=== PATIENT | male | born 1980 | race American Indian/Alaskan Native ===

== ENCOUNTER 2017-12-06 15:29 | Emergency (ER) | payer MEDICAID ==
[2017-12-06 15:41] VITALS: TEMP 99.5
--- NOTE | 2017-12-06 15:48 | ED PDOC ---
Arrival/HPI - General Chief Complaint: Weakness/Neurological Deficit Time Seen by Provider: 12/06/17 15:32 Historian: Patient, EMS - History of Present Illness Narrative History of Present Illness (Text): 12/06/17 15:43 Patient is a 37 year old male whose past medical history includes hypertension, who presents to Emergency department by EMS for an episode of near syncope. Patient reports that he was trying to stand after sleeping and felt like he was about to lose consciousness with associated numbness and tingling throughout his upper and lower extremities. He also mentions "seeing stars". Patient subsequently measured his BP at home and found it to be 91/60 which prompted his call to 911. EMS staff expressed that patient's symptoms is probably due to dehydration. Patient admits to drinking EtOH yesterday. Patient denies fevers , chills, chest pain, shortness of breath, dyspnea on exertion, cough, abdominal pain, nausea, vomiting, diarrhea, back pain, neck pain or any other complaint. Time/Duration: Prior to Arrival Symptom Onset: Sudden Activities at Onset: Rest Context: Home Past Medical History - Provider Review Nursing Documentation Reviewed: Yes - Cardiac Hx Hypertension: Yes - Psychiatric Hx Substance Use: No - Anesthesia Hx Anesthesia: No Hx Anesthesia Reactions: No Hx Malignant Hyperthermia: No Family/Social History - Physician Review Nursing Documentation Reviewed: Yes Family/Social History: No Known Family HX Smoking Status: Light Smoker < 10 Cigarettes Daily Hx Alcohol Use: No Hx Substance Use: No Allergies/Home Meds Allergies/Adverse Reactions: Allergies No Known Allergies Allergy (Verified 12/06/17 15:34) Home Medications: Home Meds Medication Instructions Recorded Confirmed No Known Home Med 12/06/17 12/06/17 Review of Systems - Physician Review All systems were reviewed & negative as marked: Yes - Review of Systems Constitutional: absent: Fevers Respiratory: absent: SOB, Cough Cardiovascular: absent: Chest Pain, [place] Gastrointestinal: absent: Abdominal Pain, Diarrhea, Nausea, Vomiting Musculoskeletal: absent: Back Pain, Neck Pain Neurological: Dizziness Physical Exam Vital Signs Reviewed: Yes Vital Signs Temp Pulse Resp BP Pulse Ox 12/06/17 21:02 65 17 128/76 100 12/06/17 19:54 68 18 125/80 100 12/06/17 15:40 99.5 F 78 18 123/79 98 Temperature: Afebrile Blood Pressure: Normal Pulse: Regular Respiratory Rate: Normal Appearance: Positive for: Well-Appearing Mental Status: Positive for: Alert and Oriented X 3 - Systems Exam Head: Present: Atraumatic, Normocephalic Pupils: Present: PERRL Extroacular Muscles: Present: EOMI Conjunctiva: Present: Normal Mouth: Present: Moist Mucous Membranes Neck: Present: Normal Range of Motion Respiratory/Chest: Present: Clear to Auscultation, Good Air Exchange. No: Respiratory Distress, Accessory Muscle Use Cardiovascular: Present: Regular Rate and Rhythm, Normal S1, S2. No: Murmurs Abdomen: No: Tenderness, Distention, Peritoneal Signs Back: Present: Normal Inspection Upper Extremity: Present: Normal Inspection. No: Cyanosis, Edema Lower Extremity: Present: Normal Inspection. No: Edema Neurological: Present: GCS=15, CN II-XII Intact, Speech Normal Skin: Present: Warm, Dry, Normal Color. No: Rashes Psychiatric: Present: Alert, Oriented x 3, Normal Insight, Normal Concentration Medical Decision Making ED Course and Treatment: 12/06/17 15:51 Impression: Patient is a 37 year old male who is complaining of near syncope and associated dizziness. Differential Diagnosis included but are not limited to: Dehydration vs.near syncope vs. vasovagal syncope Plan: --labs --cardiac enzymes --D-dimer --EKG --Chest X-ray --Urinalysis -- Reassess and disposition Prior Visits: Notes and results from previous visits were reviewed. Progress Notes: EKG shows NSR at 83 BPM with normal axis and intervals. Interpreted by me. 12/04/17 Chest X-ray shows no acute processes. 12/06/17 Reevaluation: On reevaluation the patient feels better and is in no acute distress. I have discussed the results and plan with the patient, who expresses understanding. Patient given the opportunity to ask question, all questions were answered and there is agreement with the plan to discharge the patient home. Patient is stable for discharge. Patient instructed to drink plenty of water and avoid alcohol. Patient was instructed to follow up with physician/clinic in 1-2 days or return if symptoms persist/worsen or new concerning symptoms arise. 12/06/17 21:34 - Lab Interpretations Lab Results: 12/06/17 16:20 12/06/17 16:20 Lab Results 06/08/18 19:23: Urine Opiates Screen Negative, Urine Methadone Screen Negative, Ur Barbiturates Screen Negative, Ur Phencyclidine Scrn Negative, Ur Amphetamines Screen Negative, U Benzodiazepines Scrn Negative, U Oth Cocaine Metabols Negative, U Cannabinoids Screen Negative 12/06/17 17:02: POC Glucose (mg/dL) 82 12/06/17 16:20: Alcohol, Quantitative < 10 12/06/17 16:20: Sodium 137, Potassium 3.7, Chloride 96 L, Carbon Dioxide 23, Anion Gap 21 H, BUN 20, Creatinine 1.3, Est GFR ( Amer) > 60, Est GFR ( Non-Af Amer) > 60, Random Glucose 81, Calcium 8.3 L, Total Bilirubin 3.4 H, AST 363 H, ALT 150 H, Alkaline Phosphatase 295 H, Lactate Dehydrogenase 965 H, Total Creatine Kinase 147, Troponin I 0.02, NT-Pro-B Natriuret Pep 95.5, Total Protein 7.3, Albumin 3.6, Globulin 3.7, Albumin/Globulin Ratio 1.0 L 12/06/17 16:20: Urine Color Yellow, Urine Appearance Clear, Urine pH 6.0, Ur Specific Bradley 1.020, Urine Protein Negative, Urine Glucose (UA) Negative, Urine Ketones Trace H, Urine Blood Negative, Urine Nitrate Negative, Urine Bilirubin Small H, Urine Urobilinogen 2.0 H, Ur Leukocyte Esterase Negative 12/06/17 16:20: PT 12.8 H, INR 1.12 H, D-Dimer, Quantitative < 200 12/06/17 16:20: WBC 5.0, RBC 3.83, Hgb 11.5 L, Hct 32.6 L, MCV 85.1, MCH 30.0, MCHC 35.3, RDW 14.9 H, Plt Count 296, MPV 9.6, Gran % 60.6, Lymph % (Auto) 31.4 , [place] % (Auto) 7.0 H, Eos % (Auto) 0.0 L, Baso % (Auto) 1.0, Gran # 3.01, Lymph # (Auto) 1.6, [place] # (Auto) 0.4, Eos # (Auto) 0.0, Baso # (Auto) 0.05 I have reviewed the lab results: Yes - RAD Interpretation Radiology Orders: 12/06/17 15:37 CHEST PORTABLE [RAD] Stat - EKG Interpretation Interpreted by ED Physician: Yes Type: 12 lead EKG - Medication Orders Current Medication Orders: Discontinued Medications Sodium Chloride (Sodium Chloride 0.9%) 2,000 mls @ 999 mls/hr IV .Q2H1M STA Stop: 12/06/17 19:23 Last Admin: 12/06/17 17:41 Dose: 999 mls/hr eMAR Start Stop Document 12/06/17 17:41 SF (Rec: 12/06/17 17:41 SF [email or web address]) Intravenous Solution Start Date 12/06/17 Start Time 17:41 End Date 12/06/17 End time 19:42 Total Infusion Time 121 - Scribe Statement The provider has reviewed the documentation as recorded by the Scribe Sahil Henriquez Provider Scribe Attestation: All medical record entries made by the Scribe were at my direction and personally dictated by me. I have reviewed the chart and agree that the record accurately reflects my personal performance of the history, physical exam, medical decision making, and the department course for this patient. I have also personally directed, reviewed, and agree with the discharge instructions and disposition. Disposition/Present on Arrival - Present on Arrival Any Indicators Present on Arrival: No History of DVT/PE: No History of Uncontrolled Diabetes: No Urinary Catheter: No History of Decub. Ulcer: No History Surgical Site Infection Following: None - Disposition Have Diagnosis and Disposition been Completed?: Yes Diagnosis: Mild dehydration, Near syncope Disposition: HOME/ ROUTINE Disposition Time: 20:41 Patient Plan: Discharge Condition: GOOD Discharge Instructions (ExitCare): Dehydration, Adult (DC), Vasovagal Response (DC) Additional Instructions: Drink 5 20 ounce bottles of bhatt each day. Return to us if problems. Avoid Alcohol. Referrals: [facility] Karyn Resantiago, [Primary Care Provider] - Follow up with primary Forms: WORK NOTE, [facility] (N[place]ian), SCHOOL NOTE
[2017-12-06 17:11] LABS: BASO # 0.05 K/mm3 (0.0-2.0); GRAN # 3.01 (1.4-6.5); GRAN % 60.6 % (50.0-68.0); HEMOGLOBIN 11.5 g/dL (14.0-18.0); LYMPH # 1.6 (1.2-3.4); LYMPH % 31.4 % (22.0-35.0); MEAN CELL VOLUME 85.1 fl (80.0-105.0); MEAN CORPUSCULAR HGB CONC 35.3 g/dl (31.0-37.0); MEAN PLATELET VOLUME 9.6 fl (7.0-11.0); MONO # 0.4 (0.1-0.6); RBC 3.83 10^6/uL (3.5-6.1); RED CELL DISTRIBUTION WIDTH 14.9 % (11.5-14.5); URINE BILIRUBIN SMALL (NEGATIVE); URINE BLOOD NEGATIVE (NEGATIVE); URINE GLUCOSE (UA) NEGATIVE (NEGATIVE); URINE LEUKOCYTE ESTERASE NEGATIVE Leu/uL (NEGATIVE); URINE PROTEIN NEGATIVE mg/dL (<30 mg/dL)
[2017-12-06 17:14] LABS: URINE APPEARANCE CLEAR (CLEAR); URINE COLOR YELLOW (YELLOW)
[2017-12-06 17:23] LABS: INR 1.12 (0.93-1.08); PROTHROMBIN TIME 12.8 SECONDS (9.4-12.5)
[2017-12-06] MEDS ORDERED: Sodium Chloride 0.9% 2,000 ML IV STA (17:23)
[2017-12-06 17:26] LABS: ALBUMIN 3.6 g/dL (3.0-4.8); ALT/SGPT 150 U/L (7-56); AST/SGOT 363 U/L (17-59); BLOOD UREA NITROGEN 20 mg/dL (7-21); CALCIUM 8.3 mg/dL (8.4-10.5); GFR AFRICAN-AMERICAN > 60; GFR NON-AFRICAN AMERICAN > 60
[2017-12-06 17:36] LABS: B-TYPE NATRIURETIC PEPTIDE 95.5 pg/mL (0-450); TROPONIN I 0.02 ng/mL
[2017-12-06 18:31] LABS: D DIMER < 200 ng/mL (0-243)
[2017-12-06 19:55] VITALS: O2SAT 100
[2017-12-06 20:04] LABS: BARBITURATES, UR NEGATIVE (NEGATIVE); BENZODIAZEPINES, UR NEGATIVE (NEGATIVE); OPIATES, UR NEGATIVE (NEGATIVE); PHENCYCLIDINE, UR NEGATIVE (NEGATIVE)
[2017-12-06 21:03] VITALS: BP 128/76; PULSE 65; RESP 17
--- NOTE | 2017-12-07 08:50 | RAD ---
HISTORY: Near Syncope COMPARISON: No prior. FINDINGS: LUNGS: No active pulmonary disease. PLEURA: No significant pleural effusion identified, no pneumothorax apparent. CARDIOVASCULAR: Normal. OSSEOUS STRUCTURES: No significant abnormalities. VISUALIZED UPPER ABDOMEN: Normal. OTHER FINDINGS: None. IMPRESSION: No active disease.
--- NOTE | 2017-12-07 09:51 | CARD ---
APPROVED REPORT EKG Measurement Heart [id number] 146P38 [id number] <Conclusion> Normal sinus rhythm Moderate voltage criteria for LVH, may be normal variant Nonspecific T wave abnormality
== END 2017-12-06 21:02 | disposition home or self-care (01) ==
LOC: MERGE 15:29 → ED 15:29
DX: R55 Syncope and collapse (principal)
CPT/HCPCS: 71045; 80053; 80320; 80324; 80345; 80346; 80349; 80353; 80358; 80361; 81003; 82550; 82948; 83615; 83880; 83992; 84484; 85025; 85378; 85610; 93005; 96360; 96361; 99285; J7030

== ENCOUNTER 2018-07-02 08:27 | Observation (INO) | payer MEDICAID ==
[2018-07-02] MEDS ORDERED: Sodium Chloride 0.9% 1,000 ML IV STA ×2 (08:40→09:43)
--- NOTE | 2018-07-02 08:55 | ED PDOC ---
Arrival/HPI - General Historian: Patient - History of Present Illness Narrative History of Present Illness (Text): 07/02/18 08:55 37M with recent episode of acute pancreatitis in August presents to emergency department with 24hrs of severe epigastric pain, nausea, and anorexia. Pt drank over a pint of hard liquor on , woke up yesterday AM with "terrible stomach pain", states it feels exactly the same as when he had pancreatitis. Pt denies vomit, chest pain, diarrhea, lower abdominal pains. Pt states he has had dark urines since yesterday as well. Time/Duration: 24 hours Symptom Onset: Sudden Symptom Course: Unchanged Quality: Stabbing Severity Level: Severe <Temo Casiano - Last Filed: 07/02/18 17:35> <Gerardo Cancino DO - Last Filed: 07/02/18 18:47> - General Chief Complaint: Abdominal Pain Time Seen by Provider: 07/02/18 08:32 Past Medical History - Provider Review Nursing Documentation Reviewed: Yes - Infectious Disease Hx of Infectious Diseases: None - Cardiac Hx Hypertension: Yes - Pulmonary Hx Respiratory Disorders: No - Neurological Hx Neurological Disorder: No - HEENT Hx HEENT Disorder: No - Renal Hx Renal Disorder: No - Endocrine/Metabolic Hx Endocrine Disorders: No - Hematological/Oncological Hx Blood Disorders: No Hx Blood Transfusions: No Hx Blood Transfusion Reaction: No - Integumentary Hx Dermatological Disorder: No - Musculoskeletal/Rheumatological Hx Musculoskeletal Disorders: No Hx Falls: No - Gastrointestinal Hx Gastrointestinal Disorders: Yes Hx Gastroesophageal Reflux: Yes - Genitourinary/Gynecological Hx Genitourinary Disorders: No - Psychiatric Hx Psychophysiologic Disorder: No Hx Substance Use: No - Surgical History Hx Appendectomy: Yes Hx Cholecystectomy: Yes Hx Gastric Bypass Surgery: Yes - Anesthesia Hx Anesthesia: Yes <Temo Casiano - Last Filed: 07/02/18 17:35> Family/Social History - Physician Review Nursing Documentation Reviewed: Yes Family/Social History: Unknown Family HX Smoking Status: Never Smoked Hx Alcohol Use: Yes Frequency of alcohol use: Few days per week Hx Substance Use: No <Temo Casiano - Last Filed: 07/02/18 17:35> Allergies/Home Meds <Temo Casiano - Last Filed: 07/02/18 17:35> <Gerardo Cancino DO - Last Filed: 07/02/18 18:47> Allergies/Adverse Reactions: Allergies ramipril Adverse Reaction (Verified 07/02/18 08:34) ANGIOEDEMA Home Medications: Home Meds Medication Instructions Recorded Confirmed Losartan [Cozaar] 50 mg PO DAILY 07/02/18 07/02/18 Review of Systems - Physician Review All systems were reviewed & negative as marked: Yes - Review of Systems Constitutional: absent: Fevers, Night Sweats Respiratory: absent: SOB, Cough Cardiovascular: absent: Chest Pain, Palpitations Gastrointestinal: Abdominal Pain (sever epigastric), Nausea, Anorexia. absent: Diarrhea, Vomiting, Hematemesis Genitourinary Male: Other (dark urine) Musculoskeletal: Back Pain Skin: absent: Rash Neurological: absent: Headache <Temo Casiano - Last Filed: 07/02/18 17:35> Physical Exam Vital Signs Reviewed: Yes Vital Signs Temp Pulse Resp BP Pulse Ox 07/02/18 08:28 98.2 F 91 H 20 146/100 H 97 Temperature: Afebrile Blood Pressure: Hypertensive Pulse: Regular Respiratory Rate: Normal Appearance: Positive for: Non-Toxic, Uncomfortable Pain Distress: Moderate Mental Status: Positive for: Alert and Oriented X 3 - Systems Exam Head: Present: Atraumatic, Normocephalic Pupils: Present: PERRL Extroacular Muscles: Present: EOMI. No: Gaze Palsy Mouth: Present: Moist Mucous Membranes Respiratory/Chest: Present: Clear to Auscultation. No: Respiratory Distress, Wheezes, Rales Cardiovascular: Present: Regular Rate and Rhythm, Normal S1, S2 Abdomen: Present: Tenderness (mid epigastrum radiates to L side and back with deep palpation), Distention Upper Extremity: Present: Normal Inspection, NORMAL PULSES Neurological: Present: GCS=15, CN II-XII Intact Skin: Present: Warm, Dry. No: Rashes Psychiatric: Present: Alert, Oriented x 3 <Temo Casiano - Last Filed: 07/02/18 17:35> Vital Signs Temp Pulse Resp BP Pulse Ox 07/02/18 08:28 98.2 F 91 H 20 146/100 H 97 <Gerardo Cancino DO - Last Filed: 07/02/18 18:47> Medical Decision Making ED Course and Treatment: 07/02/18 09:06 #acute pancreatitis -NS 1 L Bolus -follow up cbc cmp lipase -Toradol 30 IVP -Zofran 4 IVP -Pepcid 20 IVP - Medication Orders Current Medication Orders: Sodium Chloride (Sodium Chloride 0.9%) 1,000 mls @ 1,000 mls/hr IV .Q1H STA Stop: 07/02/18 09:39 Ketorolac Tromethamine (Toradol) 30 mg IVP STAT STA Stop: 07/02/18 08:54 Discontinued Medications Famotidine (Pepcid) 20 mg IVP STAT STA Stop: 07/02/18 08:41 Ondansetron HCl (Zofran Inj) 4 mg IVP STAT STA Stop: 07/02/18 08:41 <Temo Casiano - Last Filed: 07/02/18 17:35> ED Course and Treatment: 07/02/18 09:21 Impression: 37 year old male presents to the emergency department complaining of abdominal pain and nausea since 24 hours. In agreement with resident note which contains more details about the patient. Patient seen and evaluated with resident. Came up with plan and treatment together. Plan: -- Labs -- Pepcid -- Toradol -- Zofran -- IV Fluids - Medication Orders Current Medication Orders: Sodium Chloride (Sodium Chloride 0.9%) 1,000 mls @ 1,000 mls/hr IV .Q1H STA Stop: 07/02/18 09:39 Last Admin: 07/02/18 09:09 Dose: 1,000 mls/hr eMAR Start Stop Document 07/02/18 09:09 SRE (Rec: 07/02/18 09:09 SRE [id number]) Intravenous Solution Start Date 07/02/18 Start Time 09:00 End Date 07/02/18 End time 10:00 Total Infusion Time 60 Discontinued Medications Famotidine (Pepcid) 20 mg IVP STAT STA Stop: 07/02/18 08:41 Last Admin: 07/02/18 09:05 Dose: 20 mg IVP Administration Document 07/02/18 09:05 SRE (Rec: 07/02/18 09:11 SRE [id number]) Charges for Administration # of IVP Administrations 1 Ketorolac Tromethamine (Toradol) 30 mg IVP STAT STA Stop: 07/02/18 08:54 Last Admin: 07/02/18 09:11 Dose: 30 mg MAR Pain Assessment Document 07/02/18 09:11 SRE (Rec: 07/02/18 09:11 [id number] Pain Reassessment Is this a pain reassessment? Yes Sleep Is patient sleeping during reassessment? No Presence of Pain Presence of Pain Yes Pain Scale Used Protocol: PSCALES Pain Scale Used Numeric Location Pain Location Body Site Abdomen Description Description Intermittent IVP Administration Document 07/02/18 09:11 SRE (Rec: 07/02/18 09:11 [id number] Charges for Administration # of IVP Administrations 1 Ondansetron HCl (Zofran Inj) 4 mg IVP STAT STA Stop: 07/02/18 08:41 Last Admin: 07/02/18 09:11 Dose: 4 mg IVP Administration Document 07/02/18 09:11 SRE (Rec: 07/02/18 09:11 [id number] Charges for Administration # of IVP Administrations 1 <Gerardo Cancino DO - Last Filed: 07/02/18 18:47> - PA / GRAIN ELEVATOR AGENT / Resident Statement MICHAEL has reviewed & agrees with the documentation as recorded. MICHAEL has examined the patient and agrees with the treatment plan. - Scribe Statement The provider has reviewed the documentation as recorded by the Scribe Tung maxwell with Jez All medical record entries made by the Scribe were at my direction and personally dictated by me. I have reviewed the chart and agree that the record accurately reflects my personal performance of the history, physical exam, medical decision making, and the department course for this patient. I have also personally directed, reviewed, and agree with the discharge instructions and disposition. <Gerardo Cancino DO - Last Filed: 07/02/18 18:47> Disposition/Present on Arrival - Present on Arrival Any Indicators Present on Arrival: No History of DVT/PE: No History of Uncontrolled Diabetes: No Urinary Catheter: No History of Decub. Ulcer: No History Surgical Site Infection Following: None - Disposition Have Diagnosis and Disposition been Completed?: Yes Disposition Time: 17:35 <Temo Casiano - Last Filed: 07/02/18 17:35> - Disposition Disposition Time: 11:00 <Gerardo Cancino DO - Last Filed: 07/02/18 18:47> - Disposition Diagnosis: Pancreatitis Disposition: HOSPITALIZED Patient Problems: Current Active Problems Problem Status Onset Pancreatitis Acute Condition: STABLE
[2018-07-02 09:32] LABS: BASO # 0.01 K/mm3 (0.0-2.0); BASO % 0.1 % (0.0-3.0); EOS # 0.1 (0.0-0.7); EOS % 0.7 % (1.5-5.0); GRAN # 6.11 (1.4-6.5); GRAN % 83.6 % (50.0-68.0); HEMOGLOBIN 12.2 g/dL (14.0-18.0); LYMPH # 0.7 (1.2-3.4); LYMPH % 10.1 % (22.0-35.0); MEAN CELL VOLUME 86.7 fl (80.0-105.0); MEAN CORPUSCULAR HGB CONC 34.7 g/dl (31.0-37.0); MEAN PLATELET VOLUME 9.5 fl (7.0-11.0); MONO # 0.4 (0.1-0.6); MONO % 5.5 % (1.0-6.0); RBC 4.06 10^6/uL (3.5-6.1); RED CELL DISTRIBUTION WIDTH 13.3 % (11.5-14.5); WHITE BLOOD COUNT 7.3 10^3/uL (4.5-11.0)
[2018-07-02 09:41] LABS: ALB/GLOB RATIO 1.2 (1.1-1.8); ALBUMIN 4.4 g/dL (3.0-4.8); ALT/SGPT 164 U/L (7-56); AST/SGOT 324 U/L (17-59); BLOOD UREA NITROGEN 10 mg/dL (7-21); CALCIUM 9.8 mg/dL (8.4-10.5); GFR NON-AFRICAN AMERICAN > 60; LIPASE 1637 U/L (23-300)
[2018-07-02] MEDS ORDERED: Potassium Chloride 20 mEq ER Tab PO STA (09:42)
[2018-07-02] MEDS ORDERED: Iohexol 350 MG/100 ML VIAL ONE (10:49)
--- NOTE | 2018-07-02 12:06 | CT ---
Date of service: 07/02/2018 PROCEDURE: CT Abdomen and Pelvis with contrast HISTORY: abdominal pain, elevated lipase COMPARISON: None. TECHNIQUE: Intravenous contrast dose: 100 cc Omnipaque 350 Radiation dose: Total exam DLP = 1184.53 mGy-cm. This CT exam was performed using one or more of the following dose reduction techniques: Automated exposure control, adjustment of the mA and/or kV according to patient size, and/or use of iterative reconstruction technique. FINDINGS: LOWER THORAX: Unremarkable. LIVER: Hepatic steatosis. No focal masses. No intrahepatic bile duct dilatation or perihepatic ascites. GALLBLADDER AND BILE DUCTS: Status post cholecystectomy. No abnormality is seen in the gallbladder fossa. No evidence of common bile duct dilatation or common duct stone. PANCREAS: Inflammatory changes primarily affecting body and tail of the pancreas. Peripancreatic fluid noted. No CT evidence of necrotizing pancreatitis. No evidence of chronic pancreatitis or pseudocyst formation. SPLEEN: Unremarkable. ADRENALS: Unremarkable. No mass. KIDNEYS AND URETERS: Unremarkable. No hydronephrosis. No solid mass. VASCULATURE: Unremarkable. No aortic aneurysm. No atherosclerotic calcification or mural plaque present. BOWEL: Postoperative changes left upper quadrant-stomach. APPENDIX: Prior appendectomy. PERITONEUM: Unremarkable. No free fluid. No free air. LYMPH NODES: Unremarkable. No enlarged lymph nodes. BLADDER: Unremarkable. REPRODUCTIVE: Unremarkable. BONES: No acute fracture. OTHER FINDINGS: Postoperative changes/surgical clips left bib abdomen. IMPRESSION: CT manifestations of acute pancreatitis limited to the distal body and tail. No CT evidence of necrotizing pancreatitis. Additional enign and/or incidental findings described above.
--- NOTE | 2018-07-02 13:06 | CARD ---
APPROVED REPORT Date of service: 07/02/2018 EKG Measurement Heart [id number] [place] 156P31 [id number] <Conclusion> Normal sinus rhythm Voltage criteria for left ventricular hypertrophy T wave abnormality, consider lateral ischemia
[2018-07-02] MEDS ORDERED: Morphine 2 mg/ml ISec IVP STA ×2 (13:11→13:47)
[2018-07-02] MEDS ORDERED: Sodium Chloride 0.9% 1,000 ML IV SCH (13:15)
[2018-07-02 14:05] LABS: BARBITURATES, UR NEGATIVE (NEGATIVE); BENZODIAZEPINES, UR NEGATIVE (NEGATIVE); OPIATES, UR NEGATIVE (NEGATIVE); PHENCYCLIDINE, UR NEGATIVE (NEGATIVE)
[2018-07-02 14:09] LABS: PH,URINE 6.5 (4.7-8.0); URINE BILIRUBIN NEGATIVE (NEGATIVE); URINE BLOOD NEGATIVE (NEGATIVE); URINE GLUCOSE (UA) NEGATIVE (NEGATIVE); URINE LEUKOCYTE ESTERASE NEGATIVE Leu/uL (NEGATIVE); URINE PROTEIN NEGATIVE mg/dL (<30 mg/dL)
[2018-07-02 14:11] LABS: URINE APPEARANCE CLEAR (CLEAR); URINE COLOR YELLOW (YELLOW)
--- NOTE | 2018-07-02 14:58 | CP.PCM.HP ---
<NickolasCheco - Last Filed: 07/02/18 14:42> History of Present Illness - History of Present Illness History of Present Illness: Medicine History and Physical for Hospitalist Service, Dr. Ly Olmos, DO PGY-1 This is a 37 y o male with PMhx HTN, acute pancreatitis treated in August 2017, who presented to the ED c/o 1 day history of severe epigastric pain radiating to back, nausea, and anorexia. States that he binge drinks 5 shots of cognac every other day, last had EtOH use on 2 days ago. Has been binge drinking for the past 6-8 mos after being laid off from his job. States he woke up yesterday am with generalized abdominal discomfort, gas pain, and bloating. Tried Tylenol and Advil for symptoms without relief. Admits to associated nausea. Denies vomiting. Reports he was sick with stomach virus last week and only had symptoms of watery diarrhea x 4 days, but that has since resolved. Last ate 2 days ago. Tried to drink small sips of water at home when symptoms started but was unable to tolerate due to worsening nausea. Admits to associated constipation, last BM was 1-2 days ago. Denies headache, dizziness, fever, chills, chest pain, sob. Reports urine was dark this am as well. 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 Yang Present on Admission - Present on Admission Any Indicators Present on Admission: No History of DVT/PE: No History of Uncontrolled Diabetes: No Urinary Catheter: No Decubitus Ulcer Present: No Review of Systems - Constitutional Constitutional: Anorexia. absent: Chills, Fever - Cardiovascular Cardiovascular: absent: Chest Pain, Dyspnea on Exertion - Respiratory Respiratory: absent: Cough, Hemoptysis, Wheezing - Gastrointestinal Gastrointestinal: Abdominal Pain, Bloating, Constipation, Nausea. absent: Diarrhea, Vomiting Past Patient History - Infectious Disease Hx of Infectious Diseases: None - Past Medical History & Family History Past Medical History?: Yes - Past Social History Smoking Status: Never Smoked - CARDIAC Hx Hypertension: Yes - PULMONARY Hx Respiratory Disorders: No - NEUROLOGICAL Hx Neurological Disorder: No - HEENT Hx HEENT Problems: No - RENAL Hx Chronic Kidney Disease: No - ENDOCRINE/METABOLIC Hx Endocrine Disorders: No - HEMATOLOGICAL/ONCOLOGICAL Hx Blood Disorders: No Hx Blood Transfusions: No Hx Blood Transfusion Reaction: No - INTEGUMENTARY Hx Dermatological Problems: No - MUSCULOSKELETAL/RHEUMATOLOGICAL Hx Musculoskeletal Disorders: No Hx Falls: No - GASTROINTESTINAL Hx Gastrointestinal Disorders: Yes Hx Gastroesophageal Reflux: Yes - GENITOURINARY/GYNECOLOGICAL Hx Genitourinary Disorders: No - PSYCHIATRIC Hx Psychophysiologic Disorder: No Hx Substance Use: No - SURGICAL HISTORY Hx Appendectomy: Yes Hx Cholecystectomy: Yes Hx Gastric Bypass Surgery: Yes - ANESTHESIA Hx Anesthesia: Yes Meds Allergies/Adverse Reactions: Allergies Allergy/AdvReac Type Severity Reaction Status Date / Time ramipril AdvReac ANGIOEDEMA Verified 07/02/18 08:34 Physical Exam - Constitutional Appears: Non-toxic, No Acute Distress - Head Exam Head Exam: ATRAUMATIC, NORMOCEPHALIC - Eye Exam Eye Exam: EOMI, Normal appearance, PERRL - ENT Exam ENT Exam: Mucous Membranes Moist - Respiratory Exam Respiratory Exam: Clear to Auscultation Bilateral, NORMAL BREATHING PATTERN. absent: Rales, Rhonchi, Wheezes - Cardiovascular Exam Cardiovascular Exam: REGULAR RHYTHM, +S1, +S2. absent: Gallop, Rubs, Systolic Murmur - GI/Abdominal Exam GI & Abdominal Exam: Diminished Bowel Sounds, Distended, Organomegaly, Soft, Tenderness. absent: Guarding, Rebound Additional comments: Hepatomegaly appreciated on exam, no fluid wave palpated - Extremities Exam Extremities exam: Positive for: full ROM, normal capillary refill, normal inspection, pedal pulses present. Negative for: pedal edema - Neurological Exam Neurological exam: Alert, CN II-XII Intact, Normal Gait, Oriented x3, Reflexes Normal - Skin Skin Exam: Dry, Intact, Normal Color, Warm Results - Vital Signs Recent Vital Signs: Last Vital Signs Temp 98.8 F 07/02/18 13:51 Pulse 89 07/02/18 13:51 Resp 18 07/02/18 13:51 BP 138/91 H 07/02/18 13:51 Pulse Ox 96 07/02/18 13:51 - Labs Result Diagrams: 07/02/18 09:00 07/02/18 09:00 Labs: Laboratory Results - last 24 hr 07/02/18 07/02/18 07/02/18 09:00 09:00 12:00 WBC 7.3 RBC 4.06 Hgb 12.2 L Hct 35.2 L MCV 86.7 MCH 30.0 MCHC 34.7 RDW 13.3 Plt Count 314 MPV 9.5 Gran % 83.6 H Lymph % (Auto) 10.1 L [place] % (Auto) 5.5 Eos % (Auto) 0.7 L Baso % (Auto) 0.1 Gran # 6.11 Lymph # (Auto) 0.7 L [place] # (Auto) 0.4 Eos # (Auto) 0.1 Baso # (Auto) 0.01 Sodium 136 Potassium 2.9 L* D Chloride 95 L Carbon Dioxide 35 H Anion Gap 10 BUN 10 Creatinine 0.8 Est GFR ( Amer) > 60 Est GFR (Non-Af Amer) > 60 Random Glucose 144 H Calcium 9.8 Magnesium 1.9 Total Bilirubin 2.4 H AST 324 H ALT 164 H Alkaline Phosphatase 210 H D Total Protein 8.0 Albumin 4.4 Globulin 3.6 Albumin/Globulin Ratio 1.2 Lipase 1637 H Urine Color Yellow Urine Appearance Clear Urine pH 6.5 Ur Specific [place] 1.015 Urine Protein Negative Urine Glucose (UA) Negative Urine Ketones Negative Urine Blood Negative Urine Nitrate Negative Urine Bilirubin Negative Urine Urobilinogen 1.0 H Ur Leukocyte Esterase Negative Urine Opiates Screen Urine Methadone Screen Ur Barbiturates Screen Ur Phencyclidine Scrn Ur Amphetamines Screen U Benzodiazepines Scrn U Oth Cocaine Metabols U Cannabinoids Screen 07/02/18 12:00 WBC RBC Hgb Hct MCV MCH MCHC RDW Plt Count MPV Gran % Lymph % (Auto) [place] % (Auto) Eos % (Auto) Baso % (Auto) Gran # Lymph # (Auto) [place] # (Auto) Eos # (Auto) Baso # (Auto) Sodium Potassium Chloride Carbon Dioxide Anion Gap BUN Creatinine Est GFR ( Amer) Est GFR (Non-Af Amer) Random Glucose Calcium Magnesium Total Bilirubin AST ALT Alkaline Phosphatase Total Protein Albumin Globulin Albumin/Globulin Ratio Lipase Urine Color Urine Appearance Urine pH Ur Specific [place] Urine Protein Urine Glucose (UA) Urine Ketones Urine Blood Urine Nitrate Urine Bilirubin Urine Urobilinogen Ur Leukocyte Esterase Urine Opiates Screen Negative Urine Methadone Screen Negative Ur Barbiturates Screen Negative Ur Phencyclidine Scrn Negative Ur Amphetamines Screen Negative U Benzodiazepines Scrn Negative U Oth Cocaine Metabols Negative U Cannabinoids Screen Negative Assessment & Plan - Assessment and Plan (Free Text) Assessment: This is a 37 y o male with PMhx HTN, acute pancreatitis treated in August 2017, who presented to the ED c/o 1 day history of severe epigastric pain radiating to back, nausea, and anorexia. Admitted for management of acute pancreatitis. Plan: Acute Pancreatitis Admit to med/surg NPO diet except for meds LR at 150 cc/hr CT abd/pelvis: CT manifestations of acute pancreatitis limited to distal body and tail. No CT evidence of necrotizing pancreatitis. Hepatic steatosis. Toradol 30 mg q6h prn for pain x4 doses Repeat EKG tomorrow am for prolonged QTc noted on EKG on admission EtOH withdrawal CIWA protocol Ativan 1 mg q4h prn Currently not showing any clinical signs of withdrawal at this time, will continue to monitor Transaminitis AST/ALT 324/162 Likely 2/2 EtOH abuse vs. hepatic steatosis noted on CT scan Continue to trend Avoid hepatotoxic meds Dark urine/questionable urinary retention Likely 2/2 to dehydration Bladder scan ordered BUN/Cr 10/0.8 on admission Hx HTN C/w home meds Losartan, Amlodipine, Atenolol and HCTZ with holding parameters Continue to trend DVT/GI ppx: SCDs/Protonix Pt seen, examined with, and plan discussed with Dr. Ortega, attending physician. Checo Olmos DO PGY-1, Product Marketing Executive Pager #[phone] <Ly Ortega R - Last Filed: 07/02/18 17:32> Results - Vital Signs Recent Vital Signs: Last Vital Signs Temp 98.8 F 07/02/18 13:51 Pulse 89 07/02/18 13:51 Resp 18 07/02/18 13:51 BP 138/91 H 07/02/18 13:51 Pulse Ox 96 07/02/18 13:51 - Labs Result Diagrams: 07/02/18 09:00 07/02/18 09:00 Labs: Laboratory Results - last 24 hr 07/02/18 07/02/18 07/02/18 09:00 09:00 12:00 WBC 7.3 RBC 4.06 Hgb 12.2 L Hct 35.2 L MCV 86.7 MCH 30.0 MCHC 34.7 RDW 13.3 Plt Count 314 MPV 9.5 Gran % 83.6 H Lymph % (Auto) 10.1 L [place] % (Auto) 5.5 Eos % (Auto) 0.7 L Baso % (Auto) 0.1 Gran # 6.11 Lymph # (Auto) 0.7 L [place] # (Auto) 0.4 Eos # (Auto) 0.1 Baso # (Auto) 0.01 Sodium 136 Potassium 2.9 L* D Chloride 95 L Carbon Dioxide 35 H Anion Gap 10 BUN 10 Creatinine 0.8 Est GFR ( Amer) > 60 Est GFR (Non-Af Amer) > 60 Random Glucose 144 H Calcium 9.8 Magnesium 1.9 Total Bilirubin 2.4 H AST 324 H ALT 164 H Alkaline Phosphatase 210 H D Total Protein 8.0 Albumin 4.4 Globulin 3.6 Albumin/Globulin Ratio 1.2 Lipase 1637 H Urine Color Yellow Urine Appearance Clear Urine pH 6.5 Ur Specific [place] 1.015 Urine Protein Negative Urine Glucose (UA) Negative Urine Ketones Negative Urine Blood Negative Urine Nitrate Negative Urine Bilirubin Negative Urine Urobilinogen 1.0 H Ur Leukocyte Esterase Negative Urine Opiates Screen Urine Methadone Screen Ur Barbiturates Screen Ur Phencyclidine Scrn Ur Amphetamines Screen U Benzodiazepines Scrn U Oth Cocaine Metabols U Cannabinoids Screen 07/02/18 12:00 WBC RBC Hgb Hct MCV MCH MCHC RDW Plt Count MPV Gran % Lymph % (Auto) [place] % (Auto) Eos % (Auto) Baso % (Auto) Gran # Lymph # (Auto) [place] # (Auto) Eos # (Auto) Baso # (Auto) Sodium Potassium Chloride Carbon Dioxide Anion Gap BUN Creatinine Est GFR ( Amer) Est GFR (Non-Af Amer) Random Glucose Calcium Magnesium Total Bilirubin AST ALT Alkaline Phosphatase Total Protein Albumin Globulin Albumin/Globulin Ratio Lipase Urine Color Urine Appearance Urine pH Ur Specific [place] Urine Protein Urine Glucose (UA) Urine Ketones Urine Blood Urine Nitrate Urine Bilirubin Urine Urobilinogen Ur Leukocyte Esterase Urine Opiates Screen Negative Urine Methadone Screen Negative Ur Barbiturates Screen Negative Ur Phencyclidine Scrn Negative Ur Amphetamines Screen Negative U Benzodiazepines Scrn Negative U Oth Cocaine Metabols Negative U Cannabinoids Screen Negative Attending/Attestation - Attestation I have personally seen and examined this patient.: Yes I have fully participated in the care of the patient.: Yes I have reviewed all pertinent clinical information: Yes Notes (Text): Patient seen and examined by me with resident at 2 PM on 07/02/18. Case including HPI, physical exam, and assessment and plan discussed with resident. Agree with above with following additions/corrections. Patient is a 37-year-old male with past medical history significant for hypertension, alcohol abuse, pancreatitis that presents to the emergency room with epigastric pain and nausea that started this morning. Patient states that he drinks 4-6 shots of liquor every other day for the past 6-8 months. Last drink was 06/30/2018. Patient states that yesterday he woke up in the morning and had some abdominal discomfort and felt "gassy and bloated." Patient states he took Tylenol and had full throughout the day with some relief. He also had some nausea. He states he woke up this morning and is stomach felt like it was "burning." He states he also had severe epigastric pain that radiated to the right side of his abdomen and around to his back. He states that the pain is sharp and constant. He tried Advil this morning without any relief. He states he still has nausea but no vomiting. He states he has not had any food in the past day and a half to 2 days. He states that he has been trying to drink a little bit of watery urine there but has burning in his throat and nausea. Patient states that he also feels very bloated. He states he is having some difficulty u rinating and that it is dark colored. Patient states his last bowel movement was 1-2 days ago. He denies any blood in stool. No chest pain or shortness of breath. No headaches or dizziness. No fevers or chills. No dysuria. Patient states that this also happened in August 2017 and patient was treated for pancreatitis at that time. 12 point review of systems reviewed by me. See above HPI, all other systems negative. Physical exam: General: Awake and alert lying in bed in no acute distress HEENT: Normocephalic, atraumatic. Extraocular muscles intact, pupils equal and reactive, no scleral icterus. Oropharynx is pink and moist. No pharyngeal erythema or exudate appreciated. Neck is supple. Hearing grossly intact. Ears and nose externally unremarkable. Cardiovascular: Regular rhythm.Normal S1 and S2. No murmurs, rubs, or gallops appreciated Pulmonary: Normal respiratory effort. No rhonchi, rales, or wheezing appreciated Gastrointestinal: Soft, distended. Positive epigastric and right upper quadrant pain. Positive hepatomegaly. Positive bowel sounds all 4 quadrants. No guarding. Musculoskeletal: Moves all extremities. No calf tenderness. No edema appreciated. No CVA tenderness. Vascular: 2+ peripheral pulses upper and lower extremities Central nervous system: AAOx 3, CN 2-12 grossly intact. 5 out of 5 muscle strength all extremities. Dermatologic: Skin warm and dry. Assessment and plan: 1. Acute pancreatitis. CT abdomen pelvis per radiologist showed CT manifestations of acute pancreatitis limited to the distal body until, no evidence of necrotizing pancreatitis. Patient made nothing by mouth except medications. Placed on IV fluids. We'll advance to clears on pain has improved. 2. Hypokalemia. Potassium 2.9. Replace with oral and IV potassium. Follow up repeat labs in a.m. Patient recently had diarrhea. May also be secondary to patient's hydrochlorothiazide 3. Alcohol abuse. Placed on CIWA protocol. Counseled on cessation. Placed on thiamine, folic acid, multivitamin. 4. Transaminitis. Secondary to alcohol abuse. Also with hepatic steatosis on CT abdomen and pelvis. Patient advised diet and exercise. Counseled on alcohol cessation. Monitor LFT trend 5. Difficulty urinating. Urinalysis with no infection. Will check bladder scan. Renal function within normal limits. 6. Essential hypertension. Continue home losartan, amlodipine, atenolol, and hydrochlorothiazide. 7. GI/DVT prophylaxis. Protonix/SCDs 8. Patient is a full code Case was discussed in detail with the patient regarding current diagnosis and treatment plan. All questions answered.
[2018-07-02] MEDS: Lactated Ringer's 1,000 ML IV SCH ×2 (15:37→20:42)
[2018-07-02 20:09] VITALS: BMI 36.9
[2018-07-02] MEDS ORDERED: Pneumococcal 23-Valent Vaccine IM ONE (20:09)
[2018-07-02] MEDS ORDERED: Influenza Vaccine 60 mcg/0.5 mL SYR (4YR UP) IM ONE (20:09)
[2018-07-03 06:44] LABS: BASO # 0.02 K/mm3 (0.0-2.0); BASO % 0.3 % (0.0-3.0); EOS # 0.1 (0.0-0.7); EOS % 1.9 % (1.5-5.0); GRAN # 5.16 (1.4-6.5); GRAN % 74.6 % (50.0-68.0); HEMOGLOBIN 10.4 g/dL (14.0-18.0); LYMPH # 1.1 (1.2-3.4); MEAN CELL VOLUME 87.5 fl (80.0-105.0); MEAN CORPUSCULAR HEMOGLOBIN 29.5 pg (25.0-35.0); MEAN CORPUSCULAR HGB CONC 33.7 g/dl (31.0-37.0); MEAN PLATELET VOLUME 9.8 fl (7.0-11.0); MONO # 0.5 (0.1-0.6); MONO % 7.2 % (1.0-6.0); RBC 3.53 10^6/uL (3.5-6.1); RED CELL DISTRIBUTION WIDTH 13.2 % (11.5-14.5); WHITE BLOOD COUNT 6.9 10^3/uL (4.5-11.0)
[2018-07-03 06:49] LABS: INR 1.13; PARTIAL THROMBOPLASTIN TIME 28.6 Seconds (25.1-36.5)
[2018-07-03 07:13] LABS: BLOOD UREA NITROGEN 7 mg/dL (7-21); GFR NON-AFRICAN AMERICAN > 60
[2018-07-03 07:14] LABS: ALB/GLOB RATIO 1.2 (1.1-1.8); ALBUMIN 3.7 g/dL (3.0-4.8); ALT/SGPT 103 U/L (7-56); AST/SGOT 112 U/L (17-59); CALCIUM 9.1 mg/dL (8.4-10.5)
[2018-07-03] MEDS ORDERED: Potassium Chloride 20 mEq ER Tab PO STA (07:15)
[2018-07-03] MEDS: Morphine 2 mg/ml ISec IVP PRN ×4 (09:06→22:08)
[2018-07-03] MEDS: Lactated Ringer's 1,000 ML IV SCH ×2 (09:06→17:40)
[2018-07-03] MEDS: Multivitamin Therapeutic Tab PO SCH (09:07)
--- NOTE | 2018-07-03 09:27 | CARD ---
APPROVED REPORT Date of service: 07/03/2018 EKG Measurement Heart [id number] <Conclusion> Normal sinus rhythm High Voltage may be normal variant for Young Age. Nonspecific ST abnormality
[2018-07-03] MEDS ORDERED: Potassium Chloride 20 mEq ER Tab PO ONE (12:00)
--- NOTE | 2018-07-03 12:53 | CP.PCM.PN ---
<Checo Olmos - Last Filed: 07/03/18 13:45> Subjective - Date & Time of Evaluation Date of Evaluation: 07/03/18 Time of Evaluation: 07:45 - Subjective Subjective: Medicine Progress Note for Hospitalist Service, Dr. Ly Olmos, DO PGY-1 Pt seen and examined at bedside this am. States abd pain is a little better this am, admits to passing flatus. States urine is less dark this am and urinary retention has resolved. Denies fever or chills. Had clear liquid diet this am which made his stomach hurt a little but denied nausea or vomiting. Denies chest pain, sob, d/c, or other symptoms. Objective - Vital Signs/Intake and Output Vital Signs (last 24 hours): Temp Pulse Resp BP Pulse Ox 98.2 F 77 18 146/102 H 96 07/03/18 08:17 07/03/18 09:04 07/03/18 08:17 07/03/18 09:06 07/03/18 08:17 Intake and Output: 07/03/18 07/03/18 06:59 18:59 Intake Total 1800 Balance 1800 - Medications Medications: Current Medications Amlodipine Besylate (Norvasc) 10 mg PO DAILY [facility] Last Admin: 07/03/18 09:06 Dose: 10 mg Atenolol (Tenormin) 100 mg PO DIN [facility] Last Admin: 07/02/18 17:52 Dose: 100 mg Folic Acid (Folic Acid) 1 mg PO DAILY [facility] Last Admin: 07/03/18 09:05 Dose: 1 mg Hydrochlorothiazide (Hydrodiuril) 25 mg PO DAILY [facility] Lactated Ringer's (Lactated Ringer's) 1,000 mls @ 100 mls/hr IV .Q10H [facility] Last Admin: 07/03/18 09:06 Dose: 100 mls/hr Ketorolac Tromethamine (Toradol) 30 mg IVP Q6H PRN PRN Reason: Pain, severe (8-10) Last Admin: 07/02/18 18:59 Dose: 30 mg Lorazepam (Ativan) 1 mg IVP Q8H PRN; Protocol PRN Reason: Agitation Last Admin: 07/03/18 10:16 Dose: 1 mg Losartan Potassium (Cozaar) 50 mg PO DAILY [facility] Last Admin: 07/03/18 09:04 Dose: 50 mg Morphine Sulfate (Morphine) 2 mg IVP Q4H PRN PRN Reason: Pain, severe (8-10) Last Admin: 07/03/18 09:06 Dose: 2 mg Multivitamins (Thera Tab) 1 tab PO 0800 [facility] Last Admin: 07/03/18 09:07 Dose: 1 tab Pantoprazole Sodium (Protonix Inj) 40 mg IVP DAILY [facility] Last Admin: 07/03/18 09:07 Dose: 40 mg Thiamine HCl (Vitamin B1 Tab) 100 mg PO DAILY [facility] Last Admin: 07/03/18 09:07 Dose: 100 mg - Labs Labs: 07/03/18 06:00 07/03/18 06:00 PT 13.0 SECONDS (9.4-12.5) H 07/03/18 06:00 INR 1.13 07/03/18 06:00 APTT 28.6 Seconds (25.1-36.5) 07/03/18 06:00 - Constitutional Appears: Non-toxic, No Acute Distress - Head Exam Head Exam: ATRAUMATIC, NORMOCEPHALIC - Eye Exam Eye Exam: EOMI, Normal appearance, PERRL - ENT Exam ENT Exam: Mucous Membranes Moist - Respiratory Exam Respiratory Exam: Clear to Ausculation Bilateral, NORMAL BREATHING PATTERN. absent: Rales, Rhonchi, Wheezes - Cardiovascular Exam Cardiovascular Exam: REGULAR RHYTHM, +S1, +S2. absent: Gallop, Rubs, Murmur - GI/Abdominal Exam GI & Abdominal Exam: Distended, Soft, Tenderness (Tenderness to palpation in epigastric region), Normal Bowel Sounds, Organomegaly (hepatomegaly). absent: Guarding, Rigid - Extremities Exam Extremities Exam: Full ROM, Normal Capillary Refill, Normal Inspection. absent: Pedal Edema, Tenderness - Neurological Exam Neurological Exam: Alert, Awake, CN II-XII Intact, Normal Gait, Oriented x3 - Skin Skin Exam: Dry, Intact, Normal Color, Warm Assessment and Plan - Assessment and Plan (Free Text) Assessment: This is a 37 y o male with PMhx HTN, acute pancreatitis treated in August 2017, who presented to the ED c/o 1 day history of severe epigastric pain radiating to back, nausea, and anorexia. Admitted for management of acute pancreatitis. Plan: Acute Pancreatitis Admit to med/surg On CLD, advance as tolerated IVF d/c'd 2/[address] abd/pelvis: CT manifestations of acute pancreatitis limited to distal body and tail. No CT evidence of necrotizing pancreatitis. Hepatic steatosis. Morphine 2 mg q4h prn Repeat EKG this am demonstrates prolonged QTc again, no acute St-t wave changes EtOH withdrawal Last CIWA score of 1 this am Ativan d/c'd Currently not showing any clinical signs of withdrawal at this time, will continue to monitor Transaminitis AST/ALT 112/103, trending down this am Likely 2/2 EtOH abuse vs. hepatic steatosis noted on CT scan Continue to trend Avoid hepatotoxic meds Dark urine/questionable urinary retention - resolved this am Likely 2/2 to dehydration BUN/Cr 10/0.8 on admission Hx HTN C/w home meds Losartan, Amlodipine, Atenolol; HCTZ held 2/2 hypokalemia of 2.9; repeat BMP pending for 2 pm today Elevated likely 2/2 IVFs which have been d/c'd, continue to monitor DVT/GI ppx: SCDs/Protonix Pt seen, examined with, and plan discussed with Dr. Ortega, attending physician. Checo Olmos DO PGY-1, Grocery Cashier Pager #[phone] <Ly Ortega R - Last Filed: 07/06/18 17:48> Objective - Vital Signs/Intake and Output Vital Signs (last 24 hours): Temp Pulse Resp BP Pulse Ox 98 F 89 20 146/106 H 98 07/04/18 16:38 07/04/18 16:38 07/04/18 16:38 07/04/18 16:38 07/04/18 16:38 - Labs Labs: 07/04/18 05:44 07/04/18 13:20 PT 13.0 SECONDS (9.4-12.5) H 07/03/18 06:00 INR 1.13 07/03/18 06:00 APTT 28.6 Seconds (25.1-36.5) 07/03/18 06:00 Attending/Attestation - Attestation I have personally seen and examined this patient.: Yes I have fully participated in the care of the patient.: Yes I have reviewed all pertinent clinical information, including history, physical exam and plan: Yes Notes (Text): Patient seen and examined by me with resident at 10:50AM on 07/03/18. Case including HPI, physical exam, and assessment and plan discussed with resident. Agree with above with following additions/corrections. Patient is a 37-year-old male with past medical history significant for hypertension, alcohol abuse, pancreatitis that presents to the emergency room with epigastric pain and nausea. Patient states he is feeling a little better today. Patient had clear liquids this morning and felt a little nauseous. Still with some epigastric pain, no radiation of the pain. Sulma medications are helping. Pain comes and goes. No vomiting. No chest pain or shortness of breath. No headaches or dizziness. No fevers or chills. No dysuria. No diarrhea. Patient is having small bowel movements. Physical exam: General: Awake and alert lying in bed in no acute distress HEENT: Normocephalic, atraumatic. Extraocular muscles intact, pupils equal and reactive, no scleral icterus. Oropharynx is pink and moist. No pharyngeal erythema or exudate appreciated. Neck is supple. Cardiovascular: Regular rhythm. Normal S1 and S2. No murmurs, rubs, or gallops appreciated Pulmonary: Normal respiratory effort. No rhonchi, rales, or wheezing appreciated Gastrointestinal: Soft, Nondistended. Positive epigastric pain. Positive obese abdomen. Positive bowel sounds all 4 quadrants. No guarding. Musculoskeletal: Moves all extremities. No calf tenderness. No edema appreciated. No CVA tenderness. Vascular: 2+ peripheral pulses upper and lower extremities Central nervous system: AAOx 3, CN 2-12 grossly intact. 5 out of 5 muscle strength all extremities. Dermatologic: Skin warm and dry. Assessment and plan: 1. Acute pancreatitis secondary to alcohol abuse. Improving. Continue IV fluids. Placed on clear liquid diet, advance as tolerated. Continue pain management. CT abdomen pelvis per radiologist showed CT manifestations of acute pancreatitis limited to the distal body until, no evidence of necrotizing pancreatitis. 2. Hypokalemia. HCTZ held. Will replace potassium. Follow up repeat labs in AM. 3. Alcohol abuse. Continue CIWA protocol. Counseled on alcohol cessation. Cont inue thiamine, folic acid, multivitamin. 4. Transaminitis. Downtrending. Secondary to alcohol abuse. Also with hepatic steatosis on CT abdomen and pelvis. Patient advised diet and exercise. Counseled on alcohol cessation. Continue to monitor. 5. Difficulty urinating. Resolved. 6. Essential hypertension. Continue amlodipine and atenolol. HCTZ stopped secondary to hypokalemia. Cozaar increased. 7. GI/DVT prophylaxis. Protonix/SCDs 8. Patient is a full code Case was discussed in detail with the patient regarding current diagnosis and treatment plan. All questions answered.
[2018-07-03 15:54] LABS: BLOOD UREA NITROGEN 7 mg/dL (7-21); CALCIUM 9.2 mg/dL (8.4-10.5); GFR NON-AFRICAN AMERICAN > 60
[2018-07-03 17:16] VITALS: RESP 20
[2018-07-04] MEDS: Morphine 2 mg/ml ISec IVP PRN ×3 (02:10→10:09)
[2018-07-04 06:30] LABS: BASO # 0.04 K/mm3 (0.0-2.0); BASO % 0.6 % (0.0-3.0); EOS # 0.3 (0.0-0.7); GRAN # 3.99 (1.4-6.5); GRAN % 61.9 % (50.0-68.0); LYMPH # 1.4 (1.2-3.4); LYMPH % 22.2 % (22.0-35.0); MEAN CORPUSCULAR HGB CONC 34.1 g/dl (31.0-37.0); MEAN PLATELET VOLUME 9.9 fl (7.0-11.0); MONO # 0.7 (0.1-0.6); MONO % 11.3 % (1.0-6.0); RBC 3.33 10^6/uL (3.5-6.1); RED CELL DISTRIBUTION WIDTH 12.8 % (11.5-14.5); WHITE BLOOD COUNT 6.5 10^3/uL (4.5-11.0)
[2018-07-04 07:17] LABS: ALB/GLOB RATIO 1.1 (1.1-1.8); ALBUMIN 3.6 g/dL (3.0-4.8); ALT/SGPT 68 U/L (7-56); AST/SGOT 68 U/L (17-59); BLOOD UREA NITROGEN 6 mg/dL (7-21); CALCIUM 9.1 mg/dL (8.4-10.5); GFR NON-AFRICAN AMERICAN > 60
[2018-07-04] MEDS ORDERED: Potassium Chloride 20 mEq ER Tab PO STA (07:21)
[2018-07-04] MEDS ORDERED: Pantoprazole 40 mg EC Tab PO SCH (07:30)
[2018-07-04] MEDS: Multivitamin Therapeutic Tab PO SCH (08:02)
[2018-07-04] MEDS ORDERED: Morphine 2 mg/ml ISec IVP PRN (10:47)
[2018-07-04] MEDS ORDERED: Potassium Chloride 20 mEq ER Tab PO ONE (11:00)
[2018-07-04 13:45] LABS: BLOOD UREA NITROGEN 6 mg/dL (7-21); CALCIUM 9.9 mg/dL (8.4-10.5); GFR NON-AFRICAN AMERICAN > 60
--- NOTE | 2018-07-04 16:04 | CP.PCM.DIS ---
Provider - Provider Date of Admission: 07/02/18 13:47 Attending physician: Ly Ortega DO Primary care physician: PMD: Dr Yang Time Spent in preparation of Discharge (in minutes): 42 Diagnosis - Discharge Diagnosis (1) Pancreatitis, alcoholic, acute Status: Resolved Priority: High Hospital Course - Lab Results Lab Results: Micro Results 07/02/18 12:00 Urine Urine Culture - Final No Growth (<1,000 CFU/ML) Most Recent Lab Values WBC 6.5 10^3/uL (4.5-11.0) 07/04/18 05:44 RBC 3.33 10^6/uL (3.5-6.1) L 07/04/18 05:44 Hgb 10.0 g/dL (14.0-18.0) L 07/04/18 05:44 Hct 29.3 % (42.0-52.0) L 07/04/18 05:44 MCV 88.0 fl (80.0-105.0) 07/04/18 05:44 MCH 30.0 pg (25.0-35.0) 07/04/18 05:44 MCHC 34.1 g/dl (31.0-37.0) 07/04/18 05:44 RDW 12.8 % (11.5-14.5) 07/04/18 05:44 Plt Count 280 10^3/uL (120.0-450.0) 07/04/18 05:44 MPV 9.9 fl (7.0-11.0) 07/04/18 05:44 Gran % 61.9 % (50.0-68.0) 07/04/18 05:44 Lymph % (Auto) 22.2 % (22.0-35.0) 07/04/18 05:44 [place]unders % (Auto) 11.3 % (1.0-6.0) H 07/04/18 05:44 Eos % (Auto) 4.0 % (1.5-5.0) 07/04/18 05:44 Baso % (Auto) 0.6 % (0.0-3.0) 07/04/18 05:44 Gran # 3.99 (1.4-6.5) 07/04/18 05:44 Lymph # (Auto) 1.4 (1.2-3.4) 07/04/18 05:44 [place] # (Auto) 0.7 (0.1-0.6) H 07/04/18 05:44 Eos # (Auto) 0.3 (0.0-0.7) 07/04/18 05:44 Baso # (Auto) 0.04 K/mm3 (0.0-2.0) 07/04/18 05:44 PT 13.0 SECONDS (9.4-12.5) H 07/03/18 06:00 INR 1.13 07/03/18 06:00 APTT 28.6 Seconds (25.1-36.5) 07/03/18 06:00 Sodium 139 mmol/L (132-148) 07/04/18 13:20 Potassium 3.9 mmol/L (3.6-5.0) 07/04/18 13:20 Chloride 101 mmol/L (98-107) 07/04/18 13:20 Carbon Dioxide 31 mmol/L (21-33) 07/04/18 13:20 Anion Gap 11 (10-20) 07/04/18 13:20 BUN 6 mg/dL (7-21) L 07/04/18 13:20 Creatinine 0.8 mg/dl (0.8-1.5) 07/04/18 13:20 Est GFR ( Amer) > 60 07/04/18 13:20 Est GFR (Non-Af Amer) > 60 07/04/18 13:20 Random Glucose 136 mg/dL (70-110) H 07/04/18 13:20 Calcium 9.9 mg/dL (8.4-10.5) 07/04/18 13:20 Phosphorus 4.1 mg/dL (2.5-4.5) 07/03/18 06:00 Magnesium 1.9 mg/dL (1.7-2.2) 07/03/18 06:00 Total Bilirubin 1.3 mg/dL (0.2-1.3) 07/04/18 05:44 AST 68 U/L (17-59) H D 07/04/18 05:44 ALT 68 U/L (7-56) H 07/04/18 05:44 Alkaline Phosphatase 129 U/L (38-126) H 07/04/18 05:44 Total Protein 6.7 g/dL (5.8-8.3) 07/04/18 05:44 Albumin 3.6 g/dL (3.0-4.8) 07/04/18 05:44 Globulin 3.1 gm/dL 07/04/18 05:44 Albumin/Globulin Ratio 1.1 (1.1-1.8) 07/04/18 05:44 Lipase 1637 U/L (23-300) H 07/02/18 09:00 Urine Color Yellow (YELLOW) 07/02/18 12:00 Urine Appearance Clear (CLEAR) 07/02/18 12:00 Urine pH 6.5 (4.7-8.0) 07/02/18 12:00 Ur Specific [place] 1.015 (1.005-1.035) 07/02/18 12:00 Urine Protein Negative mg/dL (<30 mg/dL) 07/02/18 12:00 Urine Glucose (UA) Negative mg/dL (NEGATIVE) 07/02/18 12:00 Urine Ketones Negative mg/dL (NEGATIVE) 07/02/18 12:00 Urine Blood Negative (NEGATIVE) 07/02/18 12:00 Urine Nitrate Negative (NEGATIVE) 07/02/18 12:00 Urine Bilirubin Negative (NEGATIVE) 07/02/18 12:00 Urine Urobilinogen 1.0 E.U./dL (<1 E.U./dL) H 07/02/18 12:00 Ur Leukocyte Esterase Negative Benigno/uL (NEGATIVE) 07/02/18 12:00 Urine Opiates Screen Negative (NEGATIVE) 07/02/18 12:00 Urine Methadone Screen Negative (NEGATIVE) 07/02/18 12:00 Ur Barbiturates Screen Negative (NEGATIVE) 07/02/18 12:00 Ur Phencyclidine Scrn Negative (NEGATIVE) 07/02/18 12:00 Ur Amphetamines Screen Negative (NEGATIVE) 07/02/18 12:00 U Benzodiazepines Scrn Negative (NEGATIVE) 07/02/18 12:00 U Oth Cocaine Metabols Negative (NEGATIVE) 07/02/18 12:00 U Cannabinoids Screen Negative (NEGATIVE) 07/02/18 12:00 - Hospital Course Hospital Course: This is a 37 y o male with PMhx HTN, acute pancreatitis treated in August 2017, who presented to the ED c/o 1 day history of severe epigastric pain radiating to back, nausea, and anorexia. States that he binge drinks 5 shots of cognac every other day, last had EtOH use on 2 days ago. Has been binge drinking for the past 6-8 mos after being laid off from his job. States he woke up yesterday am with generalized abdominal discomfort, gas pain, and bloating. Tried Tylenol and Advil for symptoms without relief. Admits to associated nausea. Denies vomiting. Reports he was sick with stomach virus last week and only had symptoms of watery diarrhea x 4 days, but that has since resolved. Last ate 2 days ago. Tried to drink small sips of water at home when symptoms started but was unable to tolerate due to worsening nausea. Admits to associated constipation, last BM was 1-2 days ago. Denies headache, dizziness, fever, chills, chest pain, sob. Reports urine was dark this am as well. 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 Yang [facility] COURSE: Mr Ward was treated for acute pancreatitis and alcohol withdrawal. His lipase was 1637. A CT abd/pelvis performed showed "acute pancreatitis limited to distal body and tail; hepatic steatosis". He was treated with lactated ringers for hydration, his pain was controlled with morphine and his alcohol withdrawal symptoms were controlled with ativan. He was initially made NPO then advanced to clear liquid diet then a solid food heart healthy diet. His LFTs were elevated and downtrended each day. He was hypokalemic with an initial potassium of 2.9. H is potassium was repleted and his home medication of hydrochlorothiazide was stopped. By discharge his potassium level was normal. He was also hypertensive on this admission - given we stopped his HCTZ, we doubled his losartan dose from 50mg po qd to 100mg po qd (he was given a script for this new dose). He was told to resume home medications with the exception of HCTZ and follow-up with his primary medical doctor. Alcohol cessation was advocated. Discharge Exam - Head Exam Head Exam: ATRAUMATIC, NORMOCEPHALIC - Eye Exam Eye Exam: EOMI, Normal appearance, PERRL - ENT Exam ENT Exam: Mucous Membranes Moist - Neck Exam Neck exam: Full Rom, Normal Inspection - Respiratory Exam Respiratory Exam: Clear to PA & Lateral, NORMAL BREATHING PATTERN, UNREMARKABLE. absent: Rales, Rhonchi, Wheezes - Cardiovascular Exam Cardiovascular Exam: REGULAR RHYTHM, +S1, +S2. absent: Tachycardia - GI/Abdominal Exam GI & Abdominal Exam: Normal Bowel Sounds, Unremarkable. absent: Distended, Firm, Guarding, Hernia, Tenderness - Extremities Exam Extremities exam: full ROM, normal capillary refill, pedal pulses present - Neurological Exam Neurological exam: Alert, Oriented x3 - Psychiatric Exam Psychiatric exam: Normal Affect, Normal Mood - Skin Skin Exam: Dry, Intact, Normal Color, Warm Discharge Plan - Discharge Medications Prescriptions: Losartan [Cozaar] 100 mg PO DAILY #30 tab - Follow Up Plan Condition: STABLE Disposition: HOME/ ROUTINE Instructions: Pancreatitis, High Blood Pressure in Adults, Hypokalemia, Alcohol Poisoning Additional Instructions: Please follow-up with your Primary Medical Doctor, Dr Yang, within 3-5 days. Your blood pressure has been elevated and your medications have been adjusted. You will need your blood pressure re-checked within 3 days with your primary care doctor, your medications may need to be adjusted. Please continue the following medications: 1. Amlodipine (norvasc) 10mg 1 tablet at 10AM 2. Atenolol 100mg 1 tablet at 10AM 3. Losartan 100mg 1 tablet at 2PM 4. Omeprazole 20mg 1 tablet before breakfast Please note that your Losartan dose has been changed from 50mg -> 100mg. A script will be given to you for your new Losartan dose. Please STOP taking hydrochlorothiazide (HCTZ) as this can lower your blood potassium level. Please cease excessive alcohol consumption. Alcohol can seriously harm your pancreas. If symptoms return, please go to your nearest emergency department. Referrals: Eulalia Yang MD [Family Provider] -
[2018-07-04 16:39] VITALS: BP 146/106; PULSE 89; TEMP 98; O2SAT 98
== END 2018-07-04 17:14 | disposition home or self-care (01) ==
LOC: ED 08:27 → ERH 13:47 → 3RNO 18:10
PROVIDERS: ADMIT Hospitalist; ATTEND Hospitalist
DX: K85.20 Alcohol induced acute pancreatitis without necrosis or infection (principal); K76.0 Fatty (change of) liver, not elsewhere classified; F10.239 Alcohol dependence with withdrawal, unspecified; E87.6 Hypokalemia; I10 Essential (primary) hypertension; K21.9 Gastro-esophageal reflux disease without esophagitis; Z79.899 Other long term (current) drug therapy; Z82.49 Family history of ischemic heart disease and other diseases of the circulatory system; Z83.3 Family history of diabetes mellitus; Z90.49 Acquired absence of other specified parts of digestive tract; Z98.84 Bariatric surgery status; K59.00 Constipation, unspecified; E86.0 Dehydration
CPT/HCPCS: 36415; 74177; 80053; 80324; 80345; 80346; 80349; 80353; 80358; 80361; 81003; 83690; 83735; 83992; 84100; 85025; 85610; 85730; 87086; 93005; 96361; 96374; 96375; 96376; 99284; C9113; G0378; J1885; J2060; J2270; J2405; J2765; J3480; J7030; J7120; Q9967

== ENCOUNTER 2018-07-17 17:09 | Inpatient (IN) | payer MEDICAID ==
--- NOTE | 2018-07-17 18:14 | ED PDOC ---
Arrival/HPI - General Chief Complaint: Chest Pain Time Seen by Provider: 07/17/18 17:49 Historian: Patient - History of Present Illness Narrative History of Present Illness (Text): 07/17/18 18:00 37 year old male, whose past medical history includes hypertension on Atenolol, Amlodopine, and Losartan, nkda, who presents to the Emergency department complaining of sharp left-sided chest pain that radiated to the central and right side of chest, and to epigastric area since waking up this morning. Patient states pain worsens with breathing. Pt notes some coughing, nausea, and loose diarrhea (4-5 times today). Patient denies any vomiting, changes in diet, or any other complaints. Patient states he quit smoking 15 years ago. Time/Duration: Other (pt notes onset as this morning) Symptom Onset: Sudden Symptom Course: Unchanged Activities at Onset: Light Past Medical History - Infectious Disease Hx of Infectious Diseases: None - Cardiac Hx Cardiac Disorders: Yes Hx Hypertension: Yes - Pulmonary Hx Respiratory Disorders: No - Neurological Hx Neurological Disorder: Yes (near syncope) - HEENT Hx HEENT Disorder: No - Renal Hx Renal Disorder: No - Endocrine/Metabolic Hx Endocrine Disorders: No - Hematological/Oncological Hx Blood Disorders: No - Integumentary Hx Dermatological Disorder: No - Musculoskeletal/Rheumatological Hx Musculoskeletal Disorders: No Hx Falls: No - Gastrointestinal Hx Gastrointestinal Disorders: Yes (obese) Hx Gastroesophageal Reflux: Yes Hx Pancreatitis: Yes Other/Comment: gastric bypass sx about 10 yrs ago with 150 lb weight loss, had a stomach virus last week watery diarrhea x 4 days has resolved - Genitourinary/Gynecological Hx Genitourinary Disorders: No - Psychiatric Hx Psychophysiologic Disorder: Yes Hx Depression: Yes Hx Substance Use: No Other/Comment: has been binge drinking robert other day since getting laid off from job about 6-8 months ago, drinks 6-7 shots of cognac last drink new years narcisa 2 days ago - Surgical History Hx Appendectomy: Yes Hx Cholecystectomy: Yes Hx Gastric Bypass Surgery: Yes (about 10 yrs ago) - Anesthesia Hx Anesthesia: Yes Family/Social History Family/Social History: Hypertension Smoking Status: Never Smoked Hx Alcohol Use: Yes Frequency of alcohol use: Socially Hx Substance Use: No Allergies/Home Meds Allergies/Adverse Reactions: Allergies ramipril Adverse Reaction (Verified 07/17/18 17:48) ANGIOEDEMA Home Medications: Home Meds Medication Instructions Recorded Confirmed Omeprazole 20 mg PO DAILY 07/04/18 07/17/18 Review of Systems - Physician Review All systems were reviewed & negative as marked: Yes - Review of Systems Respiratory: Cough. absent: Normal Cardiovascular: Chest Pain (Pt notes left-sided chest pain that radiated to central and right side of chest ). absent: Normal Gastrointestinal: Abdominal Pain (pt noted upper abdominal pain, near chest), Diarrhea (pt notes loose diarrhea (4-5 times) ), Nausea. absent: Normal Physical Exam Blood Pressure: Hypertensive Medical Decision Making ED Course and Treatment: 07/17/18 18:00 Impression: 37 year old male presents to the Emergency department for sharp left-sided chest pain that radiated to the central and right side of chest, and to epigastric area since waking up this morning. Plan: -- EKG -- Labs -- X-Ray of chest -- Pepcid -- IV fluids -- Zofran Inj -- Urinalysis -- Reassess and disposition Prior Visits: Notes and results from previous visits were reviewed. Patient was last seen in the emergency department on 07/02/18 with 24hrs of severe epigastric pain and nausea. pt was hospitalized in stable condition. Progress Notes: 07/17/18 17:55 Upon reevaluation, pt was still having abdominal pain, mostly epigastric region. Patient says pain is going to the back. My plan is to add Lipase and I will do a CTA of chest and abdomen and pelvis. - RAD Interpretation Radiology Orders: 07/17/18 18:06 CHEST PORTABLE [RAD] Stat - EKG Interpretation EKG Interpretation (Text): EKG: Ordered, reviewed, and independently interpreted the EKG. Rate : 100 BPM Rhythm : NSR Interpretation : Left axis deviation. Interpreted by ED Physician: Yes Type: 12 lead EKG - Medication Orders Current Medication Orders: Sodium Chloride (Sodium Chloride 0.9%) 1,000 mls @ 250 mls/hr IV .Q4H STA Stop: 07/17/18 22:07 Discontinued Medications Famotidine (Pepcid) 20 mg IVP STAT STA Stop: 07/17/18 18:09 Ondansetron HCl (Zofran Inj) 4 mg IVP STAT STA Stop: 07/17/18 18:09 - Scribe Statement The provider has reviewed the documentation as recorded by the Negritaiblondon Lugo All medical record entries made by the Stephanie were at my direction and personally dictated by me. I have reviewed the chart and agree that the record accurately reflects my personal performance of the history, physical exam, medical decision making, and the department course for this patient. I have also personally directed, reviewed, and agree with the discharge instructions and disposition. Disposition/Present on Arrival - Present on Arrival Any Indicators Present on Arrival: No History of DVT/PE: No History of Uncontrolled Diabetes: No Urinary Catheter: No History of Decub. Ulcer: No History Surgical Site Infection Following: None - Disposition Have Diagnosis and Disposition been Completed?: Yes Diagnosis: Pancreatitis, Enteritis Disposition: HOSPITALIZED Disposition Time: 21:00 Condition: FAIR
[2018-07-17 18:38] LABS: BASO # 0.03 K/mm3 (0.0-2.0); BASO % 0.6 % (0.0-3.0); EOS % 0.8 % (1.5-5.0); GRAN # 3.22 (1.4-6.5); GRAN % 67.3 % (50.0-68.0); HEMOGLOBIN 13.2 g/dL (14.0-18.0); LYMPH # 1.2 (1.2-3.4); LYMPH % 25.9 % (22.0-35.0); MEAN CELL VOLUME 84.4 fl (80.0-105.0); MEAN CORPUSCULAR HEMOGLOBIN 29.8 pg (25.0-35.0); MEAN CORPUSCULAR HGB CONC 35.3 g/dl (31.0-37.0); MEAN PLATELET VOLUME 9.1 fl (7.0-11.0); MONO # 0.3 (0.1-0.6); MONO % 5.4 % (1.0-6.0); RBC 4.43 10^6/uL (3.5-6.1); RED CELL DISTRIBUTION WIDTH 13.3 % (11.5-14.5); WHITE BLOOD COUNT 4.8 10^3/uL (4.5-11.0)
[2018-07-17] MEDS: Sodium Chloride 0.9% 1,000 ML IV STA ×2 (18:48→18:59)
[2018-07-17 19:09] LABS: ALB/GLOB RATIO 1.2 (1.1-1.8); ALBUMIN 4.7 g/dL (3.0-4.8); ALT/SGPT 96 U/L (7-56); AST/SGOT 167 U/L (17-59); BLOOD UREA NITROGEN 11 mg/dL (7-21); GFR NON-AFRICAN AMERICAN > 60
[2018-07-17 19:18] LABS: TROPONIN I < 0.01 ng/mL
[2018-07-17 19:56] LABS: URINE BILIRUBIN NEGATIVE (NEGATIVE); URINE BLOOD NEGATIVE (NEGATIVE); URINE GLUCOSE (UA) NEGATIVE (NEGATIVE); URINE LEUKOCYTE ESTERASE NEGATIVE Leu/uL (NEGATIVE); URINE PROTEIN TRACE mg/dL (<30 mg/dL); URINE UROBILINOGEN 0.2 E.U./dL (<1 E.U./dL)
[2018-07-17 19:57] LABS: URINE APPEARANCE CLEAR (CLEAR); URINE COLOR DARK YELLOW (YELLOW)
[2018-07-17 20:02] LABS: URINE WBC 0 - 2 /hpf (0-6)
[2018-07-17] MEDS ORDERED: Morphine 4 mg/ml ISec IVP STA (20:40)
--- NOTE | 2018-07-17 20:57 | CP.PCM.HP ---
History of Present Illness - History of Present Illness History of Present Illness: PGY-1 H&P for Dr. Greene CC: Epigastric pain HPI: Patient is a 37 year old male with past medical history of HTN and acute pancreatitis last treated in 07/04/2018, who presented with epigastric pain that started this morning. Patient describes the pain to be constant, burning and stabbing, radiates to the upper right and left chest marino, and 10/10 in severity. Patient states that he took 6 Tylenol pills and 2 Aleve pills without relief. He states that taking a deep breath worsens the pain. Patient was recently discharged on 07/04/2018 for acute pancreatitis. He admits to drinking several shots of Sera every other day and his last drink was the night before his symptoms started. Patient also complains of associated nausea and 5 episodes of loose diarrhea today. Patient states he has chronic diarrhea and describes his stool to be loose, fatty, and malodorous. Patient denies headache, dizziness, fever, chills, chest pain, SOB, or urinary symptoms. 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 Yang Present on Admission - Present on Admission Any Indicators Present on Admission: No History of DVT/PE: No History of Uncontrolled Diabetes: No Urinary Catheter: No Decubitus Ulcer Present: No Review of Systems - Review of Systems All systems: reviewed and no additional remarkable complaints except Past Patient History - Infectious Disease Hx of Infectious Diseases: None - Past Medical History & Family History Past Medical History?: Yes - Past Social History Smoking Status: Never Smoked - CARDIAC Hx Cardiac Disorders: Yes Hx Hypertension: Yes - PULMONARY Hx Respiratory Disorders: No - NEUROLOGICAL Hx Neurological Disorder: Yes (near syncope) - HEENT Hx HEENT Problems: No - RENAL Hx Chronic Kidney Disease: No - ENDOCRINE/METABOLIC Hx Endocrine Disorders: No - HEMATOLOGICAL/ONCOLOGICAL Hx Blood Disorders: No - INTEGUMENTARY Hx Dermatological Problems: No - MUSCULOSKELETAL/RHEUMATOLOGICAL Hx Musculoskeletal Disorders: No Hx Falls: No - GASTROINTESTINAL Hx Gastrointestinal Disorders: Yes (obese) Hx Gastroesophageal Reflux: Yes Hx Pancreatitis: Yes Other/Comment: gastric bypass sx about 10 yrs ago with 150 lb weight loss, had a stomach virus last week watery diarrhea x 4 days has resolved - GENITOURINARY/GYNECOLOGICAL Hx Genitourinary Disorders: No - PSYCHIATRIC Hx Psychophysiologic Disorder: Yes Hx Depression: Yes Hx Substance Use: No Other/Comment: has been binge drinking robert other day since getting laid off from job about 6-8 months ago, drinks 6-7 shots of cognac last drink new years narcisa 2 days ago - SURGICAL HISTORY Hx Appendectomy: Yes Hx Cholecystectomy: Yes Hx Gastric Bypass Surgery: Yes (about 10 yrs ago) - ANESTHESIA Hx Anesthesia: Yes Meds Allergies/Adverse Reactions: Allergies Allergy/AdvReac Type Severity Reaction Status Date / Time ramipril AdvReac ANGIOEDEMA Verified 07/17/18 17:48 Physical Exam - Constitutional Appears: Well, Non-toxic, No Acute Distress Additional comments: appears uncomfortable - Head Exam Head Exam: ATRAUMATIC, NORMOCEPHALIC - Eye Exam Eye Exam: EOMI, Normal appearance. absent: Scleral icterus - ENT Exam ENT Exam: Mucous Membranes Dry - Respiratory Exam Respiratory Exam: Clear to Auscultation Bilateral. absent: Accessory Muscle Use, Rales, Rhonchi, Wheezes, Respiratory Distress - Cardiovascular Exam Cardiovascular Exam: Tachycardia, +S1, +S2. absent: Gallop, Rubs, Systolic Murmur - GI/Abdominal Exam GI & Abdominal Exam: Guarding, Normal Bowel Sounds, Soft, Tenderness. absent: Distended Additional comments: Epigastric region very tender to palpation. Patient is obese. - Extremities Exam Extremities exam: Positive for: normal inspection. Negative for: calf tenderness - Back Exam Back exam: NORMAL INSPECTION. absent: CVA tenderness (L), CVA tenderness (R) - Neurological Exam Neurological exam: Alert, CN II-XII Intact, Oriented x3 - Psychiatric Exam Psychiatric exam: Normal Affect, Normal Mood - Skin Skin Exam: Dry, Intact, Normal Color, Warm Results - Vital Signs Recent Vital Signs: Last Vital Signs Temp 98.5 F 07/17/18 19:30 Pulse 110 H 07/17/18 19:58 Resp 15 07/17/18 19:30 BP 152/114 H 07/17/18 19:58 Pulse Ox 100 07/17/18 19:30 - Labs Result Diagrams: 07/17/18 18:31 07/17/18 18:31 Labs: Laboratory Results - last 24 hr 07/17/18 07/17/18 07/17/18 18:00 18:31 18:31 WBC 4.8 D RBC 4.43 Hgb 13.2 L D Hct 37.4 L MCV 84.4 D MCH 29.8 MCHC 35.3 RDW 13.3 Plt Count 316 MPV 9.1 Gran % 67.3 Lymph % (Auto) 25.9 [place] % (Auto) 5.4 Eos % (Auto) 0.8 L Baso % (Auto) 0.6 Gran # 3.22 Lymph # (Auto) 1.2 [place] # (Auto) 0.3 Eos # (Auto) 0.0 Baso # (Auto) 0.03 Sodium 139 Potassium 4.1 Chloride 101 Carbon Dioxide 26 Anion Gap 15 BUN 11 Creatinine 0.8 Est GFR ( Amer) > 60 Est GFR (Non-Af Amer) > 60 Random Glucose 113 H Calcium 10.0 Total Bilirubin 1.4 H AST 167 H D ALT 96 H Alkaline Phosphatase 196 H D Lactate Dehydrogenase 810 H Total Creatine Kinase 96 Troponin I < 0.01 D Total Protein 8.6 H Albumin 4.7 Globulin 3.9 Albumin/Globulin Ratio 1.2 Lipase 2242 H Urine Color Urine Appearance Urine pH Ur Specific [place] Urine Protein Urine Glucose (UA) Urine Ketones Urine Blood Urine Nitrate Urine Bilirubin Urine Urobilinogen Ur Leukocyte Esterase Urine RBC Urine WBC Ur Epithelial Cells 07/17/18 19:47 WBC RBC Hgb Hct MCV MCH MCHC RDW Plt Count MPV Gran % Lymph % (Auto) [place] % (Auto) Eos % (Auto) Baso % (Auto) Gran # Lymph # (Auto) [place] # (Auto) Eos # (Auto) Baso # (Auto) Sodium Potassium Chloride Carbon Dioxide Anion Gap BUN Creatinine Est GFR ( Amer) Est GFR (Non-Af Amer) Random Glucose Calcium Total Bilirubin AST ALT Alkaline Phosphatase Lactate Dehydrogenase Total Creatine Kinase Troponin I Total Protein Albumin Globulin Albumin/Globulin Ratio Lipase Urine Color Dark yellow Urine Appearance Clear Urine pH 6.0 Ur Specific [place] >= 1.030 Urine Protein Trace H Urine Glucose (UA) Negative Urine Ketones Negative Urine Blood Negative Urine Nitrate Negative Urine Bilirubin Negative Urine Urobilinogen 0.2 Ur Leukocyte Esterase Negative Urine RBC None Urine WBC 0 - 2 Ur Epithelial Cells 1 - 3 Assessment & Plan - Assessment and Plan (Free Text) Assessment: Patient is a 37 year old male with past medical history of HTN and acute pancreatitis last treated in 07/04/2018, who presented with epigastric pain that started this morning. Plan: Abdominal pain 2/2 acute pancreatitis - CT chest, abdomen, and pelvis: Pancreatic stranding is present consistent with acute pancreatitis. No evidence of pseudocyst or necrosis. No evidence of pancreatic mass. No pancreatic ductal dilation. (Pending official read) - Keep patient NPO - GI consulted, Dr. Mckeon - Morphine 1mg IV Q3 - Zofran 4mg IV Q6 PRN - Lipase: 2243 - Triglycerides: 602 - LDH: 810 - IVF given in ED - Banana bag - BISAP score: 0 - Home medications reviewed, no medications that cause drug-induce pancreatitis Alcohol abuse, watch for alcohol withdrawal symptoms - [facility] protocol - Ativan 1mg IV Q4 PRN - Banana bag - Alcohol level <10 Alcoholic hepatitis - AST/ALT: 167/96 - Alk phos: 196 - [place] score: 10.6- corticosteroids not indicated - Acetaminophen level: <10 HTN - Continue home meds - Amlodipine 10mg PO QD - Losartan 100mg PO QD - Atenolol 100mg PO QD Hx of depression: - Hold home Zoloft as SSRI's may cause acute pancreatitis Prophylaxis: - DVT: SCD's - GI: Protonix 40mg IV QD Case discussed with Dr. Jc Chow
[2018-07-17 21:27] LABS: HDL CHOLESTEROL 81 mg/dL (29-60)
[2018-07-17 21:28] LABS: INR 1.13; PARTIAL THROMBOPLASTIN TIME 27.9 Seconds (25.1-36.5); PROTHROMBIN TIME 12.9 SECONDS (9.4-12.5)
[2018-07-17 21:37] LABS: LDL CHOLESTEROL 58 mg/dL (0-129)
[2018-07-17] MEDS ORDERED: Multivitamin (MVI) 10 ML, Thiamine 100 MG, Folic Acid 1 MG in Sodium Chloride 0.9% 1,00... IV ONE (21:38)
[2018-07-17] MEDS: Morphine 2 mg/ml ISec IVP PRN (22:13)
[2018-07-18 02:03] VITALS: BMI 35.3
[2018-07-18] MEDS ORDERED: Pneumococcal 23-Valent Vaccine IM ONE (02:03)
[2018-07-18] MEDS ORDERED: Influenza Vaccine 60 mcg/0.5 mL SYR (4YR UP) IM ONE (02:03)
[2018-07-18] MEDS: Morphine 2 mg/ml ISec IVP PRN ×3 (04:03→22:37)
[2018-07-18] MEDS: Multivitamin (MVI) 10 ML, Thiamine 100 MG, Folic Acid 1 MG in Sodium Chloride 0.9% 1,00... IV SCH (05:36)
[2018-07-18 06:53] LABS: BASO # 0.02 K/mm3 (0.0-2.0); BASO % 0.4 % (0.0-3.0); EOS % 0.6 % (1.5-5.0); GRAN # 3.82 (1.4-6.5); GRAN % 73.6 % (50.0-68.0); HEMOGLOBIN 11.6 g/dL (14.0-18.0); LYMPH # 1.1 (1.2-3.4); LYMPH % 20.2 % (22.0-35.0); MEAN CELL VOLUME 87.1 fl (80.0-105.0); MEAN CORPUSCULAR HEMOGLOBIN 29.4 pg (25.0-35.0); MEAN CORPUSCULAR HGB CONC 33.7 g/dl (31.0-37.0); MEAN PLATELET VOLUME 10.3 fl (7.0-11.0); MONO # 0.3 (0.1-0.6); MONO % 5.2 % (1.0-6.0); RBC 3.95 10^6/uL (3.5-6.1); RED CELL DISTRIBUTION WIDTH 13.3 % (11.5-14.5); WHITE BLOOD COUNT 5.2 10^3/uL (4.5-11.0)
[2018-07-18 07:44] LABS: ALB/GLOB RATIO 1.2 (1.1-1.8); ALBUMIN 4.2 g/dL (3.0-4.8); ALT/SGPT 151 U/L (7-56); AST/SGOT 557 U/L (17-59); BLOOD UREA NITROGEN 10 mg/dL (7-21); CALCIUM 9.4 mg/dL (8.4-10.5); GFR NON-AFRICAN AMERICAN > 60
[2018-07-18] MEDS ORDERED: Potassium Chloride 40 mEq/30 ml LIQ UD PO STA (08:10)
--- NOTE | 2018-07-18 09:03 | CARD ---
APPROVED REPORT Date of service: 07/17/2018 EKG Measurement Heart [id number] <Conclusion> Normal sinus rhythm Voltage criteria for left ventricular hypertrophy ST & T wave abnormality, consider lateral ischemia Prolonged QT Abnormal ECG
--- NOTE | 2018-07-18 09:55 | RAD ---
Date of service: 07/17/2018 HISTORY: r/o infiltrate COMPARISON: 12/06/2017 FINDINGS: LUNGS: No active pulmonary disease. PLEURA: No significant pleural effusion identified, no pneumothorax apparent. CARDIOVASCULAR: No aortic atherosclerotic calcification present. Normal cardiac size. No pulmonary vascular congestion. OSSEOUS STRUCTURES: No significant abnormalities. VISUALIZED UPPER ABDOMEN: Normal. OTHER FINDINGS: None. IMPRESSION: No active disease.
--- NOTE | 2018-07-18 13:02 | CT ---
PROCEDURE: CT Angiography Chest, Abdomen and Pelvis with and without intravenous contrast HISTORY: r/o disection COMPARISON: None. TECHNIQUE: Contiguous axial images of the chest, abdomen and pelvis were obtained in the phase of aortic enhancement. A noncontrast enhanced CT of the chest was also obtained to evaluate for possible intramural thrombus. Coronal and sagittal reformats were generated. IV dose administered: 150 cc of Omni 350 Radiation dose: Total exam DLP = 1861.75 mGy-cm. This CT exam was performed using one or more of the following dose reduction techniques: Automated exposure control, adjustment of the mA and/or kV according to patient size, and/or use of iterative reconstruction technique. FINDINGS: CT ANGIOGRAPHY OF THE CHEST WITH & WITHOUT CONTRAST: AORTA (CHEST AND ABDOMEN): The thoracic and abdominal aorta are unremarkable, without aneurysm, dissection or rupture. No intramural thrombus identified in the thoracic aorta on the non-contrast ct of the chest. The celiac axis, superior mesenteric artery, inferior mesenteric artery and the renal arteries are widely patent. The pelvic arteries are unremarkable. The pulmonary arteries are unremarkable with no embolus. LUNGS: Clear. No nodule, mass or consolidation. MEDIASTINUM: Unremarkable. Normal caliber aorta and pulmonary arterial trunk. No aortic dissection. Normal size heart. LYMPH NODES: Unremarkable. PLEURA: Unremarkable. No pneumothorax. No pleural fluid. BONES: Unremarkable. OTHER FINDINGS: None. CT ANGIOGRAPHY OF THE ABDOMEN AND PELVIS WITH CONTRAST: LIVER: Unremarkable. No gross lesion or ductal dilatation. Severe fatty infiltration and hepatomegaly. The liver measures 28 cm transversely. GALLBLADDER AND BILE DUCTS: Gallbladder removed PANCREAS: There is a moderate amount of edema surrounding the pancreas consistent with acute pancreatitis SPLEEN: Unremarkable. ADRENALS: Unremarkable. No mass. KIDNEYS AND URETERS: Unremarkable. No hydronephrosis. No solid mass. VASCULATURE: Unremarkable. No aortic aneurysm. No aortic atherosclerotic calcification or mural plaque present. STOMACH AND BOWEL: Unremarkable. No obstruction. No gross mural thickening. APPENDIX: Normal appendix. PERITONEUM: Unremarkable. No free fluid. No free air. LYMPH NODES: Unremarkable. No enlarged lymph nodes. BLADDER: Unremarkable. REPRODUCTIVE: Unremarkable. BONES: No acute fracture. OTHER FINDINGS: The report concurs with the preliminary [facility] report IMPRESSION: Acute pancreatitis. Severe fatty infiltration of the liver. No evidence of aortic dissection or pulmonary embolus
--- NOTE | 2018-07-18 13:05 | CP.PCM.PN ---
<Ryne Franks - Last Filed: 07/18/18 13:01> Subjective - Date & Time of Evaluation Date of Evaluation: 07/18/18 Time of Evaluation: 07:00 - Subjective Subjective: Pt seen and examined this morning at bedside. Pt reports abdominal stabbing abdominal pain which is well controlled with toradol. Objective - Vital Signs/Intake and Output Vital Signs (last 24 hours): Temp Pulse Resp BP Pulse Ox 98.4 F 97 H 20 146/94 H 100 07/18/18 06:00 07/18/18 10:48 07/18/18 06:00 07/18/18 10:48 07/18/18 06:00 - Medications Medications: Current Medications Amlodipine Besylate (Norvasc) 10 mg PO DAILY [facility] Last Admin: 07/18/18 08:46 Dose: 10 mg Atenolol (Tenormin) 100 mg PO DAILY [facility] Last Admin: 07/18/18 10:48 Dose: 100 mg Multivitamins/Vitamin C 10 ml/Thiamine HCl 100 mg/ Folic Acid 1 mg/ Sodium Chloride 1,011.2 mls @ 150 mls/hr IV .Q6H45M [facility] Stop: 07/18/18 17:51 Last Admin: 07/18/18 05:36 Dose: 150 mls/hr Ketorolac Tromethamine (Toradol) 15 mg IM Q6 PRN PRN Reason: Pain, severe (8-10) Last Admin: 07/18/18 12:24 Dose: 15 mg Lorazepam (Ativan) 1 mg IVP Q4 PRN; Protocol PRN Reason: Symptoms of alcohol withdrawl Last Admin: 07/18/18 05:34 Dose: 1 mg Losartan Potassium (Cozaar) 100 mg PO DAILY [facility] Last Admin: 07/18/18 10:48 Dose: 100 mg Ondansetron HCl (Zofran Inj) 4 mg IVP Q6H PRN PRN Reason: Nausea/Vomiting Pantoprazole Sodium (Protonix Inj) 40 mg IVP DAILY [facility] Last Admin: 07/18/18 08:47 Dose: 40 mg - Labs Labs: 07/18/18 06:20 07/18/18 06:20 PT 12.9 SECONDS (9.4-12.5) H 07/17/18 18:40 INR 1.13 07/17/18 18:40 APTT 27.9 Seconds (25.1-36.5) 07/17/18 18:40 - Constitutional Appears: No Acute Distress - Head Exam Head Exam: ATRAUMATIC, NORMOCEPHALIC - Eye Exam Eye Exam: EOMI - ENT Exam ENT Exam: Mucous Membranes Moist - Neck Exam Neck Exam: Full ROM - Respiratory Exam Respiratory Exam: Clear to Ausculation Bilateral, NORMAL BREATHING PATTERN. absent: Wheezes, Respiratory Distress - Cardiovascular Exam Cardiovascular Exam: +S1, +S2. absent: Diastolic murmur, Murmur - GI/Abdominal Exam GI & Abdominal Exam: Soft, Tenderness, Normal Bowel Sounds - Extremities Exam Extremities Exam: Full ROM. absent: Calf Tenderness, Pedal Edema - Neurological Exam Neurological Exam: Alert, Awake, Oriented x3 - Psychiatric Exam Psychiatric exam: Normal Affect, Normal Mood - Skin Skin Exam: Dry, Intact, Warm Assessment and Plan - Assessment and Plan (Free Text) Assessment: Pt is a 37 yo male with PMH of HTN and acute pancreatitis last treated in 07/04/2018, who presented with epigastric pain which was later found to be acute pancreatitis. Plan: Acute pancreatitis - NPO, NS@150 - Zofran PRN - Lipase: 2243, Tri - CT chest, abdomen, and pelvis: acute pancreatitis , severe fatty infiltrate of the liver, no evidence of aortic dissection or pulmonary embolus - GI consulted, Dr. Mckeon Alcohol abuse - no signs of withdrawal at this time - continue with [facility] protocol - Ativan 1mg IV Q4 PRN Alcoholic hepatitis - AST 557 - ALT 151 - Alk phos 179 - encouraged cessation HTN - Losartan, Atenolol, Amlodipine Ppx - SCD - Protonix Pt seen, examined, assessment and plan discussed with Dr Ly Franks PGY1 <Ly Ortega R - Last Filed: 07/19/18 14:17> Objective - Vital Signs/Intake and Output Vital Signs (last 24 hours): Temp Pulse Resp BP Pulse Ox 99.0 F 97 H 18 143/101 H 98 07/19/18 06:00 07/19/18 06:00 07/19/18 06:00 07/19/18 10:52 07/19/18 06:00 - Medications Medications: Current Medications Amlodipine Besylate (Norvasc) 10 mg PO DAILY [facility] Last Admin: 07/19/18 10:52 Dose: 10 mg Atenolol (Tenormin) 100 mg PO HS [facility] Gemfibrozil (Lopid) 600 mg PO BID [facility] Hydralazine HCl (Apresoline) 25 mg PO DAILY [facility] Lactated Ringer's (Lactated Ringer's) 1,000 mls @ 150 mls/hr IV .Q6H40M [facility] Last Admin: 07/19/18 10:58 Dose: 150 mls/hr Lorazepam (Ativan) 1 mg IVP Q4 PRN; Protocol PRN Reason: Symptoms of alcohol withdrawl Last Admin: 07/18/18 23:53 Dose: 1 mg Losartan Potassium (Cozaar) 100 mg PO DAILY [facility] Last Admin: 07/19/18 10:51 Dose: 100 mg Morphine Sulfate (Morphine) 1 mg IVP Q6H PRN PRN Reason: Pain, severe (8-10) Ondansetron HCl (Zofran Inj) 4 mg IVP Q6H PRN PRN Reason: Nausea/Vomiting Last Admin: 07/18/18 16:01 Dose: 4 mg Pantoprazole Sodium (Protonix Inj) 40 mg IVP DAILY [facility] Last Admin: 07/19/18 10:53 Dose: 40 mg - Labs Labs: 07/19/18 05:00 07/19/18 05:00 PT 12.9 SECONDS (9.4-12.5) H 07/17/18 18:40 INR 1.13 07/17/18 18:40 APTT 27.9 Seconds (25.1-36.5) 07/17/18 18:40 Attending/Attestation - Attestation I have personally seen and examined this patient.: Yes I have fully participated in the care of the patient.: Yes I have reviewed all pertinent clinical information, including history, physical exam and plan: Yes Notes (Text): Patient seen and examined by me with resident at 11:40AM on 07/18/18. Case including HPI, physical exam, and assessment and plan discussed with resident. Agree with above with following additions/corrections. Patient is a 37-year-old male with past medical history significant for hypertension, alcohol abuse, and pancreatitis with recent hopsitalization for acute pancreatitis that presented to the emergency room with epigastric pain. Patient states that he is feeling okay. Patient states that he is still having epigastric abdominal pain. Toradol is helping. Patient states he did drink a lot of alcohol again prior to this happening. He denies any current nausea or vomiting. No fevers or chills. No chest pain or palpitations. No shortness of breath. No dysuria. No headaches or dizziness. Physical exam: General: Awake and alert lying in bed in no acute distress HEENT: Normocephalic, atraumatic. Extraocular muscles intact. Pupils equal and reactive, no scleral icterus. Oropharynx is pink and moist. No pharyngeal erythema or exudate appreciated. Neck is supple. Cardiovascular: Regular rhythm. Normal S1 and S2. No murmurs, rubs, or gallops appreciated Pulmonary: Normal respiratory effort. No rhonchi, rales, or wheezing appreciated Gastrointestinal: Soft, nondistended. Positive epigastric tenderness. Positive bowel sounds all 4 quadrants. No guarding. Positive obese abdomen Musculoskeletal: Moves all extremities. No calf tenderness. No edema. Central nervous system: AAO 3. CN 2-12 grossly intact. Dermatologic: Skin warm and dry. Assessment and plan: Patient is a 37-year-old male with past medical history significant for hypertension, alcohol abuse, and pancreatitis with recent hopsitalization for acute pancreatitis that presented to the emergency room with epigastric pain. 1. Acute pancreatitis. Secondary to alcohol abuse. Lipase elevated at 2242. Patient counseled at length on cessation. Continue IV fluids and NPO. Continue pain management. GI following, recommendations appreciated. CTA of the chest, abdomen, and pelvis per radiologist showed pancreatitis, severe fatty infiltration of liver, no evidence of aortic dissection or pulmonary embolism. 2. Alcohol abuse. Patient counseled on cessation. Continue with [facility] protocol. Monitor for withdrawal symptoms. 3. Hypertension, uncontrolled. Patient was advised at last discharge to follow- up with primary care doctor for further treatment. Patient has been noncompliant with this. Compliance of taking medications and following up with his primary care doctor discussed at length with patient. Continue atenolol, Cozaar, and Norvasc. 4. Alcoholic hepatitis/Transaminitis. Secondary to alcohol abuse and severe fatty infiltration of liver. Patient counseled on alcohol cessation. Continue to monitor. 5. Fatty liver. Patient counseled on alcohol cessation, diet, and exercise. 6. GI/DVT prophylaxis. Protonix/SCDs. Case was discussed in detail with the patient regarding this and treatment plan. All questions answered.
--- NOTE | 2018-07-18 14:37 | CON ---
DATE: 07/18/2018 GASTROENTEROLOGY CONSULTATION REQUESTING PHYSICIAN: Dr. Ortega. REASON FOR CONSULTATION: I have been asked to see this 37-year-old male with a history of alcoholism and pancreatitis, who comes into the hospital with epigastric pain associated with nausea and vomiting. The patient also had some diarrhea. The patient went on an alcoholic binge the night prior to his attack and hospitalization. He was recently discharged from the hospital approximately 2 weeks ago for alcohol-induced pancreatitis. The patient had a CT angiogram of the chest to rule out pulmonary embolus and dissection. There was no pulmonary embolus or aortic dissection, but there was evidence of peripancreatic inflammation. PAST MEDICAL HISTORY: Notable for alcohol-induced pancreatitis, just hospitalized approximately 2 weeks ago; hypertension. PAST SURGICAL HISTORY: Notable for gastric bypass 10 years ago, appendectomy, cholecystectomy. SOCIAL HISTORY: He denies cigarette smoking. He is a binge alcoholic, last drink was the night prior to admission. FAMILY HISTORY: Unremarkable. MEDICATIONS: Medications at home include losartan, amlodipine, atenolol and Zoloft. PHYSICAL EXAMINATION: GENERAL: Obese male, lying in bed, in no acute distress. VITAL SIGNS: Reveal temperature of 98.4, blood pressure 146/94, heart rate 97. BMI is 35.3. HEENT: Reveal sclerae to be white. Conjunctivae pink. NECK: Supple. CHEST: Lungs are clear. CARDIAC: Heart exam reveals regular rate and rhythm. ABDOMEN: Obese, soft. Moderate epigastric tenderness. No rebound or guarding. EXTREMITIES: Show no edema. LABORATORY DATA: Reveal white blood cell count 5.2, hemoglobin 11.6. Chemistries reveal potassium of 3.4, total bilirubin 2.6, AST 557, ALT 151, alkaline phosphatase 179, lipase 2242. IMPRESSION: Recurrent alcohol-induced pancreatitis. RECOMMENDATIONS: 1. Continue n.p.o. 2. I will switch the patient over to Lactated Ringer's at 150 mL an hour. 3. Continue analgesics. NOTE: The patient's liver enzymes are elevated with evidence of steatosis on CT angiography. Herman Mckeon MD
[2018-07-18] MEDS ORDERED: Morphine 2 mg/ml ISec IVP PRN (16:14)
[2018-07-18] MEDS: Lactated Ringer's 1,000 ML IV SCH ×2 (18:38→21:25)
[2018-07-19] MEDS: Lactated Ringer's 1,000 ML IV SCH ×3 (05:34→16:30)
[2018-07-19 06:21] LABS: BASO # 0.01 K/mm3 (0.0-2.0); BASO % 0.1 % (0.0-3.0); EOS # 0.1 (0.0-0.7); EOS % 0.7 % (1.5-5.0); GRAN # 5.41 (1.4-6.5); GRAN % 79.3 % (50.0-68.0); HEMOGLOBIN 10.5 g/dL (14.0-18.0); LYMPH # 0.9 (1.2-3.4); LYMPH % 12.7 % (22.0-35.0); MEAN CELL VOLUME 86.1 fl (80.0-105.0); MEAN CORPUSCULAR HEMOGLOBIN 29.1 pg (25.0-35.0); MEAN CORPUSCULAR HGB CONC 33.8 g/dl (31.0-37.0); MEAN PLATELET VOLUME 10.5 fl (7.0-11.0); MONO # 0.5 (0.1-0.6); MONO % 7.2 % (1.0-6.0); RBC 3.61 10^6/uL (3.5-6.1); WHITE BLOOD COUNT 6.8 10^3/uL (4.5-11.0)
[2018-07-19] MEDS: Morphine 2 mg/ml ISec IVP PRN ×4 (06:39→22:18)
[2018-07-19 06:45] LABS: ALB/GLOB RATIO 1.2 (1.1-1.8); ALT/SGPT 102 U/L (7-56); AST/SGOT 160 U/L (17-59); BLOOD UREA NITROGEN 4 mg/dL (7-21); CALCIUM 9.6 mg/dL (8.4-10.5); GFR NON-AFRICAN AMERICAN > 60
--- NOTE | 2018-07-19 11:18 | CP.PCM.PN ---
<Ryne Franks - Last Filed: 07/19/18 11:18> Subjective - Date & Time of Evaluation Date of Evaluation: 07/19/18 Time of Evaluation: 07:00 - Subjective Subjective: Pt seen and examined at bedside. Pt is reporting abdominal pain. Objective - Vital Signs/Intake and Output Vital Signs (last 24 hours): Temp Pulse Resp BP Pulse Ox 99.0 F 97 H 18 143/101 H 98 07/19/18 06:00 07/19/18 06:00 07/19/18 06:00 07/19/18 10:52 07/19/18 06:00 - Medications Medications: Current Medications Amlodipine Besylate (Norvasc) 10 mg PO DAILY [facility] Last Admin: 07/19/18 10:52 Dose: 10 mg Atenolol (Tenormin) 100 mg PO HS [facility] Lactated Ringer's (Lactated Ringer's) 1,000 mls @ 150 mls/hr IV .Q6H40M [facility] Last Admin: 07/19/18 05:34 Dose: 150 mls/hr Lorazepam (Ativan) 1 mg IVP Q4 PRN; Protocol PRN Reason: Symptoms of alcohol withdrawl Last Admin: 07/18/18 23:53 Dose: 1 mg Losartan Potassium (Cozaar) 100 mg PO DAILY [facility] Last Admin: 07/19/18 10:51 Dose: 100 mg Morphine Sulfate (Morphine) 2 mg IVP Q6H PRN PRN Reason: Pain, severe (8-10) Last Admin: 07/19/18 06:39 Dose: 2 mg Ondansetron HCl (Zofran Inj) 4 mg IVP Q6H PRN PRN Reason: Nausea/Vomiting Last Admin: 07/18/18 16:01 Dose: 4 mg Pantoprazole Sodium (Protonix Inj) 40 mg IVP DAILY [facility] Last Admin: 07/19/18 10:53 Dose: 40 mg - Labs Labs: 07/19/18 05:00 07/19/18 05:00 PT 12.9 SECONDS (9.4-12.5) H 07/17/18 18:40 INR 1.13 07/17/18 18:40 APTT 27.9 Seconds (25.1-36.5) 07/17/18 18:40 - Constitutional Appears: No Acute Distress - Head Exam Head Exam: ATRAUMATIC, NORMOCEPHALIC - Eye Exam Eye Exam: EOMI - ENT Exam ENT Exam: Mucous Membranes Moist - Respiratory Exam Respiratory Exam: Clear to Ausculation Bilateral, NORMAL BREATHING PATTERN. absent: Accessory Muscle Use, Respiratory Distress - Cardiovascular Exam Cardiovascular Exam: RRR, +S1, +S2. absent: Diastolic murmur, Murmur - GI/Abdominal Exam GI & Abdominal Exam: Soft, Tenderness, Normal Bowel Sounds - Extremities Exam Extremities Exam: Full ROM. absent: Calf Tenderness, Pedal Edema - Neurological Exam Neurological Exam: Alert, Awake, Oriented x3 - Psychiatric Exam Psychiatric exam: Normal Affect, Normal Mood - Skin Skin Exam: Dry, Intact, Warm Assessment and Plan - Assessment and Plan (Free Text) Assessment: Pt is a 37 yo male with PMH of HTN and acute pancreatitis last treated in 07/04/2018, who presented with epigastric pain which was later found to be acute pancreatitis. Plan: Acute pancreatitis - Lipase: 2243 - Tri - NPO, LR@150 - Zofran PRN - CT chest, abdomen, and pelvis: acute pancreatitis, severe fatty infiltrate of the liver, no evidence of aortic dissection or pulmonary embolus - GI consulted, Dr. Mckeon rec continue NPO, switch pt to LR, continue analgesics Alcohol abuse - Ativan 1mg IV Q4 PRN - continue with [facility] protocol Alcoholic Hepatitis - AST 557, ALT 151, Alk phos 179 - encouraged cessation HTN - Losartan, Atenolol, Amlodipine Ppx - SCD - Protonix - keep NPO until pain subsides Pt seen, examined, assessment and plan discussed with Dr Ly Franks PGY1 <Ly Ortega R - Last Filed: 07/19/18 14:22> Objective - Vital Signs/Intake and Output Vital Signs (last 24 hours): Temp Pulse Resp BP Pulse Ox 99.0 F 97 H 18 143/101 H 98 07/19/18 06:00 07/19/18 06:00 07/19/18 06:00 07/19/18 10:52 07/19/18 06:00 - Medications Medications: Current Medications Amlodipine Besylate (Norvasc) 10 mg PO DAILY [facility] Last Admin: 07/19/18 10:52 Dose: 10 mg Atenolol (Tenormin) 100 mg PO HS [facility] Gemfibrozil (Lopid) 600 mg PO BID [facility] Hydralazine HCl (Apresoline) 25 mg PO DAILY [facility] Lactated Ringer's (Lactated Ringer's) 1,000 mls @ 150 mls/hr IV .Q6H40M [facility] Last Admin: 07/19/18 10:58 Dose: 150 mls/hr Lorazepam (Ativan) 1 mg IVP Q4 PRN; Protocol PRN Reason: Symptoms of alcohol withdrawl Last Admin: 07/18/18 23:53 Dose: 1 mg Losartan Potassium (Cozaar) 100 mg PO DAILY [facility] Last Admin: 07/19/18 10:51 Dose: 100 mg Morphine Sulfate (Morphine) 1 mg IVP Q6H PRN PRN Reason: Pain, severe (8-10) Ondansetron HCl (Zofran Inj) 4 mg IVP Q6H PRN PRN Reason: Nausea/Vomiting Last Admin: 07/18/18 16:01 Dose: 4 mg Pantoprazole Sodium (Protonix Inj) 40 mg IVP DAILY [facility] Last Admin: 07/19/18 10:53 Dose: 40 mg - Labs Labs: 07/19/18 05:00 07/19/18 05:00 PT 12.9 SECONDS (9.4-12.5) H 07/17/18 18:40 INR 1.13 07/17/18 18:40 APTT 27.9 Seconds (25.1-36.5) 07/17/18 18:40 Attending/Attestation - Attestation I have personally seen and examined this patient.: Yes I have fully participated in the care of the patient.: Yes I have reviewed all pertinent clinical information, including history, physical exam and plan: Yes Notes (Text): Patient seen and examined by me with resident at 9:45AM on 07/19/18. Case including HPI, physical exam, and assessment and plan discussed with resident. Agree with above with following additions/corrections. Patient is a 37-year-old male with past medical history significant for hypertension, alcohol abuse, and pancreatitis with recent hospitalization for acute pancreatitis that presented to the emergency room with epigastric pain. Patient states that he still has epigastric abdominal pain. Pain medications are helping. He denies nausea or vomiting. No fevers or chills. No chest pain or palpitations. No shortness of breath. No dysuria. No headaches or dizziness. Patient is having bowel movements. Physical exam: General: Awake and alert lying in bed in no acute distress HEENT: Normocephalic, atraumatic. Extraocular muscles intact. Pupils equal and reactive, no scleral icterus. Oropharynx is pink and moist. No pharyngeal erythema or exudate appreciated. Neck is supple. Cardiovascular: Regular rhythm. Normal S1 and S2. No murmurs, rubs, or gallops appreciated Pulmonary: Normal respiratory effort. No rhonchi, rales, or wheezing appreciated Gastrointestinal: Soft, nondistended. Positive epigastric tenderness. Positive bowel sounds all 4 quadrants. No guarding. Positive obese abdomen Musculoskeletal: Moves all extremities. No calf tenderness. No edema. Central nervous system: AAO 3. CN 2-12 grossly intact. Dermatologic: Skin warm and dry. Assessment and plan: Patient is a 37-year-old male with past medical history significant for hypertension, alcohol abuse, and pancreatitis with recent hopsitalization for acute pancreatitis that presented to the emergency room with epigastric pain. 1. Acute pancreatitis. Secondary to alcohol abuse. Triglycerides also elevated. Lipase elevated at 2242. Patient counseled at length on cessation. Continue IV fluids and NPO per dining room host/hostess Dr Mckeon. Continue pain management. Started on Lopid. GI following, recommendations appreciated. CTA of the chest, abdomen, and pelvis per radiologist showed pancreatitis, severe fatty infiltration of liver, no evidence of aortic dissection or pulmonary embolism. 2. Alcohol abuse. Patient counseled on cessation. Continue with [facility] protocol. Monitor for withdrawal symptoms. 3. Hypertriglyceridemia. Started on Lopid. Patient counseled on diet and exercise. 4. Hypertension, uncontrolled. Patient was advised at last discharge to follow- up with primary care doctor for further treatment. Patient has been noncompliant with this. Compliance of taking medications and following up with his primary care doctor discussed at length with patient. Continue atenolol, Cozaar, and Norvasc. Started on hydralazine 5. Alcoholic hepatitis/Transaminitis. Improving. Secondary to alcohol abuse and severe fatty infiltration of liver. Patient counseled on alcohol cessation. Continue to monitor. 6. Fatty liver. Patient counseled on alcohol cessation, diet, and exercise. 7. GI/DVT prophylaxis. Protonix/SCDs. Case was discussed in detail with the patient regarding this and treatment plan. All questions answered.
--- NOTE | 2018-07-19 12:42 | PN ---
DATE: 07/19/2018 SUBJECTIVE: The patient is still complaining of abdominal pain. He denies any nausea or vomiting. He requested pain medications at 7 o'clock this morning. PHYSICAL EXAMINATION: VITAL SIGNS: Reveal temperature of 99, blood pressure 143/100, heart rate of 97. HEENT: Reveal sclerae to be white. Conjunctivae pink. NECK: Supple. CHEST: Reveal lungs to be clear. HEART: Exam reveals regular rate and rhythm. ABDOMEN: Demonstrates mild mid abdominal tenderness to deep palpation. There is no rebound, there is no guarding. EXTREMITIES: Show no edema. LABORATORY DATA: Reveal hemoglobin 10.5, white blood cell count 6.8, potassium of 3.3. AST is down to 160, ALT 102, total bilirubin 1.9, alkaline phosphatase 160. IMPRESSION: Alcohol-induced pancreatitis with elevated liver enzymes secondary to alcoholic steatohepatitis. RECOMMENDATIONS: 1. Continue IV fluids. 2. Start clear liquids once his abdominal pain abates. 3. Follow electrolytes. 4. Continue IV fluid hydration. Herman Mckeon MD
[2018-07-19 22:27] VITALS: O2SAT 98
[2018-07-20] MEDS: Lactated Ringer's 1,000 ML IV SCH ×2 (02:43→10:56)
[2018-07-20] MEDS: Morphine 2 mg/ml ISec IVP PRN (05:52)
[2018-07-20 07:30] VITALS: RESP 20
[2018-07-20 08:37] LABS: BASO # 0.02 K/mm3 (0.0-2.0); BASO % 0.3 % (0.0-3.0); EOS # 0.2 (0.0-0.7); EOS % 2.6 % (1.5-5.0); GRAN # 4.16 (1.4-6.5); GRAN % 67.8 % (50.0-68.0); LYMPH # 1.3 (1.2-3.4); LYMPH % 21.2 % (22.0-35.0); MEAN CELL VOLUME 85.7 fl (80.0-105.0); MEAN CORPUSCULAR HEMOGLOBIN 29.1 pg (25.0-35.0); MEAN PLATELET VOLUME 10.4 fl (7.0-11.0); MONO # 0.5 (0.1-0.6); MONO % 8.1 % (1.0-6.0); RBC 3.78 10^6/uL (3.5-6.1); WHITE BLOOD COUNT 6.1 10^3/uL (4.5-11.0)
[2018-07-20 09:09] LABS: ALB/GLOB RATIO 1.2 (1.1-1.8); ALBUMIN 4.2 g/dL (3.0-4.8); ALT/SGPT 77 U/L (7-56); AST/SGOT 85 U/L (17-59); BLOOD UREA NITROGEN 7 mg/dL (7-21); CALCIUM 9.8 mg/dL (8.4-10.5); GFR NON-AFRICAN AMERICAN > 60; HDL CHOLESTEROL 62 mg/dL (29-60)
[2018-07-20 09:19] LABS: LDL CHOLESTEROL 77 mg/dL (0-129)
[2018-07-20] MEDS ORDERED: Potassium Chloride 40 mEq/30 ml LIQ UD PO STA (10:05)
--- NOTE | 2018-07-20 11:28 | CP.PCM.PN ---
<Ryne Franks - Last Filed: 07/20/18 11:24> Subjective - Date & Time of Evaluation Date of Evaluation: 07/20/18 Time of Evaluation: 07:00 - Subjective Subjective: Pt seen and examined this morning. Pt request advancing his diet. Pain managed effectively, no new issues. Objective - Vital Signs/Intake and Output Vital Signs (last 24 hours): Temp Pulse Resp BP Pulse Ox 98.4 F 89 20 150/94 H 98 07/20/18 06:00 07/20/18 10:55 07/20/18 06:00 07/20/18 10:55 07/20/18 06:00 - Medications Medications: Current Medications Amlodipine Besylate (Norvasc) 10 mg PO DAILY [facility] Last Admin: 07/20/18 10:53 Dose: 10 mg Atenolol (Tenormin) 100 mg PO HS [facility] Last Admin: 07/19/18 21:50 Dose: 100 mg Hydralazine HCl (Apresoline) 25 mg PO BID [facility] Last Admin: 07/20/18 10:55 Dose: 25 mg Lactated Ringer's (Lactated Ringer's) 1,000 mls @ 75 mls/hr IV .[id number] [facility] Last Admin: 07/20/18 10:56 Dose: 75 mls/hr Lorazepam (Ativan) 1 mg IVP Q4 PRN; Protocol PRN Reason: Symptoms of alcohol withdrawl Last Admin: 07/20/18 07:26 Dose: 1 mg Losartan Potassium (Cozaar) 100 mg PO DAILY [facility] Last Admin: 07/20/18 10:54 Dose: 100 mg Ondansetron HCl (Zofran Inj) 4 mg IVP Q6H PRN PRN Reason: Nausea/Vomiting Last Admin: 07/18/18 16:01 Dose: 4 mg Pantoprazole Sodium (Protonix Inj) 40 mg IVP DAILY [facility] Last Admin: 07/19/18 10:53 Dose: 40 mg - Labs Labs: 07/20/18 08:27 07/20/18 08:27 PT 12.9 SECONDS (9.4-12.5) H 07/17/18 18:40 INR 1.13 07/17/18 18:40 APTT 27.9 Seconds (25.1-36.5) 07/17/18 18:40 - Constitutional Appears: No Acute Distress - Head Exam Head Exam: ATRAUMATIC, NORMOCEPHALIC - Eye Exam Eye Exam: EOMI - ENT Exam ENT Exam: Mucous Membranes Moist - Neck Exam Neck Exam: Full ROM - Respiratory Exam Respiratory Exam: Clear to Ausculation Bilateral, NORMAL BREATHING PATTERN. absent: Accessory Muscle Use - Cardiovascular Exam Cardiovascular Exam: RRR, +S1, +S2. absent: Diastolic murmur - GI/Abdominal Exam GI & Abdominal Exam: Soft, Normal Bowel Sounds - Extremities Exam Extremities Exam: Full ROM. absent: Calf Tenderness, Pedal Edema - Neurological Exam Neurological Exam: Alert, Awake, Oriented x3 - Psychiatric Exam Psychiatric exam: Normal Affect, Normal Mood - Skin Skin Exam: Dry, Normal Color, Warm Assessment and Plan - Assessment and Plan (Free Text) Assessment: Pt is a 37 yo male with PMH of HTN and acute pancreatitis last treated in 07/04/2018, who presented with epigastric pain which was later found to be acute pancreatitis. Plan: Acute pancreatitis - Lipase: 2243, Tri - LR@75, Zofran PRN - CT chest, abdomen, and pelvis: acute pancreatitis, severe fatty infiltrate of the liver, no evidence of aortic dissection or pulmonary embolus - GI consulted, Dr. Mckeon recs appreciated Alcohol abuse - Ativan 1mg IV Q4 PRN - CIWA protocol Alcoholic Hepatitis - AST 85, ALT 77, Alk phos 148, improving - encouraged cessation of alcohol HTN - Losartan, Atenolol, Amlodipine Ppx - SCD - Protonix - CLD, will advance as tolerated Pt seen, examined, assessment and plan discussed with Dr Ly Franks PGY1, Internal Medicine Resident <Ly Ortega R - Last Filed: 07/20/18 17:07> Objective - Vital Signs/Intake and Output Vital Signs (last 24 hours): Temp Pulse Resp BP Pulse Ox 98.7 F 92 H 20 140/07 L 98 07/20/18 14:00 07/20/18 14:00 07/20/18 14:00 07/20/18 14:00 07/20/18 14:00 - Medications Medications: Current Medications Amlodipine Besylate (Norvasc) 10 mg PO DAILY [facility] Last Admin: 07/20/18 10:53 Dose: 10 mg Atenolol (Tenormin) 100 mg PO HS [facility] Last Admin: 07/19/18 21:50 Dose: 100 mg Hydralazine HCl (Apresoline) 25 mg PO BID [facility] Last Admin: 07/20/18 10:55 Dose: 25 mg Lactated Ringer's (Lactated Ringer's) 1,000 mls @ 75 mls/hr IV .[id number] [facility] Last Admin: 07/20/18 10:56 Dose: 75 mls/hr Lorazepam (Ativan) 1 mg IVP Q4 PRN; Protocol PRN Reason: Symptoms of alcohol withdrawl Last Admin: 07/20/18 07:26 Dose: 1 mg Losartan Potassium (Cozaar) 100 mg PO DAILY [facility] Last Admin: 07/20/18 10:54 Dose: 100 mg Ondansetron HCl (Zofran Inj) 4 mg IVP Q6H PRN PRN Reason: Nausea/Vomiting Last Admin: 07/18/18 16:01 Dose: 4 mg Pantoprazole Sodium (Protonix Inj) 40 mg IVP DAILY [facility] Last Admin: 07/20/18 11:24 Dose: 40 mg - Labs Labs: 07/20/18 08:27 07/20/18 08:27 PT 12.9 SECONDS (9.4-12.5) H 07/17/18 18:40 INR 1.13 07/17/18 18:40 APTT 27.9 Seconds (25.1-36.5) 07/17/18 18:40 Attending/Attestation - Attestation I have personally seen and examined this patient.: Yes I have fully participated in the care of the patient.: Yes I have reviewed all pertinent clinical information, including history, physical exam and plan: Yes Notes (Text): Patient seen and examined by me with resident at 10AM on 07/20/18. Case including HPI, physical exam, and assessment and plan discussed with resident. Agree with above with following additions/corrections. Patient is a 37-year-old male with past medical history significant for hypertension, alcohol abuse, and pancreatitis with recent hopsitalization for acute pancreatitis that presented to the emergency room with epigastric pain. Patient states that he feels much better today and wants to try liquid diet and no pain medications. Still having some epigastric pain which is worsened with palpation. No nausea or vomiting. No fevers or chills. No chest pain or palpitations. No shortness of breath. No dysuria. No headaches or dizziness. Patient is having bowel movements. Physical exam: General: Awake and alert lying in bed in no acute distress HEENT: Normocephalic, atraumatic. Extraocular muscles intact. Pupils equal and reactive, no scleral icterus. Oropharynx is pink and moist. No pharyngeal erythema or exudate appreciated. Neck is supple. Cardiovascular: Regular rhythm. Normal S1 and S2. No murmurs, rubs, or gallops appreciated Pulmonary: Normal respiratory effort. No rhonchi, rales, or wheezing appreciated Gastrointestinal: Soft, nondistended. Positive epigastric tenderness. Positive bowel sounds all 4 quadrants. No guarding. Positive obese abdomen Musculoskeletal: Moves all extremities. No calf tenderness. No edema. Central nervous system: AAO 3. CN 2-12 grossly intact. Dermatologic: Skin warm and dry. Assessment and plan: Patient is a 37-year-old male with past medical history significant for hypertension, alcohol abuse, and pancreatitis with recent hopsitalization for acute pancreatitis that presented to the emergency room with epigastric pain. 1. Acute pancreatitis. Secondary to alcohol abuse. Triglycerides elevation resolved. Lipase elevated at 2242. Advace diet. Pain medictions stopped. IV fluids decreased. Advance diet as tolerated. GI following, recommendations appreciated. CTA of the chest, abdomen, and pelvis per radiologist showed pancreatitis, severe fatty infiltration of liver, no evidence of aortic dissection or pulmonary embolism. 2. Alcohol abuse. Patient counseled on cessation. Continue with CIWA protocol. Monitor for withdrawal symptoms. 3. Hypertriglyceridemia. Likely secodnary to Alcohol abuse. Repeat labs within normal limits today. Patient counseled on diet and exercise. 4. Hypertension, uncontrolled. Patient was advised at last discharge to follow- up with primary care doctor for further treatment. Patient has been noncompliant with this. Compliance of taking medications and following up with his primary care doctor discussed at length with patient. Continue atenolol, Cozaar, and Norvasc. Hydralazine started and increased to BID. 5. Alcoholic hepatitis/Transaminitis. Improving. Secondary to alcohol abuse and severe fatty infiltration of liver. Patient counseled on alcohol cessation. Continue to monitor. 6. Fatty liver. Patient counseled on alcohol cessation, diet, and exercise. 7. GI/DVT prophylaxis. Protonix/SCDs. Case was discussed in detail with the patient regarding this and treatment plan. All questions answered.
[2018-07-21] MEDS: Lactated Ringer's 1,000 ML IV SCH (02:00)
[2018-07-21 06:48] LABS: BASO # 0.04 K/mm3 (0.0-2.0); BASO % 0.9 % (0.0-3.0); EOS # 0.2 (0.0-0.7); EOS % 3.4 % (1.5-5.0); GRAN # 2.43 (1.4-6.5); GRAN % 54.4 % (50.0-68.0); HEMOGLOBIN 10.3 g/dL (14.0-18.0); LYMPH # 1.2 (1.2-3.4); LYMPH % 27.4 % (22.0-35.0); MEAN CELL VOLUME 85.5 fl (80.0-105.0); MEAN CORPUSCULAR HEMOGLOBIN 29.3 pg (25.0-35.0); MEAN CORPUSCULAR HGB CONC 34.2 g/dl (31.0-37.0); MEAN PLATELET VOLUME 10.1 fl (7.0-11.0); MONO # 0.6 (0.1-0.6); MONO % 13.9 % (1.0-6.0); RBC 3.52 10^6/uL (3.5-6.1); RED CELL DISTRIBUTION WIDTH 13.3 % (11.5-14.5); WHITE BLOOD COUNT 4.5 10^3/uL (4.5-11.0)
[2018-07-21 07:07] LABS: ALB/GLOB RATIO 1.1 (1.1-1.8); ALBUMIN 3.9 g/dL (3.0-4.8); ALT/SGPT 66 U/L (7-56); AST/SGOT 70 U/L (17-59); BLOOD UREA NITROGEN 6 mg/dL (7-21); CALCIUM 9.7 mg/dL (8.4-10.5); GFR NON-AFRICAN AMERICAN > 60
[2018-07-21 08:21] VITALS: BP 142/98; PULSE 83; TEMP 98.2
--- NOTE | 2018-07-21 14:00 | PN ---
DATE: 07/21/2018 SUBJECTIVE: The patient is lying in bed, abdominal pain is less. He is tolerating solid foods. He denies any nausea or vomiting. PHYSICAL EXAMINATION: VITAL SIGNS: Temperature of 98.2, blood pressure 142/98, heart rate of 83. HEENT: Reveal sclerae to be white. Conjunctivae pink. NECK: Supple. CHEST: Lungs are clear. HEART: Reveals regular rate and rhythm. ABDOMEN: Soft. Mild diffuse tenderness. No rebound or guarding. EXTREMITIES: Show no edema. LABORATORY DATA: White blood cell count 4.5, hemoglobin 10.3. Chemistries reveal AST down to 70, ALT 66, alkaline phosphatase of 141, total bilirubin 1.4. IMPRESSION: 1. Acute alcohol-induced pancreatitis. 2. Alcoholic hepatitis. RECOMMENDATIONS: Continue current treatment. If the patient continues to tolerate diet, he can be discharged home. He has been instructed on strict abstinence from alcohol. Herman Mckeon MD
--- NOTE | 2018-07-21 16:17 | CP.PCM.DIS ---
<Ryne Franks - Last Filed: 07/21/18 16:25> Provider - Provider Date of Admission: 07/17/18 21:00 Attending physician: Mk Arrington MD Consults: 07/17/18 21:53 Physician Consult Routine Comment: Consulting Provider: Herman Mckeon Consulting Physician: Herman Mckeon Reason for Consult: acute pancreatitis Time Spent in preparation of Discharge (in minutes): 40 Diagnosis - Discharge Diagnosis (1) Pancreatitis Status: Acute Priority: High (2) Abdominal pain Status: Acute Priority: High (3) Alcohol abuse Status: Chronic Priority: High (4) HTN (hypertension) Status: Chronic Priority: High Hospital Course - Lab Results Lab Results: Most Recent Lab Values WBC 4.5 10^3/uL (4.5-11.0) D 07/21/18 06:30 RBC 3.52 10^6/uL (3.5-6.1) 07/21/18 06:30 Hgb 10.3 g/dL (14.0-18.0) L 07/21/18 06:30 Hct 30.1 % (42.0-52.0) L 07/21/18 06:30 MCV 85.5 fl (80.0-105.0) 07/21/18 06:30 MCH 29.3 pg (25.0-35.0) 07/21/18 06:30 MCHC 34.2 g/dl (31.0-37.0) 07/21/18 06:30 RDW 13.3 % (11.5-14.5) 07/21/18 06:30 Plt Count 287 10^3/uL (120.0-450.0) 07/21/18 06:30 MPV 10.1 fl (7.0-11.0) 07/21/18 06:30 Gran % 54.4 % (50.0-68.0) 07/21/18 06:30 Lymph % (Auto) 27.4 % (22.0-35.0) 07/21/18 06:30 [place] % (Auto) 13.9 % (1.0-6.0) H 07/21/18 06:30 Eos % (Auto) 3.4 % (1.5-5.0) 07/21/18 06:30 Baso % (Auto) 0.9 % (0.0-3.0) 07/21/18 06:30 Gran # 2.43 (1.4-6.5) 07/21/18 06:30 Lymph # (Auto) 1.2 (1.2-3.4) 07/21/18 06:30 [place] # (Auto) 0.6 (0.1-0.6) 07/21/18 06:30 Eos # (Auto) 0.2 (0.0-0.7) 07/21/18 06:30 Baso # (Auto) 0.04 K/mm3 (0.0-2.0) 07/21/18 06:30 PT 12.9 SECONDS (9.4-12.5) H 07/17/18 18:40 INR 1.13 07/17/18 18:40 APTT 27.9 Seconds (25.1-36.5) 07/17/18 18:40 Sodium 139 mmol/L (132-148) 07/21/18 06:30 Potassium 3.6 mmol/L (3.6-5.0) 07/21/18 06:30 Chloride 104 mmol/L (98-107) 07/21/18 06:30 Carbon Dioxide 31 mmol/L (21-33) 07/21/18 06:30 Anion Gap 9 (10-20) L 07/21/18 06:30 BUN 6 mg/dL (7-21) L 07/21/18 06:30 Creatinine 0.9 mg/dl (0.8-1.5) 07/21/18 06:30 Est GFR ( Amer) > 60 07/21/18 06:30 Est GFR (Non-Af Amer) > 60 07/21/18 06:30 Random Glucose 95 mg/dL (70-110) 07/21/18 06:30 Calcium 9.7 mg/dL (8.4-10.5) 07/21/18 06:30 Magnesium 2.0 mg/dL (1.7-2.2) 07/21/18 06:30 Total Bilirubin 1.4 mg/dL (0.2-1.3) H 07/21/18 06:30 AST 70 U/L (17-59) H 07/21/18 06:30 ALT 66 U/L (7-56) H 07/21/18 06:30 Alkaline Phosphatase 141 U/L (38-126) H 07/21/18 06:30 Lactate Dehydrogenase 810 U/L (333-699) H 07/17/18 18:31 Total Creatine Kinase 96 U/L (35-230) 07/17/18 18:31 Troponin I < 0.01 ng/mL D 07/17/18 18:31 Total Protein 7.3 g/dL (5.8-8.3) 07/21/18 06:30 Albumin 3.9 g/dL (3.0-4.8) 07/21/18 06:30 Globulin 3.4 gm/dL 07/21/18 06:30 Albumin/Globulin Ratio 1.1 (1.1-1.8) 07/21/18 06:30 Triglycerides 72 mg/dL (35-160) 07/20/18 08:27 Cholesterol 162 mg/dL (130-200) 07/20/18 08:27 LDL Cholesterol Direct 77 mg/dL (0-129) 07/20/18 08:27 HDL Cholesterol 62 mg/dL (29-60) H 07/20/18 08:27 Lipase 2242 U/L (23-300) H 07/17/18 18:00 Urine Color Dark yellow (YELLOW) 07/17/18 19:47 Urine Appearance Clear (CLEAR) 07/17/18 19:47 Urine pH 6.0 (4.7-8.0) 07/17/18 19:47 Ur Specific [place] >= 1.030 (1.005-1.035) 07/17/18 19:47 Urine Protein Trace mg/dL (<30 mg/dL) H 07/17/18 19:47 Urine Glucose (UA) Negative mg/dL (NEGATIVE) 07/17/18 19:47 Urine Ketones Negative mg/dL (NEGATIVE) 07/17/18 19:47 Urine Blood Negative (NEGATIVE) 07/17/18 19:47 Urine Nitrate Negative (NEGATIVE) 07/17/18 19:47 Urine Bilirubin Negative (NEGATIVE) 07/17/18 19:47 Urine Urobilinogen 0.2 E.U./dL (<1 E.U./dL) 07/17/18 19:47 Ur Leukocyte Esterase Negative Benigno/uL (NEGATIVE) 07/17/18 19:47 Urine RBC None /hpf (0-2) 07/17/18 19:47 Urine WBC 0 - 2 /hpf (0-6) 07/17/18 19:47 Ur Epithelial Cells 1 - 3 /hpf (0-5) 07/17/18 19:47 Acetaminophen < 10.0 ug/ml (10.0-20.0) L 07/17/18 18:40 Alcohol, Quantitative < 10 mg/dL (0-10) 07/17/18 18:40 - Hospital Course Hospital Course: Upon Arrival Pt is a 37 yo male with a PMH of HTN and acute pancreatitis last treated in 07/04/2018, who presented with epigastric pain that started this morning. Pt describes the pain to be constant, burning and stabbing, radiates to the upper right and left chest marino, and 10/10 in severity. Pt states that he took 6 Tylenol pills and 2 Aleve pills without relief. He states that taking a deep breath worsens the pain. Patient was recently discharged on 07/04/2018 for acute pancreatitis. He admits to drinking several shots of Sera every other day and his last drink was the night before his symptoms started. Hospitalization Pt was treated for acute pancreatitis. His lipase was 2243, treated with IVF. GI was consulted and recommendations were given. Pt was placed on CIWA protocol for his alcohol abuse and possible withdrawal. Pt was found to have alcoholic hepatitis. Discharge Please follow up with primary care physician within 5 days. Pt was prescribed a new medication, Hydralazine. Please only take one tablet at most twice a day, ONLY NEEDED. Advised to take it only if systolic blood pressure is > 170. Advised to stop drinking alcohol. We have discussed this at length, it is the only way to avoid pancreatitis. Please drink plenty of fluids and stay hydrated. - Date & Time of H&P Date of H&P: 07/21/18 Time of H&P: 07:00 Discharge Exam - Head Exam Head Exam: ATRAUMATIC, NORMOCEPHALIC - Eye Exam Eye Exam: EOMI - ENT Exam ENT Exam: Mucous Membranes Moist - Respiratory Exam Respiratory Exam: NORMAL BREATHING PATTERN, UNREMARKABLE. absent: Accessory Muscle Use, Respiratory Distress - Cardiovascular Exam Cardiovascular Exam: RRR, +S1, +S2. absent: Systolic Murmur - Extremities Exam Extremities exam: full ROM, tenderness, pedal pulses present - Neurological Exam Neurological exam: Alert, Oriented x3 - Psychiatric Exam Psychiatric exam: Normal Affect, Normal Mood - Skin Skin Exam: Dry, Normal Color, Warm Discharge Plan - Discharge Medications Prescriptions: hydrALAZINE [Apresoline] 25 mg PO BID PRN #30 tab PRN Reason: Systolic Blood Pressure - Follow Up Plan Condition: FAIR Disposition: HOME/ ROUTINE Instructions: Alcohol Use - When Is Drinking a Problem?, Pancreatitis (DC), Alcohol Abuse and Alcoholism (DC), Influenza Virus Vaccine (Recombinant), Pneumococcal Polysaccharide Vaccine (23-Valent), Effects of Alcohol on Your Health, Acute Abdominal Pain (DC) Additional Instructions: Please follow up with your primary care physician within 5 days. You are being prescribed a new medication, Hydralazine. Please only take one tablet at most twice a day, ONLY NEEDED Take it only if your systolic blood pressure (top number) is > 170 Please follow our advice of alcohol cessation. We have discussed this at length, it is the only way to avoid pancreatitis. Please drink plenty of fluids and stay hydrated. If your symptoms return please report to the nearest emergency room immediately <Mk Arrington - Last Filed: 07/22/18 14:57> Provider - Provider Date of Admission: 07/17/18 21:00 Attending physician: Mk Arrington MD Consults: 07/17/18 21:53 Physician Consult Routine Comment: Consulting Provider: Herman Mckeon Consulting Physician: Herman Mckeon Reason for Consult: acute pancreatitis Hospital Course - Lab Results Lab Results: Most Recent Lab Values WBC 4.5 10^3/uL (4.5-11.0) D 07/21/18 06:30 RBC 3.52 10^6/uL (3.5-6.1) 07/21/18 06:30 Hgb 10.3 g/dL (14.0-18.0) L 07/21/18 06:30 Hct 30.1 % (42.0-52.0) L 07/21/18 06:30 MCV 85.5 fl (80.0-105.0) 07/21/18 06:30 MCH 29.3 pg (25.0-35.0) 07/21/18 06:30 MCHC 34.2 g/dl (31.0-37.0) 07/21/18 06:30 RDW 13.3 % (11.5-14.5) 07/21/18 06:30 Plt Count 287 10^3/uL (120.0-450.0) 07/21/18 06:30 MPV 10.1 fl (7.0-11.0) 07/21/18 06:30 Gran % 54.4 % (50.0-68.0) 07/21/18 06:30 Lymph % (Auto) 27.4 % (22.0-35.0) 07/21/18 06:30 [place] % (Auto) 13.9 % (1.0-6.0) H 07/21/18 06:30 Eos % (Auto) 3.4 % (1.5-5.0) 07/21/18 06:30 Baso % (Auto) 0.9 % (0.0-3.0) 07/21/18 06:30 Gran # 2.43 (1.4-6.5) 07/21/18 06:30 Lymph # (Auto) 1.2 (1.2-3.4) 07/21/18 06:30 [place] # (Auto) 0.6 (0.1-0.6) 07/21/18 06:30 Eos # (Auto) 0.2 (0.0-0.7) 07/21/18 06:30 Baso # (Auto) 0.04 K/mm3 (0.0-2.0) 07/21/18 06:30 PT 12.9 SECONDS (9.4-12.5) H 07/17/18 18:40 INR 1.13 07/17/18 18:40 APTT 27.9 Seconds (25.1-36.5) 07/17/18 18:40 Sodium 139 mmol/L (132-148) 07/21/18 06:30 Potassium 3.6 mmol/L (3.6-5.0) 07/21/18 06:30 Chloride 104 mmol/L (98-107) 07/21/18 06:30 Carbon Dioxide 31 mmol/L (21-33) 07/21/18 06:30 Anion Gap 9 (10-20) L 07/21/18 06:30 BUN 6 mg/dL (7-21) L 07/21/18 06:30 Creatinine 0.9 mg/dl (0.8-1.5) 07/21/18 06:30 Est GFR ( Amer) > 60 07/21/18 06:30 Est GFR (Non-Af Amer) > 60 07/21/18 06:30 Random Glucose 95 mg/dL (70-110) 07/21/18 06:30 Calcium 9.7 mg/dL (8.4-10.5) 07/21/18 06:30 Magnesium 2.0 mg/dL (1.7-2.2) 07/21/18 06:30 Total Bilirubin 1.4 mg/dL (0.2-1.3) H 07/21/18 06:30 AST 70 U/L (17-59) H 07/21/18 06:30 ALT 66 U/L (7-56) H 07/21/18 06:30 Alkaline Phosphatase 141 U/L (38-126) H 07/21/18 06:30 Lactate Dehydrogenase 810 U/L (333-699) H 07/17/18 18:31 Total Creatine Kinase 96 U/L (35-230) 07/17/18 18:31 Troponin I < 0.01 ng/mL D 07/17/18 18:31 Total Protein 7.3 g/dL (5.8-8.3) 07/21/18 06:30 Albumin 3.9 g/dL (3.0-4.8) 07/21/18 06:30 Globulin 3.4 gm/dL 07/21/18 06:30 Albumin/Globulin Ratio 1.1 (1.1-1.8) 07/21/18 06:30 Triglycerides 72 mg/dL (35-160) 07/20/18 08:27 Cholesterol 162 mg/dL (130-200) 07/20/18 08:27 LDL Cholesterol Direct 77 mg/dL (0-129) 07/20/18 08:27 HDL Cholesterol 62 mg/dL (29-60) H 07/20/18 08:27 Lipase 2242 U/L (23-300) H 07/17/18 18:00 Urine Color Dark yellow (YELLOW) 07/17/18 19:47 Urine Appearance Clear (CLEAR) 07/17/18 19:47 Urine pH 6.0 (4.7-8.0) 07/17/18 19:47 Ur Specific [place] >= 1.030 (1.005-1.035) 07/17/18 19:47 Urine Protein Trace mg/dL (<30 mg/dL) H 07/17/18 19:47 Urine Glucose (UA) Negative mg/dL (NEGATIVE) 07/17/18 19:47 Urine Ketones Negative mg/dL (NEGATIVE) 07/17/18 19:47 Urine Blood Negative (NEGATIVE) 07/17/18 19:47 Urine Nitrate Negative (NEGATIVE) 07/17/18 19:47 Urine Bilirubin Negative (NEGATIVE) 07/17/18 19:47 Urine Urobilinogen 0.2 E.U./dL (<1 E.U./dL) 07/17/18 19:47 Ur Leukocyte Esterase Negative Benigno/uL (NEGATIVE) 07/17/18 19:47 Urine RBC None /hpf (0-2) 07/17/18 19:47 Urine WBC 0 - 2 /hpf (0-6) 07/17/18 19:47 Ur Epithelial Cells 1 - 3 /hpf (0-5) 07/17/18 19:47 Acetaminophen < 10.0 ug/ml (10.0-20.0) L 07/17/18 18:40 Alcohol, Quantitative < 10 mg/dL (0-10) 07/17/18 18:40 Attending/Attestation - Attestation I have personally seen and examined this patient.: Yes I have fully participated in the care of the patient.: Yes I have reviewed all pertinent clinical information, including history, physical exam and plan: Yes Notes (Text): 07/22/18 14:50 Attending note; Patient seen and examined with resident. Patient is alert and awake. Denies any abdominal pain. Tolerating diet well. Denies any nausea, vomiting. Patient is a 37-year-old male with past medical history significant for hypertension, alcohol abuse, and pancreatitis with recent hopsitalization for acute pancreatitis that presented to the emergency room with epigastric pain. 1. Acute pancreatitis. Secondary to alcohol abuse. Triglycerides elevation resolved. Treated with npo, IV fluids. Started on clear liquid diet and advance to soft diet today. Low-fat low-cholesterol diet ordered. GI recommendations appreciated. CTA of the chest, abdomen, and pelvisshowed pancreatitis, severe fatty infiltration of liver, no evidence of aortic dissection or pulmonary embolism. 2. Alcohol abuse. Patient counseled on cessation. 3. Hypertriglyceridemia. Likely secodnary to Alcohol abuse. Repeat labs within normal limits today. Patient counseled on diet and exercise. Dietary education given. 4. Hypertension, uncontrolled. Continue atenolol, Cozaar, and Norvasc. Hydralazine started and increased to BID. 5. Alcoholic hepatitis/Transaminitis. Improving. Secondary to alcohol abuse and severe fatty infiltration of liver. Patient counseled on alcohol cessation. Advised to follow-up repeat LFTs. 6. Fatty liver. Patient counseled on alcohol cessation, diet, and exercise. Upon discharge the patient will follow up with PMD Dr. Yang.
[2018-07-22] MEDS ORDERED: Pantoprazole 40 mg EC Tab PO SCH (07:30)
== END 2018-07-21 14:54 | disposition home or self-care (01) | DRG 204 ==
LOC: ED 17:09 → ERH 21:00 → 5RNO 07-18 02:42
PROVIDERS: ADMIT Hospitalist; ATTEND Internal Medicine
DX: K85.20 Alcohol induced acute pancreatitis without necrosis or infection (principal); K70.10 Alcoholic hepatitis without ascites; E78.1 Pure hyperglyceridemia; F10.10 Alcohol abuse, uncomplicated; K52.9 Noninfective gastroenteritis and colitis, unspecified; I10 Essential (primary) hypertension; F32.9 Major depressive disorder, single episode, unspecified; K76.0 Fatty (change of) liver, not elsewhere classified; K21.9 Gastro-esophageal reflux disease without esophagitis; Y90.0 Blood alcohol level of less than 20 mg/100 ml; Z87.891 Personal history of nicotine dependence; Z91.19 Patient's noncompliance with other medical treatment and regimen; Z98.84 Bariatric surgery status

== ENCOUNTER 2018-08-11 19:03 | Inpatient (IN) | payer MEDICAID ==
[2018-08-11 19:13] VITALS: BMI 36.9
[2018-08-11 19:49] LABS: BASO # 0.03 K/mm3 (0.0-2.0); BASO % 0.4 % (0.0-3.0); EOS % 0.1 % (1.5-5.0); HEMOGLOBIN 13.4 g/dL (14.0-18.0); LYMPH % 14.7 % (22.0-35.0); MEAN CELL VOLUME 83.2 fl (80.0-105.0); MEAN CORPUSCULAR HEMOGLOBIN 29.6 pg (25.0-35.0); MEAN CORPUSCULAR HGB CONC 35.5 g/dl (31.0-37.0); MEAN PLATELET VOLUME 9.7 fl (7.0-11.0); MONO # 0.3 (0.1-0.6); MONO % 5.1 % (1.0-6.0); RBC 4.53 10^6/uL (3.5-6.1); RED CELL DISTRIBUTION WIDTH 13.9 % (11.5-14.5); WHITE BLOOD COUNT 6.7 10^3/uL (4.5-11.0)
[2018-08-11] MEDS ORDERED: Sodium Chloride 0.9% 1,000 ML IV STA (20:00)
[2018-08-11] MEDS ORDERED: Alum-Mag Hydrox-Simethicone Susp (30 mL) PO STA (20:00)
[2018-08-11] MEDS ORDERED: Atrop/Hyosc/Scopal/PB Elixir (120 ml) PO STA (20:00)
--- NOTE | 2018-08-11 20:00 | ED PDOC ---
Arrival/HPI - General Chief Complaint: Chest Pain Time Seen by Provider: 08/11/18 19:19 Historian: Patient - History of Present Illness Narrative History of Present Illness (Text): 08/11/18 19:53 37 y/o M w/ h/o HTN and pancreatitis presenting to the Emergency Room for chest palpitations. Patient reports drinking 5-6 drinks yesterday when he started feeling palpitations, nausea and epigastric tenderness. The patient states he attempted to self-medicate with Tylenol with no resolution in his symptoms. He reports having non-bloody, non-bilious emesis this morning with continued abdominal pain. He reports anxiety at this time. He denies chest pressure, fevers, chills, back pain, syncopal episodes, parasthesias, weakness or dysuria at this time. The patient states his symptoms feel similar to his other episodes of pancreatitis. Time/Duration: 24 hours Symptom Onset: Sudden Symptom Course: Intermittent Quality: Cramping Severity Level: 6 Activities at Onset: Significant, Eating Context: Home Past Medical History - Provider Review Nursing Documentation Reviewed: Yes - Travel History Have you recently traveled outside [place] w/in the past 3 mons?: No - Infectious Disease Hx of Infectious Diseases: None - Cardiac Hx Cardiac Disorders: Yes Hx Hypertension: Yes - Pulmonary Hx Respiratory Disorders: No - Neurological Hx Neurological Disorder: No - HEENT Hx HEENT Disorder: No - Renal Hx Renal Disorder: No - Endocrine/Metabolic Hx Endocrine Disorders: No - Hematological/Oncological Hx Blood Disorders: No - Integumentary Hx Dermatological Disorder: No - Musculoskeletal/Rheumatological Hx Musculoskeletal Disorders: No - Gastrointestinal Hx Gastrointestinal Disorders: Yes Hx Pancreatitis: Yes Other/Comment: gastric bypass sx about 10 yrs ago with 150 lb weight loss - Genitourinary/Gynecological Hx Genitourinary Disorders: No - Psychiatric Hx Psychophysiologic Disorder: Yes Hx Depression: Yes Hx Substance Use: No - Surgical History Hx Appendectomy: Yes Hx Cholecystectomy: Yes Hx Gastric Bypass Surgery: Yes (about 10 yrs ago) - Anesthesia Hx Anesthesia: Yes Hx Anesthesia Reactions: No Hx Malignant Hyperthermia: No Family/Social History - Physician Review Nursing Documentation Reviewed: Yes Family/Social History: Unknown Family HX Smoking Status: Never Smoked Hx Alcohol Use: Yes Frequency of alcohol use: Socially Hx Substance Use: No Allergies/Home Meds Allergies/Adverse Reactions: Allergies ramipril Adverse Reaction (Verified 08/11/18 19:21) ANGIOEDEMA Home Medications: Home Meds Medication Instructions Recorded Confirmed RX: Omeprazole 20 mg PO DAILY 07/04/18 07/17/18 Review of Systems - Physician Review All systems were reviewed & negative as marked: Yes - Review of Systems Respiratory: absent: SOB, Wheezing Cardiovascular: Palpitations. absent: Chest Pain Gastrointestinal: Abdominal Pain, Nausea, Vomiting. absent: Constipation, Diarrhea, Appetite Changes, Hematemesis Physical Exam Vital Signs Reviewed: Yes Vital Signs Temp Pulse Resp BP Pulse Ox 08/11/18 19:32 98.4 F 98 H 18 147/104 H 98 Temperature: Afebrile Blood Pressure: Hypertensive Pulse: Regular Respiratory Rate: Normal Appearance: Positive for: Well-Appearing, Non-Toxic, Comfortable Mental Status: Positive for: Alert and Oriented X 3 - Systems Exam Head: Present: Atraumatic, Normocephalic Pupils: Present: PERRL Extroacular Muscles: Present: EOMI Mouth: Present: Moist Mucous Membranes Neck: Present: Normal Range of Motion Respiratory/Chest: Present: Clear to Auscultation, Good Air Exchange. No: Respiratory Distress Cardiovascular: Present: Regular Rate and Rhythm, Normal S1, S2 Abdomen: Present: Tenderness (tenderness to palpation of the epigastric region), Distention, Normal Bowel Sounds. No: Peritoneal Signs Upper Extremity: Present: Normal Inspection. No: Cyanosis, Edema Lower Extremity: Present: Normal Inspection. No: Edema Neurological: Present: GCS=15, Speech Normal Skin: Present: Warm, Dry, Normal Color Psychiatric: Present: Alert, Oriented x 3, Normal Insight, Normal Concentration Medical Decision Making ED Course and Treatment: 08/11/18 20:20 Impression 37M w/ h/o pancreatitis presenting with abdominal pain, nausea, emesis, and palpitations Differential Diagnoses Includes But is Not Limited To: --Pancreatitis --Arrythmia --Gastritis --ACS Plan --Labs --EKG --CXR --CT a/p w/ contrast --Maalox --Pepcid -- --Reglan --Valium --IV Fluids --Reasses & disposition Progress Notes 08/11/18 21:43 Labs reviewed with no leukocytosis or electrolytes noted. Lipase noted to be elevated to 700s. CT a/p pending. 08/11/18 22:54 CT a/p reveals findings consistent with pancreatitis and enterocolitis. Endorsed patient to medical office technology instructor. Page placed to Dr. Roth(house staff). - Lab Interpretations Lab Results: 08/11/18 19:44 08/11/18 19:44 Lab Results 08/11/18 19:44: Lipase 753 H 08/11/18 19:44: Sodium 138, Potassium 3.6, Chloride 99, Carbon Dioxide 25, Anion Gap 17, BUN 10, Creatinine 0.9, Est GFR ( Amer) > 60, Est GFR (Non-Af Amer) > 60, Random Glucose 128 H, Calcium 10.2, Magnesium 1.4 L, Total Bilirubin 1.8 H, AST 156 H D, ALT 56, Alkaline Phosphatase 154 H, Troponin I < 0.01, NT-Pro-B Natriuret Pep 79.9, Total Protein 9.1 H, Albumin 5.1 H, Globulin 4.0, Albumin/Globulin Ratio 1.3 08/11/18 19:44: D-Dimer, Quantitative 336 H 08/11/18 19:44: WBC 6.7 D, RBC 4.53, Hgb 13.4 L D, Hct 37.7 L, MCV 83.2, MCH 29.6, MCHC 35.5, RDW 13.9, Plt Count 331, MPV 9.7, Neut % (Auto) 79.7 H, Lymph % (Auto) 14.7 L, [place] % (Auto) 5.1, Eos % (Auto) 0.1 L, Baso % (Auto) 0.4, Lymph # (Auto) 1.0 L, [place] # (Auto) 0.3, Eos # (Auto) 0.0, Baso # (Auto) 0.03, Absolute Neuts (auto) 5.36 I have reviewed the lab results: Yes - RAD Interpretation Narrative RAD Interpretations (Text): 08/11/18 22:41 CT Abdomen and Pelvis with IV contrast CLINICAL HISTORY: H/o pancreatitis w/ abdominal pain TECHNIQUE: Axial computed tomography images of the abdomen and pelvis with intravenous contrast. 1014.35 mGy-cm CONTRAST: With; OMNI 350 150 ml COMPARISON: CT\SD - ANGIOGRAPHY DISECTION PROTOCOL - 07/17/2018 08:54 PM EST FINDINGS: LUNG BASES: The lung bases are clear. LIVER: Again demonstrated is hepatomegaly and fatty liver infiltration similar to July 17, 2018. GALLBLADDER AND BILE DUCTS: The gallbladder is surgically absent. PANCREAS: Again seen is peripancreatic stranding compatible with acute pancreatitis. This appears similar to slightly less on the current study as compared with July 17, 2018. No substantial peripancreatic fluid collections identified. SPLEEN: Unremarkable. ADRENAL GLANDS: Unremarkable. KIDNEYS, URETERS, AND BLADDER: Bladder is decompressed. STOMACH AND BOWEL: Again noted are postsurgical changes of the stomach. No evidence for small bowel obstruction. APPENDIX: No evidence of acute appendicitis on CT examination. PERITONEUM: No pneumoperitoneum. No ascites. LYMPH NODES: No lymphadenopathy. REPRODUCTIVE: Unremarkable as visualized. VASCULATURE: No evidence of abdominal aortic aneurysm. BONES: Minimal degenerative spine changes. MISCELLANEOUS: There is wall thickening at the rectosigmoid compatible with a proctocolitis. This appears new or worsened currently in comparison with July 17, 2018. IMPRESSION: 1. Again demonstrated is hepatomegaly and fatty liver infiltration similar to July 17, 2018. 2. Again seen is peripancreatic stranding compatible with acute pancreatitis. This appears similar to slightly less on the current study as compared with July 17, 2018. No substantial peripancreatic fluid collections identified. 3. There is wall thickening at the rectosigmoid compatible with a proctocolitis. This appears new or worsened currently in comparison with July 17, 2018. 4. Additional and incidental findings as described, please see comments. Radiology Orders: 08/11/18 19:25 CHEST PORTABLE [RAD] Stat 08/11/18 19:52 ABDOMEN & PELVIS [ABD & PELVIS IV CONTRAST ONLY] [CT] Stat [employer]: Radiologist - EKG Interpretation EKG Interpretation (Text): 08/11/18 22:08 Sinus tachycardia @ 102 LVH w/ T wave inversions noted in V4-V6 & Lead II No ST elevation Interpreted by ED Physician: Yes Type: 12 lead EKG Disposition/Present on Arrival - Present on Arrival Any Indicators Present on Arrival: No History of DVT/PE: No History of Uncontrolled Diabetes: No Urinary Catheter: No History of Decub. Ulcer: No History Surgical Site Infection Following: None - Disposition Have Diagnosis and Disposition been Completed?: Yes Diagnosis: Pancreatitis Disposition: HOSPITALIZED Disposition Time: 22:54 Patient Plan: Admission Condition: GOOD
[2018-08-11] MEDS ORDERED: Labetalol 5 mg/ml Inj 20ML IV STA (20:03)
[2018-08-11 20:11] LABS: ALB/GLOB RATIO 1.3 (1.1-1.8); ALBUMIN 5.1 g/dL (3.0-4.8); ALT/SGPT 56 U/L (7-56); AST/SGOT 156 U/L (17-59); BLOOD UREA NITROGEN 10 mg/dL (7-21); CALCIUM 10.2 mg/dL (8.4-10.5); GFR NON-AFRICAN AMERICAN > 60
[2018-08-11 20:17] LABS: B-TYPE NATRIURETIC PEPTIDE 79.9 pg/mL (0-450); TROPONIN I < 0.01 ng/mL
[2018-08-11] MEDS ORDERED: Morphine 4 mg/ml ISec IVP STA (22:24)
[2018-08-11 23:16] LABS: URINE BILIRUBIN NEGATIVE (NEGATIVE); URINE BLOOD NEGATIVE (NEGATIVE); URINE GLUCOSE (UA) NEGATIVE (NEGATIVE); URINE LEUKOCYTE ESTERASE NEGATIVE Leu/uL (NEGATIVE); URINE PROTEIN NEGATIVE mg/dL (<30 mg/dL); URINE UROBILINOGEN 0.2 E.U./dL (<1 E.U./dL)
[2018-08-11] MEDS ORDERED: Magnesium Sulfate 2 gm/50 ml 2 GM/50 ML BAG IVPB ONE (23:18)
[2018-08-11 23:21] LABS: URINE APPEARANCE CLEAR (CLEAR); URINE COLOR YELLOW (YELLOW)
[2018-08-11] MEDS ORDERED: Multivitamin (MVI) 10 ML, Thiamine 100 MG, Folic Acid 1 MG in Sodium Chloride 0.9% 1,00... IV ONE (23:24)
[2018-08-11] MEDS ORDERED: Ciprofloxacin 400mg/200ml D5W 400 MG/200 ML BAG IVPB SCH (23:30)
--- NOTE | 2018-08-12 00:10 | CP.PCM.HP ---
<Richard Jean - Last Filed: 08/12/18 00:07> History of Present Illness - History of Present Illness History of Present Illness: 37 year old male with past medical history of HTN, pancreatitis, and alcohol abuse presents to the hospital for worsening abdominal pain x 1 day. Patient states he drank 5-6 drinks yesterday with last drink being yesterday morning. Patient admits to using tylenol for pain, but with no relief. Pain is located in epigstric region and radiates to the back. Pain is described as sharp in nature and has become constant. [facility] starting this [facility]. No blood noted. He also admits to nausea and vomiting. Patient has had 2 other admissions in the last month for acute pancreatitis. Denies chest pain, fever, chills, sick contacts recent travel, numbness, tingling. Medical Hx: As above Surgical Hx: Appendectomy, Cholecystectomy, gastric bypass Family hx: DM, HTN Social hx: Drinks every other day, approximately 5-6 glasses of jose. Denies tobacco or illicit drug use Allergies: Ramipril Medications: Amlodipine 10mg qd, Omeprazole 20mg qd, Losartan 100mg qd, Atenolol 100mg qd, Hydralazine PRN PMD: Dr. Yang Present on Admission - Present on Admission Any Indicators Present on Admission: No Review of Systems - Review of Systems Review of Systems: 12 point ROS as per HPI, otherwise negative Past Patient History - Infectious Disease Hx of Infectious Diseases: None - Past Medical History & Family History Past Medical History?: Yes - Past Social History Smoking Status: Never Smoked - CARDIAC Hx Cardiac Disorders: Yes Hx Hypertension: Yes - PULMONARY Hx Respiratory Disorders: No - NEUROLOGICAL Hx Neurological Disorder: No - HEENT Hx HEENT Problems: No - RENAL Hx Chronic Kidney Disease: No - ENDOCRINE/METABOLIC Hx Endocrine Disorders: No - HEMATOLOGICAL/ONCOLOGICAL Hx Blood Disorders: No - INTEGUMENTARY Hx Dermatological Problems: No - MUSCULOSKELETAL/RHEUMATOLOGICAL Hx Musculoskeletal Disorders: No - GASTROINTESTINAL Hx Gastrointestinal Disorders: Yes Hx Pancreatitis: Yes Other/Comment: gastric bypass sx about 10 yrs ago with 150 lb weight loss - GENITOURINARY/GYNECOLOGICAL Hx Genitourinary Disorders: No - PSYCHIATRIC Hx Psychophysiologic Disorder: Yes Hx Depression: Yes Hx Substance Use: No - SURGICAL HISTORY Hx Appendectomy: Yes Hx Cholecystectomy: Yes Hx Gastric Bypass Surgery: Yes (about 10 yrs ago) - ANESTHESIA Hx Anesthesia: Yes Hx Anesthesia Reactions: No Hx Malignant Hyperthermia: No Meds Allergies/Adverse Reactions: Allergies Allergy/AdvReac Type Severity Reaction Status Date / Time ramipril AdvReac ANGIOEDEMA Verified 08/11/18 19:21 Physical Exam - Constitutional Appears: Non-toxic, No Acute Distress - Head Exam Head Exam: ATRAUMATIC, NORMAL INSPECTION, NORMOCEPHALIC - Eye Exam Eye Exam: EOMI, Normal appearance - ENT Exam ENT Exam: Mucous Membranes Moist, Normal Exam - Respiratory Exam Respiratory Exam: Clear to Auscultation Bilateral, NORMAL BREATHING PATTERN - Cardiovascular Exam Cardiovascular Exam: RRR, +S1, +S2 - GI/Abdominal Exam GI & Abdominal Exam: Normal Bowel Sounds, Soft, Tenderness. absent: Distended, Guarding, Rebound Additional comments: Epigastric - Extremities Exam Extremities exam: Positive for: normal inspection. Negative for: pedal edema - Neurological Exam Neurological exam: Alert, CN II-XII Intact, Oriented x3 - Psychiatric Exam Psychiatric exam: Normal Affect, Normal Mood - Skin Skin Exam: Intact, Normal Color, Warm Results - Vital Signs Recent Vital Signs: Last Vital Signs Temp 98.4 F 08/11/18 19:32 Pulse 106 H 08/11/18 23:08 Resp 19 08/11/18 23:08 BP 152/98 H 08/11/18 23:08 Pulse Ox 97 08/11/18 23:08 - Labs Result Diagrams: 08/11/18 19:44 08/11/18 19:44 Labs: Laboratory Results - last 24 hr 08/11/18 08/11/18 08/11/18 19:44 19:44 19:44 WBC 6.7 D RBC 4.53 Hgb 13.4 L D Hct 37.7 L MCV 83.2 MCH 29.6 MCHC 35.5 RDW 13.9 Plt Count 331 MPV 9.7 Neut % (Auto) 79.7 H Lymph % (Auto) 14.7 L Day % (Auto) 5.1 Eos % (Auto) 0.1 L Baso % (Auto) 0.4 Lymph # (Auto) 1.0 L Day # (Auto) 0.3 Eos # (Auto) 0.0 Baso # (Auto) 0.03 Absolute Neuts (auto) 5.36 D-Dimer, Quantitative 336 H Sodium 138 Potassium 3.6 Chloride 99 Carbon Dioxide 25 Anion Gap 17 BUN 10 Creatinine 0.9 Est GFR ( Amer) > 60 Est GFR (Non-Af Amer) > 60 Random Glucose 128 H Calcium 10.2 Magnesium 1.4 L Total Bilirubin 1.8 H AST 156 H D ALT 56 Alkaline Phosphatase 154 H Troponin I < 0.01 NT-Pro-B Natriuret Pep 79.9 Total Protein 9.1 H Albumin 5.1 H Globulin 4.0 Albumin/Globulin Ratio 1.3 Lipase Urine Color Urine Appearance Urine pH Ur Specific [place] Urine Protein Urine Glucose (UA) Urine Ketones Urine Blood Urine Nitrate Urine Bilirubin Urine Urobilinogen Ur Leukocyte Esterase 08/11/18 08/11/18 19:44 23:11 WBC RBC Hgb Hct MCV MCH MCHC RDW Plt Count MPV Neut % (Auto) Lymph % (Auto) Day % (Auto) Eos % (Auto) Baso % (Auto) Lymph # (Auto) Day # (Auto) Eos # (Auto) Baso # (Auto) Absolute Neuts (auto) D-Dimer, Quantitative Sodium Potassium Chloride Carbon Dioxide Anion Gap BUN Creatinine Est GFR ( Amer) Est GFR (Non-Af Amer) Random Glucose Calcium Magnesium Total Bilirubin AST ALT Alkaline Phosphatase Troponin I NT-Pro-B Natriuret Pep Total Protein Albumin Globulin Albumin/Globulin Ratio Lipase 753 H Urine Color Yellow Urine Appearance Clear Urine pH 6.0 Ur Specific [place] 1.015 Urine Protein Negative Urine Glucose (UA) Negative Urine Ketones Negative Urine Blood Negative Urine Nitrate Negative Urine Bilirubin Negative Urine Urobilinogen 0.2 Ur Leukocyte Esterase Negative Assessment & Plan - Assessment and Plan (Free Text) Plan: 37 year old male with past medical history of HTN, pancreatitis, and alcohol abuse presents with acute pancreatitis. CT abomen/Pelvis demonstrates acute pancreatitis along with proctocolitis. Will obtain GI consult and start the patient empirically on antibiotics. -Acute pancreatitis 1 banana bag, then NS @ 150 Morphine for pain control Lipase 7[address] NPO [address] GI consult. Dr. Mckeon -Alcohol withdrawal/Alcohol abuse Banana Bag Ativan Thiamine, Folate, Multivitamin Counseled on alcohol cessation -Proctocolitis GI consult Ciprofloxacin/Flagyl Fecal leukocytes Stool culture Lactoferrin -Transaminitis Hx of hepatic steatosis and alcohol abuse Recheck in AM Hepatitis panel negative last year -HTN Continue Amlodipine and Losartan Hydralazine PRN -Prophylaxis SCDs Protonix Miranda, PGY-3 <Phil Zamorano - Last Filed: 08/12/18 01:41> Results - Vital Signs Recent Vital Signs: Last Vital Signs Temp 98.4 F 08/11/18 19:32 Pulse 106 H 08/12/18 00:14 Resp 17 08/12/18 00:14 BP 145/93 H 08/12/18 00:14 Pulse Ox 97 08/12/18 00:14 - Labs Result Diagrams: 08/11/18 19:44 08/11/18 19:44 Labs: Laboratory Results - last 24 hr 08/11/18 08/11/18 08/11/18 19:44 19:44 19:44 WBC 6.7 D RBC 4.53 Hgb 13.4 L D Hct 37.7 L MCV 83.2 MCH 29.6 MCHC 35.5 RDW 13.9 Plt Count 331 MPV 9.7 Neut % (Auto) 79.7 H Lymph % (Auto) 14.7 L Day % (Auto) 5.1 Eos % (Auto) 0.1 L Baso % (Auto) 0.4 Lymph # (Auto) 1.0 L Day # (Auto) 0.3 Eos # (Auto) 0.0 Baso # (Auto) 0.03 Absolute Neuts (auto) 5.36 D-Dimer, Quantitative 336 H Sodium 138 Potassium 3.6 Chloride 99 Carbon Dioxide 25 Anion Gap 17 BUN 10 Creatinine 0.9 Est GFR ( Amer) > 60 Est GFR (Non-Af Amer) > 60 Random Glucose 128 H Calcium 10.2 Magnesium 1.4 L Total Bilirubin 1.8 H AST 156 H D ALT 56 Alkaline Phosphatase 154 H Troponin I < 0.01 NT-Pro-B Natriuret Pep 79.9 Total Protein 9.1 H Albumin 5.1 H Globulin 4.0 Albumin/Globulin Ratio 1.3 Lipase Urine Color Urine Appearance Urine pH Ur Specific [place] Urine Protein Urine Glucose (UA) Urine Ketones Urine Blood Urine Nitrate Urine Bilirubin Urine Urobilinogen Ur Leukocyte Esterase 08/11/18 08/11/18 19:44 23:11 WBC RBC Hgb Hct MCV MCH MCHC RDW Plt Count MPV Neut % (Auto) Lymph % (Auto) Day % (Auto) Eos % (Auto) Baso % (Auto) Lymph # (Auto) Day # (Auto) Eos # (Auto) Baso # (Auto) Absolute Neuts (auto) D-Dimer, Quantitative Sodium Potassium Chloride Carbon Dioxide Anion Gap BUN Creatinine Est GFR ( Amer) Est GFR (Non-Af Amer) Random Glucose Calcium Magnesium Total Bilirubin AST ALT Alkaline Phosphatase Troponin I NT-Pro-B Natriuret Pep Total Protein Albumin Globulin Albumin/Globulin Ratio Lipase 753 H Urine Color Yellow Urine Appearance Clear Urine pH 6.0 Ur Specific [place] 1.015 Urine Protein Negative Urine Glucose (UA) Negative Urine Ketones Negative Urine Blood Negative Urine Nitrate Negative Urine Bilirubin Negative Urine Urobilinogen 0.2 Ur Leukocyte Esterase Negative Attending/Attestation - Attestation I have personally seen and examined this patient.: Yes I have fully participated in the care of the patient.: Yes I have reviewed all pertinent clinical information: Yes
[2018-08-12] MEDS: metroNIDAZOLE IV 500 mg/100 ml 500 MG/100 ML BAG IVPB SCH ×4 (00:11→21:29)
[2018-08-12] MEDS: Morphine 4 mg/ml ISec IVP PRN ×5 (00:44→19:23)
[2018-08-12] MEDS ORDERED: Pneumococcal 23-Valent Vaccine IM ONE (03:31)
[2018-08-12] MEDS ORDERED: Influenza Vaccine 60 mcg/0.5 mL SYR (4YR UP) IM ONE (03:31)
[2018-08-12] MEDS ORDERED: Sodium Chloride 0.9% 1,000 ML IV SCH ×2 (06:30)
[2018-08-12 07:36] LABS: HEMOGLOBIN 11.5 g/dL (14.0-18.0); MEAN CELL VOLUME 84.7 fl (80.0-105.0); MEAN CORPUSCULAR HEMOGLOBIN 28.8 pg (25.0-35.0); MEAN PLATELET VOLUME 9.2 fl (7.0-11.0); RBC 3.99 10^6/uL (3.5-6.1); RED CELL DISTRIBUTION WIDTH 13.9 % (11.5-14.5); WHITE BLOOD COUNT 5.7 10^3/uL (4.5-11.0)
[2018-08-12 07:54] LABS: ALB/GLOB RATIO 1.3 (1.1-1.8); ALBUMIN 4.3 g/dL (3.0-4.8); ALT/SGPT 93 U/L (7-56); AST/SGOT 401 U/L (17-59); BLOOD UREA NITROGEN 5 mg/dL (7-21); CALCIUM 9.1 mg/dL (8.4-10.5); GFR NON-AFRICAN AMERICAN > 60
--- NOTE | 2018-08-12 08:25 | RAD ---
Date of service: 08/11/2018 HISTORY: chest pain COMPARISON: 07/17/2018 FINDINGS: LUNGS: No active pulmonary disease. PLEURA: No significant pleural effusion identified, no pneumothorax apparent. CARDIOVASCULAR: No aortic atherosclerotic calcification present. Normal cardiac size. No pulmonary vascular congestion. OSSEOUS STRUCTURES: No significant abnormalities. VISUALIZED UPPER ABDOMEN: Normal. OTHER FINDINGS: None. IMPRESSION: No active disease.
[2018-08-12] MEDS ORDERED: Potassium Chloride 20 mEq ER Tab PO ONE (08:48)
--- NOTE | 2018-08-12 09:02 | CT ---
Date of service: 08/11/2018 PROCEDURE: CT Abdomen and Pelvis with contrast HISTORY: h/o pancreatitis w/ abdominal pain COMPARISON: 07/02/2018 TECHNIQUE: Contrast dose: 150 mL Omnipaque 350 Radiation dose: Total exam DLP = 1014.35 mGy-cm. This CT exam was performed using one or more of the following dose reduction techniques: Automated exposure control, adjustment of the mA and/or kV according to patient size, and/or use of iterative reconstruction technique. FINDINGS: LOWER THORAX: Unremarkable. LIVER: Hepatomegaly diffusely diminished attenuation consistent with fatty infiltration. Smooth contour. No biliary dilatation. No mass. GALLBLADDER AND BILE DUCTS: Cholecystectomy PANCREAS: Hazy increased attenuation of the peripancreatic fat consistent with acute pancreatitis. No gilbert fluid collection. No evidence of pancreatic necrosis or hemorrhagic pancreatitis. No pancreatic mass or pancreatic ductal dilatation appreciated. SPLEEN: Unremarkable. ADRENALS: Unremarkable. No mass. KIDNEYS AND URETERS: Unremarkable. No hydronephrosis. No solid mass. VASCULATURE: Unremarkable. No aortic aneurysm. No aortic atherosclerotic calcification or mural plaque present. BOWEL: Evidence of prior gastric surgery, possibly gastric bypass surgery. There is diffuse mural thickening of the rectum consistent with nonspecific proctitis the remainder of the colon is unremarkable. Both infectious and inflammatory etiologies must be considered. No bowel obstruction. No other abnormal bowel loops. APPENDIX: Not identified. PERITONEUM: Unremarkable. No free fluid. No free air. LYMPH NODES: Unremarkable. No enlarged lymph nodes. BLADDER: Poorly distended. No gross abnormality. REPRODUCTIVE: Normal prostate BONES: No acute fracture. OTHER FINDINGS: None. IMPRESSION: Findings consistent with acute uncomplicated pancreatitis. Acute proctitis common nonspecific. Status post gastric bypass. Hepatomegaly with fatty infiltration. Status post cholecystectomy The preliminary findings for this examination were reported by [facility] at 10:22 p.m. on 08/11/2018. There is concurrence of this report with the preliminary findings.
[2018-08-12] MEDS: Multivitamin With Minerals Tab PO SCH (09:13)
[2018-08-12 10:29] LABS: BARBITURATES, UR NEGATIVE (NEGATIVE)
[2018-08-12 10:31] LABS: BENZODIAZEPINES, UR NEGATIVE (NEGATIVE); OPIATES, UR POSITIVE (NEGATIVE); PHENCYCLIDINE, UR NEGATIVE (NEGATIVE)
--- NOTE | 2018-08-12 11:27 | CON ---
DATE: 08/12/2018 GASTROENTEROLOGY CONSULTATION REQUESTING PHYSICIAN: Dr. Brumfield REASON FOR CONSULT: I have been asked to see this 37-year-old male, alcoholic, with a history of alcohol-induced pancreatitis, who had 5 shots of Cognac on the night prior to admission, who comes to the hospital with abdominal pain. He denies any nausea, vomiting, fevers or chills. In the emergency room, his serum lipase was elevated. The patient also admits to one day of diarrhea. He denies any rectal bleeding. CT scan of the abdomen and pelvis performed in the emergency room shows some mild streaking around the pancreas and some mural thickening of the rectum. Again, he denies any rectal bleeding, vomiting. He admits to some nausea. PAST MEDICAL HISTORY: Notable for recurrent pancreatitis, alcohol abuse, hypertension. PAST SURGICAL HISTORY: Notable for cholecystectomy, gastric bypass, appendectomy. FAMILY HISTORY: Notable for hypertension. SOCIAL HISTORY: The patient is an alcoholic. He drinks 5-6 glasses of Cognac on nearly a daily basis. He denies cigarette smoking. REVIEW OF SYSTEMS: Fourteen-point review of systems is notable for abdominal pain, diarrhea. MEDICATIONS AT HOME: Include atenolol, losartan, omeprazole and amlodipine. PHYSICAL EXAMINATION: GENERAL: Obese male lying in bed, in no acute distress. VITAL SIGNS: Reveal a temperature of 98.8, blood pressure 150/110, heart rate of 89. HEENT: Reveal sclerae to be white, conjunctivae pink. Oral mucosa is moist. NECK: Supple. CHEST: Reveals lungs to be clear. HEART: Exam reveals regular rate and rhythm. ABDOMEN: Obese, soft. Mild tenderness to deep palpation. No rebound, no guarding. EXTREMITIES: Show no edema. LABORATORY DATA: Reveal white blood cell count 5.7, hemoglobin 11.5. Chemistries reveal total bilirubin 2.6, AST 401, ALT 93, alkaline phosphatase of 132, serum lipase of 753. IMPRESSION: A 37-year-old male with alcohol abuse, abdominal pain, nausea, one day of diarrhea with an elevated lipase of 753. I suspect that most of his abdominal pain is secondary to alcohol-induced gastritis. The peripancreatic streaking is unchanged or less from a prior exam. There is also mural thickening of the rectum to suggest proctitis. RECOMMENDATIONS: 1. Keep n.p.o. 2. Continue IV Protonix. 3. Check stool for C&S, O&P, C. diff and fecal leukocytes. Thank you. Herman Mckeon MD
--- NOTE | 2018-08-12 12:12 | CARD ---
APPROVED REPORT Date of service: 08/11/2018 EKG Measurement Heart [id number] <Conclusion> Sinus tachycardia Voltage criteria for left ventricular hypertrophy T wave abnormality, consider inferolateral ischemia Abnormal ECG
[2018-08-12] MEDS: cefTRIAXone 1 gm 1 GM/100 ML BAG IVPB SCH (13:42)
--- NOTE | 2018-08-12 15:52 | US ---
HISTORY: Leg pain and swelling. Evaluate for DVT PHYSICIAN(S): Moustapha Sena MD. TECHNIQUE: Duplex sonography and color-flow Doppler with graded compression were used to evaluate the deep venous systems of both lower extremities. FINDINGS: The visualized deep venous systems of both lower extremities are sonographically normal and compressible. Normal wave forms and augmentation are seen. There is no sonographic evidence for deep venous thrombosis in the visualized segments of both lower extremities. IMPRESSION: No sonographic evidence for deep venous thrombosis in the visualized segments of both lower extremities.
[2018-08-13] MEDS: Morphine 4 mg/ml ISec IVP PRN ×3 (01:19→10:39)
[2018-08-13] MEDS: metroNIDAZOLE IV 500 mg/100 ml 500 MG/100 ML BAG IVPB SCH ×3 (05:24→21:48)
[2018-08-13 07:06] LABS: HEMOGLOBIN 10.7 g/dL (14.0-18.0); MEAN CELL VOLUME 85.1 fl (80.0-105.0); MEAN CORPUSCULAR HGB CONC 34.1 g/dl (31.0-37.0); MEAN PLATELET VOLUME 9.7 fl (7.0-11.0); RBC 3.69 10^6/uL (3.5-6.1); RED CELL DISTRIBUTION WIDTH 13.6 % (11.5-14.5); WHITE BLOOD COUNT 6.3 10^3/uL (4.5-11.0)
--- NOTE | 2018-08-13 07:47 | CP.PCM.PN ---
<Jose Campbell - Last Filed: 08/13/18 15:17> Subjective - Date & Time of Evaluation Date of Evaluation: 08/13/18 Time of Evaluation: 07:47 - Subjective Subjective: PGY1 Progress note for Dr. Brumfield Patient was seen and evaluated at bedside this morning. No acute events overnight. Patient has no new complaints. Patient denies headache, dizziness, chest pain, shortness of breath, abdominal pain, dysuria, numbness/tingling in l ower extremities, nausea, vomiting, fever, and/or chills. Of note, Patient states he continues to have pain and has been requiring morphine 2mg PO Q4H. Patient is currently on liquid diet. Objective - Vital Signs/Intake and Output Vital Signs (last 24 hours): Temp Pulse Resp BP Pulse Ox 98.5 F 88 19 145/107 H 96 08/12/18 21:43 08/12/18 23:46 08/12/18 21:43 08/12/18 23:46 08/12/18 21:43 Intake and Output: 08/13/18 08/13/18 06:59 18:59 Intake Total 420 Balance 420 - Medications Medications: Current Medications Amlodipine Besylate (Norvasc) 10 mg PO DAILY [facility] Last Admin: 08/12/18 05:54 Dose: 10 mg Folic Acid (Folic Acid) 1 mg PO DAILY [facility] Last Admin: 08/12/18 09:13 Dose: 1 mg Metronidazole (Flagyl) 500 mg in 100 mls @ 100 mls/hr IVPB Q8 SHAILA; Protocol Last Admin: 08/13/18 05:24 Dose: 100 mls/hr Ceftriaxone Sodium (Rocephin 1 Gram Ivpb) 1 gm in 100 mls @ 100 mls/hr IVPB DAILY [facility]; Protocol Last Admin: 08/12/18 13:42 Dose: 100 mls/hr Lorazepam (Ativan) 1 mg IVP Q4H PRN; Protocol PRN Reason: Symptoms of alcohol withdrawl Last Admin: 08/13/18 04:17 Dose: 1 mg Losartan Potassium (Cozaar) 100 mg PO DAILY [facility] Last Admin: 08/12/18 05:54 Dose: 100 mg Morphine Sulfate (Morphine) 2 mg IVP Q4H PRN PRN Reason: Pain, moderate (4-7) Last Admin: 08/13/18 05:23 Dose: 2 mg Multivitamins/Minerals (Therapeutic-M Tab) 1 tab PO 0800 [facility] Last Admin: 08/12/18 09:13 Dose: 1 tab Ondansetron HCl (Zofran Inj) 4 mg IVP Q4H PRN PRN Reason: Nausea/Vomiting Last Admin: 08/12/18 03:25 Dose: 4 mg Pantoprazole Sodium (Protonix Inj) 40 mg IVP DAILY [facility] Last Admin: 08/12/18 09:12 Dose: 40 mg Thiamine HCl (Vitamin B1 Tab) 50 mg PO DAILY [facility] Last Admin: 08/12/18 09:13 Dose: 50 mg - Labs Labs: 08/13/18 06:45 08/12/18 07:15 - Additional Findings Additional findings: - Constitutional Appears: Non-toxic, No Acute Distress - Head Exam Head Exam: ATRAUMATIC, NORMAL INSPECTION, NORMOCEPHALIC - Eye Exam Eye Exam: EOMI, Normal appearance - ENT Exam ENT Exam: Mucous Membranes Moist, Normal Exam - Respiratory Exam Respiratory Exam: Clear to Auscultation Bilateral, NORMAL BREATHING PATTERN - Cardiovascular Exam Cardiovascular Exam: RRR, +S1, +S2 - GI/Abdominal Exam GI & Abdominal Exam: Normal Bowel Sounds, Soft, Tenderness. absent: Distended, Guarding, Rebound Additional comments: Epigastric - Extremities Exam Extremities exam: Positive for: normal inspection. Negative for: pedal edema - Neurological Exam Neurological exam: Alert, CN II-XII Intact, Oriented x3 - Psychiatric Exam Psychiatric exam: Normal Affect, Normal Mood - Skin Skin Exam: Intact, Normal Color, Warm Assessment and Plan - Assessment and Plan (Free Text) Assessment: 37 year old male with past medical history of HTN, pancreatitis, and alcohol abuse presents with acute pancreatitis. CT abomen/Pelvis demonstrates acute pancreatitis along with proctocolitis. GI was consulted. Patient on Rocephin/Flagyl Antibiotics. Nausea/Vomiting secondary to Acute Pancreatitis - Continue LR @150mL/hr - Morphine tapered from 2mg Q4H PRN for severe pain --> Morphing 1m Q4H PRN for Severe pain - Lipase 753 - Advance diet as tolerated; currently on liquid diet - GI consulted (Dr. Mckeon); recommendations appreciated Alcohol withdrawal/Alcohol abuse - Patient asymptomatic - S/P Banana Bag - Ativan 1mg IVP Q4H PRN - Continue Thiamine, Folate, Multivitamin - Counseled extensively on complete alcohol cessation Proctocolitis - GI consulted (Dr. Mckeon); recommendations appreciated - Antibiotics: Rocephin 1gm IVPB daily Flagyl 500mg IVPB Q8 - F/U Fecal leukocytes - F/U Stool culture - F/U Lactoferrin - F/U C-diff - CBC for AM labs Positive D-Dimer on Admission; Rule out DVT - Venous doppler obtained; Negative for DVT bilaterally - Pulmonary Embolism Rule-out Criteria met - Prior CT angiogram 07/17/18 was negative for PE (see report) - Risk of exposure for radiation does not outweigh the benefit due to low clinical suspicion Transaminitis, improving - Hx of hepatic steatosis and alcohol abuse - F/U LFT's on CMP in AM - Hepatitis panel negative last year Hx HTN - Continue Amlodipine and Losartan - Hydralazine PRN Prophylaxis - SCDs - Protonix Patient seen and case discussed with Dr. Brissa Campbell PGY1 <Argelia Brumfield - Last Filed: 08/13/18 17:36> Objective - Vital Signs/Intake and Output Vital Signs (last 24 hours): Temp Pulse Resp BP Pulse Ox 98.8 F 89 20 139/104 H 96 08/13/18 13:59 08/13/18 13:59 08/13/18 13:59 08/13/18 13:59 08/13/18 13:59 Intake and Output: 08/13/18 08/13/18 06:59 18:59 Intake Total 420 Balance 420 - Medications Medications: Current Medications Amlodipine Besylate (Norvasc) 10 mg PO DAILY [facility] Last Admin: 08/13/18 10:37 Dose: 10 mg Folic Acid (Folic Acid) 1 mg PO DAILY [facility] Last Admin: 08/13/18 10:32 Dose: 1 mg Metronidazole (Flagyl) 500 mg in 100 mls @ 100 mls/hr IVPB Q8 [facility]; Protocol Last Admin: 08/13/18 15:59 Dose: 100 mls/hr Ceftriaxone Sodium (Rocephin 1 Gram Ivpb) 1 gm in 100 mls @ 100 mls/hr IVPB DAILY [facility]; Protocol Last Admin: 08/13/18 10:40 Dose: 100 mls/hr Lactated Ringer's (Lactated Ringer's) 1,000 mls @ 150 mls/hr IV .Q6H40M [facility] Last Admin: 08/13/18 10:26 Dose: 150 mls/hr Lorazepam (Ativan) 1 mg IVP Q4H PRN; Protocol PRN Reason: Symptoms of alcohol withdrawl Last Admin: 08/13/18 17:15 Dose: 1 mg Losartan Potassium (Cozaar) 100 mg PO DAILY [facility] Last Admin: 08/13/18 10:36 Dose: 100 mg Morphine Sulfate (Morphine) 1 mg IVP Q4H PRN PRN Reason: Pain, moderate (4-7) Last Admin: 08/13/18 15:58 Dose: 1 mg Multivitamins/Minerals (Therapeutic-M Tab) 1 tab PO 0800 [facility] Last Admin: 08/13/18 10:40 Dose: 1 tab Ondansetron HCl (Zofran Inj) 4 mg IVP Q4H PRN PRN Reason: Nausea/Vomiting Last Admin: 08/13/18 10:39 Dose: 4 mg Pantoprazole Sodium (Protonix Inj) 40 mg IVP DAILY [facility] Last Admin: 08/13/18 10:40 Dose: 40 mg Thiamine HCl (Vitamin B1 Tab) 50 mg PO DAILY [facility] Last Admin: 08/13/18 10:39 Dose: 50 mg - Labs Labs: 08/13/18 06:45 08/13/18 06:45 Attending/Attestation - Attestation I have personally seen and examined this patient.: Yes I have fully participated in the care of the patient.: Yes I have reviewed all pertinent clinical information, including history, physical exam and plan: Yes Notes (Text): 08/13/18 17:34 37 year old male with past medical history of hypertension, pancreatitis and alcohol abuse who presented with complaint of nausea/vomiting and abdominal pain. Found to have acute pancreatitis and proctocolitis on CT scan. GI is following. Continue with iv fluids and antibiotics. Advance diet as tolerated. Counselled on alcohol abstinence. Monitor transaminitis; likely secondary to c hronic ETOH abuse. Replete and repeat lytes. Argelia Brumfield MD Hospitalist.
[2018-08-13 07:59] LABS: ALB/GLOB RATIO 1.3 (1.1-1.8); ALBUMIN 4.2 g/dL (3.0-4.8); ALT/SGPT 93 U/L (7-56); AST/SGOT 187 U/L (17-59); BLOOD UREA NITROGEN 3 mg/dL (7-21); GFR NON-AFRICAN AMERICAN > 60
[2018-08-13] MEDS ORDERED: Magnesium Sulfate 1 gm in D5W 1 GM/100 ML BAG IVPB ONE (08:56)
[2018-08-13] MEDS ORDERED: Lactated Ringer's 1,000 ML IV SCH (09:00)
--- NOTE | 2018-08-13 09:03 | PN ---
DATE: 08/13/2018 SUBJECTIVE: The patient states he had a bad night with recurrent abdominal pain. He denies any nausea and vomiting. OBJECTIVE: VITAL SIGNS: Reveal temperature of 98.5, blood pressure 145/107, heart rate of 88. HEENT: Reveal sclerae to be white. Conjunctivae pink. NECK: Supple. CHEST: Lungs are clear. HEART: Reveals a regular rate and rhythm. ABDOMEN: Soft. Mild diffuse tenderness. No rebound, no guarding. EXTREMITIES: Show no edema. Toxicology screen was positive for opiates. Chemistries reveal AST down to 187, ALT 93, alkaline phosphatase of 130, hemoglobin of 10.7. IMPRESSION: This is a 37-year-old male alcoholic with drug seeking behavior with history of pancreatitis, fatty liver secondary to alcoholism with recurrent abdominal pain.. Again, he is seeking opiate pain medications [id number]. RECOMMENDATIONS: 1. Would withhold opiates and try possibly Toradol for his pain. 2. Keep n.p.o. for now. Consider advancing a clear liquid diet if pain resolves. Herman Mckeon MD
[2018-08-13] MEDS: cefTRIAXone 1 gm 1 GM/100 ML BAG IVPB SCH (10:40)
[2018-08-13] MEDS: Multivitamin With Minerals Tab PO SCH (10:40)
[2018-08-13] MEDS ORDERED: Morphine 4 mg/ml ISec IVP PRN (15:00)
[2018-08-14] MEDS: metroNIDAZOLE IV 500 mg/100 ml 500 MG/100 ML BAG IVPB SCH ×2 (05:42→14:19)
[2018-08-14 07:26] LABS: HEMOGLOBIN 10.5 g/dL (14.0-18.0); MEAN CELL VOLUME 84.5 fl (80.0-105.0); MEAN CORPUSCULAR HGB CONC 34.3 g/dl (31.0-37.0); MEAN PLATELET VOLUME 9.3 fl (7.0-11.0); RBC 3.62 10^6/uL (3.5-6.1); RED CELL DISTRIBUTION WIDTH 13.6 % (11.5-14.5); WHITE BLOOD COUNT 4.7 10^3/uL (4.5-11.0)
[2018-08-14 07:51] LABS: ALB/GLOB RATIO 1.2 (1.1-1.8); ALBUMIN 4.1 g/dL (3.0-4.8); ALT/SGPT 65 U/L (7-56); AST/SGOT 106 U/L (17-59); BLOOD UREA NITROGEN 5 mg/dL (7-21); CALCIUM 9.3 mg/dL (8.4-10.5); GFR NON-AFRICAN AMERICAN > 60
[2018-08-14] MEDS: Multivitamin With Minerals Tab PO SCH (10:44)
[2018-08-14] MEDS: cefTRIAXone 1 gm 1 GM/100 ML BAG IVPB SCH (10:47)
[2018-08-14] MEDS ORDERED: Potassium Chloride 20 mEq ER Tab PO SCH (12:30)
--- NOTE | 2018-08-14 14:58 | PN ---
DATE: 08/14/2018 SUBJECTIVE: The patient feels better. Abdominal pain is much less. He tolerated a clear liquid diet. PHYSICAL EXAMINATION: VITAL SIGNS: Temperature of 98.8, blood pressure 131/92, heart rate of 83. HEENT: Sclerae to be white. Conjunctivae pink. NECK: Supple. CHEST: Lungs are clear. HEART: Regular rate and rhythm. ABDOMEN: Soft, obese, nontender. EXTREMITIES: No edema. LABORATORY DATA: Potassium at 3.2, AST down to 106, ALT down to 65. CBC reveals white blood cell count 4.7, hemoglobin 10.5. IMPRESSION: A 37-year-old male with recurrent abdominal pain, alcoholism, alcoholic steatosis of the liver with opiate-seeking behavior, admitted with elevated lipase. I suspect that his abdominal pain is mostly from alcohol-induced gastritis. RECOMMENDATIONS: We will advance the patient to a soft, low-fat diet. If tolerated, the patient can be discharged home on a PPI. The patient has also been instructed on complete alcohol abstinence, as he has had multiple [facility] admissions recently for alcohol-related complications. Herman Mckeon MD
[2018-08-14 16:18] VITALS: BP 139/102; PULSE 87; RESP 18; TEMP 98.2; O2SAT 97
--- NOTE | 2018-08-14 18:53 | CP.PCM.DIS ---
<Elke Lebron - Last Filed: 08/14/18 18:48> Provider - Provider Date of Admission: 08/11/18 22:59 Attending physician: Argelia Brumfield MD Primary care physician: Eulalia Yang MD Consults: 08/11/18 23:25 Gastroenterology Consult Stat Comment: Consulting Provider: Herman Mckeon Consulting Physician: Herman Mckeon Reason for Consult: Proctocolitis/Pancreatitis Time Spent in preparation of Discharge (in minutes): 60 Diagnosis - Discharge Diagnosis (1) Pancreatitis Status: Acute Priority: High Hospital Course - Lab Results Lab Results: Most Recent Lab Values WBC 4.7 10^3/uL (4.5-11.0) D 08/14/18 07:00 RBC 3.62 10^6/uL (3.5-6.1) 08/14/18 07:00 Hgb 10.5 g/dL (14.0-18.0) L 08/14/18 07:00 Hct 30.6 % (42.0-52.0) L 08/14/18 07:00 MCV 84.5 fl (80.0-105.0) 08/14/18 07:00 MCH 29.0 pg (25.0-35.0) 08/14/18 07:00 MCHC 34.3 g/dl (31.0-37.0) 08/14/18 07:00 RDW 13.6 % (11.5-14.5) 08/14/18 07:00 Plt Count 197 10^3/uL (120.0-450.0) 08/14/18 07:00 MPV 9.3 fl (7.0-11.0) 08/14/18 07:00 Neut % (Auto) 79.7 % (50.0-68.0) H 08/11/18 19:44 Lymph % (Auto) 14.7 % (22.0-35.0) L 08/11/18 19:44 [place] % (Auto) 5.1 % (1.0-6.0) 08/11/18 19:44 Eos % (Auto) 0.1 % (1.5-5.0) L 08/11/18 19:44 Baso % (Auto) 0.4 % (0.0-3.0) 08/11/18 19:44 Lymph # (Auto) 1.0 (1.2-3.4) L 08/11/18 19:44 [place] # (Auto) 0.3 (0.1-0.6) 08/11/18 19:44 Eos # (Auto) 0.0 (0.0-0.7) 08/11/18 19:44 Baso # (Auto) 0.03 K/mm3 (0.0-2.0) 08/11/18 19:44 Absolute Neuts (auto) 5.36 (1.4-6.5) 08/11/18 19:44 D-Dimer, Quantitative 336 ng/mlDDU (0-243) H 08/11/18 19:44 Sodium 138 mmol/L (132-148) 08/14/18 07:00 Potassium 3.2 mmol/L (3.6-5.0) L 08/14/18 07:00 Chloride 104 mmol/L (98-107) 08/14/18 07:00 Carbon Dioxide 27 mmol/L (21-33) 08/14/18 07:00 Anion Gap 11 (10-20) 08/14/18 07:00 BUN 5 mg/dL (7-21) L 08/14/18 07:00 Creatinine 0.8 mg/dl (0.8-1.5) 08/14/18 07:00 Est GFR ( Amer) > 60 08/14/18 07:00 Est GFR (Non-Af Amer) > 60 08/14/18 07:00 Random Glucose 90 mg/dL (70-110) 08/14/18 07:00 Calcium 9.3 mg/dL (8.4-10.5) 08/14/18 07:00 Phosphorus 4.3 mg/dL (2.5-4.5) 08/14/18 07:00 Magnesium 2.1 mg/dL (1.7-2.2) 08/14/18 07:00 Total Bilirubin 1.3 mg/dL (0.2-1.3) 08/14/18 07:00 AST 106 U/L (17-59) H D 08/14/18 07:00 ALT 65 U/L (7-56) H 08/14/18 07:00 Alkaline Phosphatase 113 U/L (38-126) 08/14/18 07:00 Troponin I < 0.01 ng/mL 08/11/18 19:44 NT-Pro-B Natriuret Pep 79.9 pg/mL (0-450) 08/11/18 19:44 Total Protein 7.4 g/dL (5.8-8.3) 08/14/18 07:00 Albumin 4.1 g/dL (3.0-4.8) 08/14/18 07:00 Globulin 3.3 gm/dL 08/14/18 07:00 Albumin/Globulin Ratio 1.2 (1.1-1.8) 08/14/18 07:00 Lipase 753 U/L (23-300) H 08/11/18 19:44 Urine Color Yellow (YELLOW) 08/11/18 23:11 Urine Appearance Clear (CLEAR) 08/11/18 23:11 Urine pH 6.0 (4.7-8.0) 08/11/18 23:11 Ur Specific [place] 1.015 (1.005-1.035) 08/11/18 23:11 Urine Protein Negative mg/dL (<30 mg/dL) 08/11/18 23:11 Urine Glucose (UA) Negative mg/dL (NEGATIVE) 08/11/18 23:11 Urine Ketones Negative mg/dL (NEGATIVE) 08/11/18 23:11 Urine Blood Negative (NEGATIVE) 08/11/18 23:11 Urine Nitrate Negative (NEGATIVE) 08/11/18 23:11 Urine Bilirubin Negative (NEGATIVE) 08/11/18 23:11 Urine Urobilinogen 0.2 E.U./dL (<1 E.U./dL) 08/11/18 23:11 Ur Leukocyte Esterase Negative Benigno/uL (NEGATIVE) 08/11/18 23:11 Urine Opiates Screen Positive (NEGATIVE) H 08/12/18 09:50 Urine Methadone Screen Negative (NEGATIVE) 08/12/18 09:50 Ur Barbiturates Screen Negative (NEGATIVE) 08/12/18 09:50 Ur Phencyclidine Scrn Negative (NEGATIVE) 08/12/18 09:50 Ur Amphetamines Screen Negative (NEGATIVE) 08/12/18 09:50 U Benzodiazepines Scrn Negative (NEGATIVE) 08/12/18 09:50 U Oth Cocaine Metabols Negative (NEGATIVE) 08/12/18 09:50 U Cannabinoids Screen Negative (NEGATIVE) 08/12/18 09:50 Alcohol, Quantitative < 10 mg/dL (0-10) 08/12/18 08:30 - Hospital Course Hospital Course: Elke Lebron, PGY-1, Internal Medicine Discharge Summary for Dr. Brumfield 37 year old male with past medical history of HTN, pancreatitis, and alcohol abuse presented to the hospital 3 days ago for worsening abdominal pain. Patient stated he drank 5-6 drink on the day prior to presentation. Pain was located in the epigastric region and radiated to the back. Pain was described as sharp in nature and then become constant. Patient reported using tylenol for pain, but with no relief. Patient noted multiple episodes of non-bloody diarrhea, nausea & vomiting starting that morning. Patient had 2 other admissions over the past month for acute pancreatitis. Lipase on admission was 753. AST on admission was 156. CT scan of Abdomen on 08/11 showed peripancreatic stranding, alcoholic steatosis of liver and mural thickening suggestive of Proctitis. Patient was treated for acute pancreatitis with Banana Bag, NS, Morphine for pain control and was made NPO. Patient was treated for Alcohol withdrawal with Banana Bag, Ativan, Thiamine, Folate, Multivitamin & counseled on alcohol cessation. Patient was treated for Proctitis with Ciprofloxacin 1gm IVPB QD & Flagyl 500mg IVPB Q8H. GI consult on 08/12 suggested alcohol-induced gastritis and recommended keeping patient on NPO, IV Protonix. On labwork, Patient showed positive D-dimer with value of 401. Venous Ultrasound Doppler for extremeity on 08/12 came back negative for DVT bilaterally. Prior CT angiogram on 07/17/18 was negative for PE. Patient was treated for hypertension with Amlodipine 10mg daily and Losartan 100mg daily and Hydralazine PRN On 08/13 patient continued to complain of pain despite requiring morphine 2mg PO Q4H. Patient was given Toradol 15mg IVP Q6 PRN. Patient course improved through out this visit. Pain gradually decreased to 4/10 and patient was able to advanced to liquid diet on morning of 08/13 which he tolerated. LFTs trended up to 401 on 08/13 but then dropped down to 106 on 08/14. Today, patient's diet was progressed to altered GI hepatic diet, which patient tolerated well. Patient was stable and ready for discharge. He was told to follow up with PCP within 1-2 weeks. He was told to take home medications as prescribed. He was counseled extensively on complete alcohol abstinence due to multiple alcohol- related admissions to [facility]. In addition, he was told to return to the emergency department if he had any recurring or new concerning symptoms. - Date & Time of H&P Date of H&P: 08/12/18 Time of H&P: 00:07 Discharge Exam - Head Exam Head Exam: ATRAUMATIC, NORMAL INSPECTION, NORMOCEPHALIC - Eye Exam Eye Exam: EOMI, PERRL - Respiratory Exam Respiratory Exam: Clear to PA & Lateral, UNREMARKABLE - Cardiovascular Exam Cardiovascular Exam: REGULAR RHYTHM, RRR - GI/Abdominal Exam GI & Abdominal Exam: Normal Bowel Sounds, Soft, Tenderness - Extremities Exam Extremities exam: full ROM - Neurological Exam Neurological exam: Alert, CN II-XII Intact, Oriented x3 - Psychiatric Exam Psychiatric exam: Normal Affect, Normal Mood - Skin Skin Exam: Dry, Intact, Normal Color Discharge Plan - Discharge Medications Prescriptions: Folic Acid 1 mg PO DAILY 30 Days #30 tab Multimineral/Multivitamin [Therapeutic-M Tab] 1 tab PO 0800 30 Days #30 tab Thiamine [Vitamin B1 Tab] 50 mg PO DAILY 30 Days #30 tab - Follow Up Plan Condition: GOOD Disposition: HOME/ ROUTINE Instructions: Pancreatitis, Alcohol Use - When Is Drinking a Problem?, Chemult Diet, Alcohol Withdrawal Additional Instructions: Please follow up with PCP in 1-2 weeks. Please refrain from alcohol and take all home medications as prescribed. Please return to the emergency department for any new or worsening symptoms. Referrals: Eulalia Yang MD [Primary Care Provider] - <Argelia Brumfield - Last Filed: 08/15/18 08:58> Provider - Provider Date of Admission: 08/11/18 22:59 Attending physician: Argelia Brumfield MD Primary care physician: Eulalia Yang MD Consults: 08/11/18 23:25 Gastroenterology Consult Stat Comment: Consulting Provider: Herman Mckeon Consulting Physician: Herman Mckeon Reason for Consult: Proctocolitis/Pancreatitis Hospital Course - Lab Results Lab Results: Most Recent Lab Values WBC 4.7 10^3/uL (4.5-11.0) D 08/14/18 07:00 RBC 3.62 10^6/uL (3.5-6.1) 08/14/18 07:00 Hgb 10.5 g/dL (14.0-18.0) L 08/14/18 07:00 Hct 30.6 % (42.0-52.0) L 08/14/18 07:00 MCV 84.5 fl (80.0-105.0) 08/14/18 07:00 MCH 29.0 pg (25.0-35.0) 08/14/18 07:00 MCHC 34.3 g/dl (31.0-37.0) 08/14/18 07:00 RDW 13.6 % (11.5-14.5) 08/14/18 07:00 Plt Count 197 10^3/uL (120.0-450.0) 08/14/18 07:00 MPV 9.3 fl (7.0-11.0) 08/14/18 07:00 Neut % (Auto) 79.7 % (50.0-68.0) H 08/11/18 19:44 Lymph % (Auto) 14.7 % (22.0-35.0) L 08/11/18 19:44 [place] % (Auto) 5.1 % (1.0-6.0) 08/11/18 19:44 Eos % (Auto) 0.1 % (1.5-5.0) L 08/11/18 19:44 Baso % (Auto) 0.4 % (0.0-3.0) 08/11/18 19:44 Lymph # (Auto) 1.0 (1.2-3.4) L 08/11/18 19:44 [place] # (Auto) 0.3 (0.1-0.6) 08/11/18 19:44 Eos # (Auto) 0.0 (0.0-0.7) 08/11/18 19:44 Baso # (Auto) 0.03 K/mm3 (0.0-2.0) 08/11/18 19:44 Absolute Neuts (auto) 5.36 (1.4-6.5) 08/11/18 19:44 D-Dimer, Quantitative 336 ng/mlDDU (0-243) H 08/11/18 19:44 Sodium 138 mmol/L (132-148) 08/14/18 07:00 Potassium 3.2 mmol/L (3.6-5.0) L 08/14/18 07:00 Chloride 104 mmol/L (98-107) 08/14/18 07:00 Carbon Dioxide 27 mmol/L (21-33) 08/14/18 07:00 Anion Gap 11 (10-20) 08/14/18 07:00 BUN 5 mg/dL (7-21) L 08/14/18 07:00 Creatinine 0.8 mg/dl (0.8-1.5) 08/14/18 07:00 Est GFR ( Amer) > 60 08/14/18 07:00 Est GFR (Non-Af Amer) > 60 08/14/18 07:00 Random Glucose 90 mg/dL (70-110) 08/14/18 07:00 Calcium 9.3 mg/dL (8.4-10.5) 08/14/18 07:00 Phosphorus 4.3 mg/dL (2.5-4.5) 08/14/18 07:00 Magnesium 2.1 mg/dL (1.7-2.2) 08/14/18 07:00 Total Bilirubin 1.3 mg/dL (0.2-1.3) 08/14/18 07:00 AST 106 U/L (17-59) H D 08/14/18 07:00 ALT 65 U/L (7-56) H 08/14/18 07:00 Alkaline Phosphatase 113 U/L (38-126) 08/14/18 07:00 Troponin I < 0.01 ng/mL 08/11/18 19:44 NT-Pro-B Natriuret Pep 79.9 pg/mL (0-450) 08/11/18 19:44 Total Protein 7.4 g/dL (5.8-8.3) 08/14/18 07:00 Albumin 4.1 g/dL (3.0-4.8) 08/14/18 07:00 Globulin 3.3 gm/dL 08/14/18 07:00 Albumin/Globulin Ratio 1.2 (1.1-1.8) 08/14/18 07:00 Lipase 753 U/L (23-300) H 08/11/18 19:44 Urine Color Yellow (YELLOW) 08/11/18 23:11 Urine Appearance Clear (CLEAR) 08/11/18 23:11 Urine pH 6.0 (4.7-8.0) 08/11/18 23:11 Ur Specific [place] 1.015 (1.005-1.035) 08/11/18 23:11 Urine Protein Negative mg/dL (<30 mg/dL) 08/11/18 23:11 Urine Glucose (UA) Negative mg/dL (NEGATIVE) 08/11/18 23:11 Urine Ketones Negative mg/dL (NEGATIVE) 08/11/18 23:11 Urine Blood Negative (NEGATIVE) 08/11/18 23:11 Urine Nitrate Negative (NEGATIVE) 08/11/18 23:11 Urine Bilirubin Negative (NEGATIVE) 08/11/18 23:11 Urine Urobilinogen 0.2 E.U./dL (<1 E.U./dL) 08/11/18 23:11 Ur Leukocyte Esterase Negative Benigno/uL (NEGATIVE) 08/11/18 23:11 Urine Opiates Screen Positive (NEGATIVE) H 08/12/18 09:50 Urine Methadone Screen Negative (NEGATIVE) 08/12/18 09:50 Ur Barbiturates Screen Negative (NEGATIVE) 08/12/18 09:50 Ur Phencyclidine Scrn Negative (NEGATIVE) 08/12/18 09:50 Ur Amphetamines Screen Negative (NEGATIVE) 08/12/18 09:50 U Benzodiazepines Scrn Negative (NEGATIVE) 08/12/18 09:50 U Oth Cocaine Metabols Negative (NEGATIVE) 08/12/18 09:50 U Cannabinoids Screen Negative (NEGATIVE) 08/12/18 09:50 Alcohol, Quantitative < 10 mg/dL (0-10) 08/12/18 08:30 Attending/Attestation - Attestation I have personally seen and examined this patient.: Yes I have fully participated in the care of the patient.: Yes I have reviewed all pertinent clinical information, including history, physical exam and plan: Yes Notes (Text): 08/14/18 37 year old male with past medical history of hypertension, pancreatitis and alcohol abuse who presented with complaint of nausea/vomiting and abdominal pain. Found to have acute pancreatitis and proctocolitis on CT scan. He was seen by GI. Symptoms improved with iv fluids and antibiotics. Diet was advanced which he tolerated. He was counselled on alcohol abstinence. He had transaminitis likely secondary to chronic ETOH abuse. Potassium was repleted. Patient is discharged home to follow up with pmd. Counselled on alcohol abstinence. Argelia Brumfield MD Hospitalist.
== END 2018-08-14 18:18 | disposition home or self-care (01) | DRG 204 ==
LOC: ED 19:03 → ERH 22:59 → 5RSO 08-12 01:07
PROVIDERS: ADMIT Hospitalist; ATTEND Internal Medicine
DX: K85.90 Acute pancreatitis without necrosis or infection, unspecified (principal); F10.239 Alcohol dependence with withdrawal, unspecified; K86.1 Other chronic pancreatitis; I10 Essential (primary) hypertension; Z83.3 Family history of diabetes mellitus; Z82.49 Family history of ischemic heart disease and other diseases of the circulatory system; F41.9 Anxiety disorder, unspecified; K29.20 Alcoholic gastritis without bleeding; K76.0 Fatty (change of) liver, not elsewhere classified; K62.89 Other specified diseases of anus and rectum; Z76.5 Malingerer [conscious simulation]; Z90.49 Acquired absence of other specified parts of digestive tract; Z98.84 Bariatric surgery status

== ENCOUNTER 2018-09-12 16:57 | Emergency (ER) | payer MEDICAID, OTHER ==
[2018-09-12 17:17] VITALS: BMI 35.4
[2018-09-12] MEDS ORDERED: Sodium Chloride 0.9% 500 ML IV STA (17:24)
[2018-09-12 17:28] VITALS: RESP 18; TEMP 98.3
--- NOTE | 2018-09-12 17:33 | ED PDOC ---
Arrival/HPI - General Chief Complaint: Abdominal Pain Time Seen by Provider: 09/12/18 17:09 Historian: Patient - History of Present Illness Narrative History of Present Illness (Text): 09/12/18 17:30 A 37 year old male, whose past medical history includes hypertension, pancreatitis, and alcohol abuse, presents to the emergency department complaining of abdomen pain and epigastric pain since earlier today. Patient reports associated headache. Patient reports he wanted to do detox on his own and his primary care doctor told him to go to the Emergency room Patient states he feels an ache in his abdomen. Patient admits to drinking 4-5 drinks 4 hours ago. Patient denies any nausea, vomiting, diarrhea, bleeding, fever, or any other complaints. PMD: Dr. Yang Time/Duration: Other (earlier today) Symptom Onset: Gradual Symptom Course: Unchanged Activities at Onset: Light Context: Home Past Medical History - Provider Review Nursing Documentation Reviewed: Yes - Infectious Disease Hx of Infectious Diseases: None - Cardiac Hx Cardiac Disorders: Yes Hx Hypertension: Yes - Pulmonary Hx Respiratory Disorders: No - Neurological Hx Neurological Disorder: No - HEENT Hx HEENT Disorder: No - Renal Hx Renal Disorder: No - Endocrine/Metabolic Hx Endocrine Disorders: No - Hematological/Oncological Hx Blood Disorders: No - Integumentary Hx Dermatological Disorder: No - Musculoskeletal/Rheumatological Hx Musculoskeletal Disorders: No - Gastrointestinal Hx Gastrointestinal Disorders: Yes Hx Pancreatitis: Yes Other/Comment: gastric bypass sx about 10 yrs ago with 150 lb weight loss - Genitourinary/Gynecological Hx Genitourinary Disorders: No - Psychiatric Hx Psychophysiologic Disorder: Yes Hx Depression: Yes Hx Substance Use: No - Surgical History Hx Appendectomy: Yes Hx Cholecystectomy: Yes Hx Gastric Bypass Surgery: Yes (about 10 yrs ago) - Anesthesia Hx Anesthesia: Yes Hx Anesthesia Reactions: No Hx Malignant Hyperthermia: No Family/Social History - Physician Review Nursing Documentation Reviewed: Yes Family/Social History: No Known Family HX Smoking Status: Never Smoked Hx Alcohol Use: Yes Hx Substance Use: No Allergies/Home Meds Allergies/Adverse Reactions: Allergies ramipril Adverse Reaction (Verified 09/12/18 17:29) ANGIOEDEMA Home Medications: Home Meds Medication Instructions Recorded Confirmed Omeprazole 20 mg PO DAILY 07/04/18 07/17/18 Review of Systems - Physician Review All systems were reviewed & negative as marked: Yes - Review of Systems Gastrointestinal: Abdominal Pain. absent: Diarrhea, Nausea, Vomiting Skin: Other (no bleeding) Neurological: Headache Physical Exam Vital Signs Reviewed: Yes Vital Signs Temp Pulse Resp BP Pulse Ox 09/12/18 17:27 98.3 F 90 18 158/102 H 99 Temperature: Afebrile Blood Pressure: Hypertensive Pulse: Regular Respiratory Rate: Normal Appearance: Positive for: Other (Alcohol on breath) Mental Status: Positive for: Alert and Oriented X 3 - Systems Exam Head: Present: Atraumatic, Normocephalic Pupils: Present: PERRL Extroacular Muscles: Present: EOMI Conjunctiva: Present: Normal Respiratory/Chest: Present: Clear to Auscultation, Good Air Exchange. No: Respiratory Distress, Accessory Muscle Use Abdomen: Present: Tenderness (tenderness to epigastric region with gaurding no rebound) Medical Decision Making ED Course and Treatment: 09/12/18 17:30 Impression: 37 year old male presenting to the emergency room complaining of abdominal pain and requesting alcohol detox program. Plan: -- EKG -- Labs -- CBC -- Chest X-ray -- Ativan -- IV fluids -- Urinalysis -- Reassess and disposition Prior Visits: Notes and results from previous visits were reviewed. Progress Notes: 09/12/18 17:44 EKG: Ordered, reviewed, and independently interpreted the EKG. Rate : 88 BPM Rhythm : NSR Interpretation : LVH, T-waves in inferior lead. Comparison : No change from 08/11/18. 09/12/18 19:10 Discussed with Samreen from [facility]. [phone] who states there will be detox beds tomorrow. Patient was informed that he should go to a detox center and referred him to [facility]. I gave him their direct contact number for tomorrow. He does not want to be evaluated by [facility] today for screening. He is comfortable after medications given today in the ED. No tremors or tongue fasciculations. He does not appear intoxicated nor in withdrawal. Patient will be discharged with close followup. - RAD Interpretation Narrative RAD Interpretations (Text): 09/12/18 18:28 Procedure: Chest X-ray Dictator: Tray Jones Impression: No active disease. No signifcant interval change compared to the prior examinations. Radiology Orders: 09/12/18 17:23 CHEST PORTABLE [RAD] Stat Metal Room Dental Technician: Radiologist - Medication Orders Current Medication Orders: Sodium Chloride (Sodium Chloride 0.9%) 500 mls @ 999 mls/hr IV .Q31M STA Stop: 09/12/18 17:54 Lorazepam (Ativan) 1 mg PO ONCE ONE; Protocol Stop: 09/12/18 17:25 - Scribe Statement The provider has reviewed the documentation as recorded by the Negritaiblondon Pal[place] All medical record entries made by the Scribe were at my direction and personally dictated by me. I have reviewed the chart and agree that the record accurately reflects my personal performance of the history, physical exam, medical decision making, and the department course for this patient. I have also personally directed, reviewed, and agree with the discharge instructions and disposition. Disposition/Present on Arrival - Present on Arrival Any Indicators Present on Arrival: No History of DVT/PE: No History of Uncontrolled Diabetes: No Urinary Catheter: No History of Decub. Ulcer: No History Surgical Site Infection Following: None - Disposition Have Diagnosis and Disposition been Completed?: Yes Diagnosis: Alcoholic gastritis Disposition: HOME/ ROUTINE Disposition Time: 19:52 Patient Plan: Discharge Condition: IMPROVED Discharge Instructions (ExitCare): Gastritis (DC) Additional Instructions: CECELIA QUAN, thank you for letting us take care of you today. Your provider was Fredis Echols DO and you were treated for Alcohol Gastritis. The emergency medical care you received today was directed at your acute symptoms. If you were prescribed any medication, please fill it and take as directed. It may take several days for your symptoms to resolve. Return to the Emergency Department if your symptoms worsen, do not improve, or if you have any other problems. MAKE SURE TO CALL [facility] AT [phone] AT 9AM WHO WILL BE EXPECTING YOUR CALL. Please contact your doctor or call one of the physicians/clinics you have been referred to that are listed on the Patient Visit Information form that is included in your discharge packet. Bring any paperwork you were given at discharge with you along with any medications you are taking to your follow up visit. Our treatment cannot replace ongoing medical care by a primary care provider outside of the emergency department. Thank you for allowing the [facility] team to be part of your care today. If you had an X-Ray or CT scan: A Radiologist will review the ED reading if any change in treatment is needed we will contact you. If you had a blood, urine, or wound culture: It will take several days for the results, if any change in treatment is needed we will contact you. If you had an STI test: It will take 48 hours for the results. Please call after 1 week if you have not heard back. Prescriptions: Famotidine [Pepcid] 20 mg PO DAILY #30 tab Referrals: [facility] Karyn Resantiago, [Non-Staff] - Follow up with primary Forms: writewith Connect (Arabic), WORK NOTE
--- NOTE | 2018-09-12 17:57 | RAD ---
Date of service: 09/12/2018 HISTORY: Abdominal pain. COMPARISON: 08/11/2018. FINDINGS: LUNGS: No active pulmonary disease. PLEURA: No significant pleural effusion identified, no pneumothorax apparent. CARDIOVASCULAR: No atherosclerotic calcification present Normal. OSSEOUS STRUCTURES: No significant abnormalities. VISUALIZED UPPER ABDOMEN: Normal. OTHER FINDINGS: None. IMPRESSION: No active disease. No significant interval change compared to the prior examination(s).
[2018-09-12] MEDS ORDERED: Famotidine 20mg/50ml 20 MG/50 ML BAG IVPB STA (18:05)
[2018-09-12 18:20] LABS: BASO # 0.07 K/mm3 (0.0-2.0); BASO % 1.5 % (0.0-3.0); EOS % 0.6 % (1.5-5.0); HEMOGLOBIN 11.9 g/dL (14.0-18.0); LYMPH # 1.6 (1.2-3.4); LYMPH % 33.5 % (22.0-35.0); MEAN CELL VOLUME 83.5 fl (80.0-105.0); MEAN CORPUSCULAR HEMOGLOBIN 29.2 pg (25.0-35.0); MONO # 0.7 (0.1-0.6); MONO % 14.4 % (1.0-6.0); RBC 4.07 10^6/uL (3.5-6.1); WHITE BLOOD COUNT 4.7 10^3/uL (4.5-11.0)
[2018-09-12 18:21] LABS: URINE BILIRUBIN NEGATIVE (NEGATIVE); URINE BLOOD NEGATIVE (NEGATIVE); URINE GLUCOSE (UA) NEGATIVE (NEGATIVE); URINE LEUKOCYTE ESTERASE NEGATIVE Leu/uL (NEGATIVE); URINE PROTEIN NEGATIVE mg/dL (<30 mg/dL); URINE UROBILINOGEN 0.2 E.U./dL (<1 E.U./dL)
[2018-09-12 18:22] LABS: URINE APPEARANCE CLEAR (CLEAR); URINE COLOR STRAW (YELLOW)
[2018-09-12 18:36] LABS: ACETAMINOPHEN < 10.0 ug/ml (10.0-20.0); SALICYLATE < 1 mg/dL (2.0-20.0)
[2018-09-12 18:49] LABS: ALB/GLOB RATIO 1.2 (1.1-1.8); ALBUMIN 4.6 g/dL (3.0-4.8); ALT/SGPT 51 U/L (7-56); AST/SGOT 119 U/L (17-59); BLOOD UREA NITROGEN 9 mg/dL (7-21); CALCIUM 10.1 mg/dL (8.4-10.5); GFR NON-AFRICAN AMERICAN > 60; LIPASE 196 U/L (23-300)
[2018-09-12] MEDS ORDERED: Potassium Chloride 20 mEq ER Tab PO STA (18:50)
[2018-09-12 19:24] VITALS: BP 148/99; PULSE 98; O2SAT 100
--- NOTE | 2018-09-12 19:27 | CARD ---
APPROVED REPORT Date of service: 09/12/2018 EKG Measurement Heart [id number] <Conclusion> Normal sinus rhythm Voltage criteria for left ventricular hypertrophy Nonspecific T wave abnormality Prolonged QT Abnormal ECG
[2018-09-12 20:52] LABS: BARBITURATES, UR NEGATIVE (NEGATIVE); BENZODIAZEPINES, UR NEGATIVE (NEGATIVE); OPIATES, UR NEGATIVE (NEGATIVE); PHENCYCLIDINE, UR NEGATIVE (NEGATIVE)
== END 2018-09-12 19:52 | disposition home or self-care (01) ==
LOC: ED 16:57
DX: K29.20 Alcoholic gastritis without bleeding (principal); I10 Essential (primary) hypertension; Z98.84 Bariatric surgery status
CPT/HCPCS: 71045; 80053; 81003; 83690; 83735; 85025; 93005; 96365; 99283; G0480; J7040

== ENCOUNTER 2018-10-12 05:39 | Inpatient (IN) | payer MEDICAID ==
[2018-10-12 05:39] VITALS: BMI 35.4
--- NOTE | 2018-10-12 06:03 | ED PDOC ---
Arrival/HPI - General Chief Complaint: Chest Pain Time Seen by Provider: 10/12/18 05:43 Historian: Patient - History of Present Illness Narrative History of Present Illness (Text): 10/12/18 05:59 Carlyle Ward is a 37 year old male, whose past medical history include hypertension, pancreatitis, and alcohol abuse, who presents to the Emergency department complaining of chest/abdominal pain. Patient states he recently drank alcohol 3 days prior and has been experiencing gradually worsening upper abdominal/chest pain since then. Patient notes pain is similar to previous episodes of pancreatitis. Patient states he has been taking Ibuprofen for pain at home with some temporary improvement, but states it did not improve symptoms at all today. Patient denies any fever, chills, shortness of breath, vomiting, diarrhea, back pain, headache, dizziness, or any other complaints. Symptom Onset: Gradual Symptom Course: Unchanged Activities at Onset: Light Context: Home Past Medical History - Provider Review Nursing Documentation Reviewed: Yes - Infectious Disease Hx of Infectious Diseases: None - Cardiac Hx Hypertension: Yes - Pulmonary Hx Respiratory Disorders: No - Neurological Hx Neurological Disorder: No - HEENT Hx HEENT Disorder: No - Renal Hx Renal Disorder: No - Endocrine/Metabolic Hx Endocrine Disorders: No - Hematological/Oncological Hx Blood Disorders: No - Integumentary Hx Dermatological Disorder: No - Musculoskeletal/Rheumatological Hx Musculoskeletal Disorders: No Hx Falls: No - Gastrointestinal Hx Pancreatitis: Yes - Genitourinary/Gynecological Hx Genitourinary Disorders: No - Psychiatric Hx Depression: Yes Hx Substance Use: Yes - Surgical History Hx Appendectomy: Yes Hx Cholecystectomy: Yes - Anesthesia Hx Anesthesia: Yes Hx Anesthesia Reactions: No Hx Malignant Hyperthermia: No Family/Social History - Physician Review Nursing Documentation Reviewed: Yes Family/Social History: Unknown Family HX Smoking Status: Never Smoked Hx Alcohol Use: Yes Hx Substance Use: Yes Allergies/Home Meds Allergies/Adverse Reactions: Allergies ramipril Adverse Reaction (Verified 10/12/18 07:00) ANGIOEDEMA Home Medications: Home Meds Medication Instructions Recorded Confirmed Atenolol 100 mg PO HS 09/15/18 10/12/18 Review of Systems - Physician Review All systems were reviewed & negative as marked: Yes - Review of Systems Constitutional: Normal. absent: Fevers Eyes: Normal ENT: Normal Respiratory: Normal. absent: SOB, Cough Cardiovascular: Chest Pain Gastrointestinal: Abdominal Pain. absent: Diarrhea, Vomiting Genitourinary Male: Normal. absent: Dysuria, Frequency, Hematuria, Urinary Output Changes Musculoskeletal: Normal. absent: Back Pain, Neck Pain Skin: Normal. absent: Rash Neurological: Normal. absent: Headache, Dizziness Endocrine: Normal Hemo/Lymphatic: Normal Psychiatric: Normal Physical Exam Vital Signs Reviewed: Yes Vital Signs Temp Pulse Resp BP Pulse Ox 10/12/18 05:54 98.2 F 105 H 20 152/106 H 100 Temperature: Afebrile Blood Pressure: Normal Pulse: Regular Respiratory Rate: Normal Appearance: Positive for: Well-Appearing, Non-Toxic, Comfortable Pain Distress: None Mental Status: Positive for: Alert and Oriented X 3 - Systems Exam Head: Present: Atraumatic, Normocephalic Pupils: Present: PERRL Extroacular Muscles: Present: EOMI Conjunctiva: Present: Normal Mouth: Present: Moist Mucous Membranes Neck: Present: Normal Range of Motion Respiratory/Chest: Present: Clear to Auscultation, Good Air Exchange. No: Respiratory Distress, Accessory Muscle Use Cardiovascular: Present: Regular Rate and Rhythm, Normal S1, S2. No: Murmurs Abdomen: No: Tenderness, Distention, Peritoneal Signs Back: Present: Normal Inspection Upper Extremity: Present: Normal Inspection. No: Cyanosis, Edema Lower Extremity: Present: Normal Inspection. No: Edema Neurological: Present: GCS=15, CN II-XII Intact, Speech Normal Skin: Present: Warm, Dry, Normal Color. No: Rashes Psychiatric: Present: Alert, Oriented x 3, Normal Insight, Normal Concentration Medical Decision Making ED Course and Treatment: 10/12/18 05:59 Impression: 37 year old male complaining of upper abdominal/chest pain for the past few days. Plan: -- EKG -- CXR -- Labs, cardiac enzymes, lipase, amylase -- UA -- IV fluids -- Protonix -- Zofran -- Reassess and disposition Prior Visits: Notes and results from previous visits were reviewed. Progress Notes: Reviewed EKG, NSR at [address] bpm. LVH. Non-specific ST/T wave changes. - EKG Interpretation Interpreted by ED Physician: Yes Type: 12 lead EKG - Transfer of Care Patient signed out to Dr:: milton labd and dispo - Scribe Statement The provider has reviewed the documentation as recorded by the Scribe Lucie Vines All medical record entries made by the Negritaiblondon were at my direction and personally dictated by me. I have reviewed the chart and agree that the record accurately reflects my personal performance of the history, physical exam, medical decision making, and the department course for this patient. I have also personally directed, reviewed, and agree with the discharge instructions and disposition. Disposition/Present on Arrival - Present on Arrival Any Indicators Present on Arrival: No History of DVT/PE: No History of Uncontrolled Diabetes: No Urinary Catheter: No History of Decub. Ulcer: No History Surgical Site Infection Following: None - Disposition Have Diagnosis and Disposition been Completed?: Yes Diagnosis: Pancreatitis Disposition: HOSPITALIZED Disposition Time: 07:00 Condition: FAIR
[2018-10-12] MEDS ORDERED: Sodium Chloride 0.9% 1,000 ML IV SCH ×2 (06:15→10:12)
[2018-10-12 06:34] LABS: BASO # 0.03 K/mm3 (0.0-2.0); BASO % 0.5 % (0.0-3.0); EOS % 0.5 % (1.5-5.0); HEMOGLOBIN 12.9 g/dL (14.0-18.0); LYMPH # 1.2 (1.2-3.4); LYMPH % 21.1 % (22.0-35.0); MEAN CELL VOLUME 83.1 fl (80.0-105.0); MEAN CORPUSCULAR HEMOGLOBIN 29.1 pg (25.0-35.0); MEAN CORPUSCULAR HGB CONC 35.1 g/dl (31.0-37.0); MEAN PLATELET VOLUME 10.3 fl (7.0-11.0); MONO # 0.5 (0.1-0.6); MONO % 9.3 % (1.0-6.0); RBC 4.43 10^6/uL (3.5-6.1); RED CELL DISTRIBUTION WIDTH 14.2 % (11.5-14.5); WHITE BLOOD COUNT 5.6 10^3/uL (4.5-11.0)
[2018-10-12 06:54] LABS: TROPONIN I < 0.01 ng/mL
[2018-10-12 06:55] LABS: ALB/GLOB RATIO 1.2 (1.1-1.8); ALBUMIN 4.6 g/dL (3.0-4.8); ALT/SGPT 32 U/L (7-56); AMYLASE 229 U/L (35-125); AST/SGOT 113 U/L (17-59); BLOOD UREA NITROGEN 12 mg/dL (7-21); CALCIUM 9.7 mg/dL (8.4-10.5); GFR NON-AFRICAN AMERICAN > 60; LIPASE 2080 U/L (23-300)
--- NOTE | 2018-10-12 06:55 | ED PDOC ---
Physical Exam Vital Signs Temp Pulse Resp BP Pulse Ox 10/12/18 05:54 98.2 F 105 H 20 152/106 H 100 Medical Decision Making ED Course and Treatment: 10/12/18 06:[address] Acosta with patient pending labs and reevaluation 10/12/18 07:01 Lipase reviewed with elevated lipase and hypokalemia. Toradol, Librium and potassium ordered. - Lab Interpretations Lab Results: 10/12/18 06:26 10/12/18 06:26 Lab Results 10/12/18 06:26: Sodium 140, Potassium 3.0 L, Chloride 98, Carbon Dioxide 30, Anion Gap 15, BUN 12, Creatinine 1.2, Est GFR ( Amer) > 60, Est GFR (Non- Af Amer) > 60, Random Glucose 131 H, Calcium 9.7, Total Bilirubin 2.2 H, AST 113 H D, ALT 32, Alkaline Phosphatase 128 H D, Lactate Dehydrogenase 773 H, Total Creatine Kinase 125, Troponin I < 0.01, Total Protein 8.4 H, Albumin 4.6, Globulin 3.8, Albumin/Globulin Ratio 1.2, Amylase 229 H, Lipase 2080 H 10/12/18 06:26: PT 11.7, INR 1.04, APTT 30.0 10/12/18 06:26: WBC 5.6, RBC 4.43, Hgb 12.9 L, Hct 36.8 L, MCV 83.1, MCH 29.1, MCHC 35.1, RDW 14.2, Plt Count 272, MPV 10.3, Neut % (Auto) 68.6 H, Lymph % (Auto) 21.1 L, [place] % (Auto) 9.3 H, Eos % (Auto) 0.5 L, Baso % (Auto) 0.5, Lymph # (Auto) 1.2, [place] # (Auto) 0.5, Eos # (Auto) 0.0, Baso # (Auto) 0.03, Absolute Neuts (auto) 3.83 I have reviewed the lab results: Yes - RAD Interpretation Radiology Orders: 10/12/18 06:02 CHEST PORTABLE [RAD] Stat - Medication Orders Current Medication Orders: Sodium Chloride (Sodium Chloride 0.9%) 1,000 mls @ 80 mls/hr IV .[id number] Last Admin: 10/12/18 06:30 Dose: 80 mls/hr eMAR Start Stop Document 10/12/18 06:30 RG (Rec: 10/12/18 06:30 [id number] Intravenous Solution Start Date 10/12/18 Start Time 06:30 Discontinued Medications Ondansetron HCl (Zofran Inj) 4 mg IVP STAT STA Stop: 10/12/18 06:03 Last Admin: 10/12/18 06:27 Dose: 4 mg IVP Administration Document 10/12/18 06:27 RG (Rec: 10/12/18 06:30 [id number] Charges for Administration # of IVP Administrations 1 Pantoprazole Sodium (Protonix Inj) 40 mg IVP ONCE STA Stop: 10/12/18 06:03 Last Admin: 10/12/18 06:25 Dose: 40 mg IVP Administration Document 10/12/18 06:25 RG (Rec: 10/12/18 06:30 [id number] Charges for Administration # of IVP Administrations 1 Disposition/Present on Arrival - Present on Arrival History of DVT/PE: No History of Uncontrolled Diabetes: No Urinary Catheter: No History of Decub. Ulcer: No History Surgical Site Infection Following: None - Disposition Forms: [employer] (Martiniquais)
[2018-10-12] MEDS ORDERED: Iohexol 350 MG/100 ML VIAL ONE (07:14)
[2018-10-12 07:23] LABS: INR 1.04; PROTHROMBIN TIME 11.7 SECONDS (9.4-12.5)
--- NOTE | 2018-10-12 10:16 | CT ---
Date of service: 10/12/2018 PROCEDURE: CT abdomen and pelvis HISTORY: Pancreatitis w/elevated lipase COMPARISON: Comparison made with prior study 08/11/2018. TECHNIQUE: Contiguous axial images of the abdomen and pelvis. Oral contrast was administered. No IV contrast given. Coronal and Sagittal reformats generated. Radiation dose: Total exam DLP = 1017.53 mGy-cm. This CT exam was performed using one or more of the following dose reduction techniques: Automated exposure control, adjustment of the mA and/or kV according to patient size, and/or use of iterative reconstruction technique. FINDINGS: LOWER THORAX: Unremarkable. LIVER: Liver is markedly enlarged measuring over 25 cm in CC dimension. Significant fatty infiltration. No obvious hepatic mass collection or calcification. Portal and splenic veins are. GALLBLADDER AND BILE DUCTS: Cholecystectomy. PANCREAS: Mild edematous appearance of the pancreatic parenchyma with infiltration small of peripancreatic fluid.. Findings consistent with mild acute pancreatitis. There is slight thickening of the wall of the traversing duodenum likely reactive due to adjacent inflammation. SPLEEN: Unremarkable. No splenomegaly. ADRENALS: There are no adrenal lesions. KIDNEYS AND URETERS: Kidneys demonstrate symmetric nephrograms. No evidence of nephrolithiasis hydronephrosis. BLADDER: Urinary bladder wall is slightly thickened due to incomplete distension and possibly muscular hypertrophy. Correlation with urinalysis recommended to exclude cystitis. REPRODUCTIVE: Unremarkable as visualized APPENDIX: Appendix is not positively identified however there are radiopaque density seen along all the cecum. Rule out sequela prior appendectomy. No obvious inflammation right lower quadrant of the abdomen. BOWEL: Evaluation of the bowel is somewhat limited due to the lack oral contrast material. Apparent changes of gastric bypass surgery again noted. As mentioned above, there is mild wall thickening of the traversing duodenum likely due reactive secondary to adjacent inflammatory changes of the pancreas.. Mild wall thickening of few proximal of the small bowel also felt to present however no evidence acute mechanical bowel obstruction. Persistent mild wall thickening of the rectum distal sigmoid colon consistent nonspecific. Rule out localized colitis/proctitis. PERITONEUM: Unremarkable. No fluid collection. No free air. LYMPH NODES: Unremarkable. No enlarged lymph nodes. VASCULATURE: Unremarkable. No aortic aneurysm. No aortic atherosclerotic calcification or mural plaque present. BONES: Minor multilevel degenerative spondylosis of the lower thoracic and lumbar spine OTHER FINDINGS: None. IMPRESSION: Findings consistent with mild acute pancreatitis. Mild wall thickening of the traversing duodenum likely reactive secondary to adjacent inflammation of the pancreas. Mild wall thickening of few proximal of the small bowel also felt to present however no evidence acute mechanical bowel obstruction. Marked hepatomegaly and fatty infiltration. Persistent mild wall thickening of the rectum distal sigmoid colon consistent nonspecific. Rule out localized colitis/proctitis.
[2018-10-12] MEDS ORDERED: Potassium Chloride 40 mEq/30 ml LIQ UD PO STA (11:18)
--- NOTE | 2018-10-12 11:21 | CP.PCM.HP ---
<Irwin Winslow - Last Filed: 10/12/18 11:44> History of Present Illness - History of Present Illness History of Present Illness: Irwin Winslow DO, PGY-2: HPI for Hospitalist Dr. Pranav Ortega 37 year old male with a past medical history of hypertension, alcohol abuse, pancreatitis, and gastric bypass who presented with 4 days of progressively worsening epigastric pain, nausea, and vomiting . He reports drinking 10-20 drinks per day, but stopping on Saturday of this week due to epigastric pain. The epigastric pain is 9/10 in severity, sharp-stabbing pain, radiating to the back, worsened with drinking anything, initially improved with taking Advil every 6 hours (but is now not responding), and now is progressively getting worse. He reports last drinking alcohol on Saturday. He also reports having diarrhea, about 4-5 times a day that is not blood or dark. He denies any chest pain, shortness of breath, fever, chills, unilateral weakness or numbness. He does admit to experiencing tremors, difficulty concentrating, and some anxiety since he has stopped drinking alcohol. Otherwise, 12 point ROS is negative except as mentioned above. PMH: hypertension, alcohol abuse, pancreatitis, depression, GERD PSH: appendectomy, gastric bypass, cholecystectomy Allergies: Ramipril- lips swell up Social: Unemployed, drinks 10-20 drinks a day, no tobacco or illicit drug use Pharmacy: [address] Present on Admission - Present on Admission Any Indicators Present on Admission: No Review of Systems - Review of Systems All systems: reviewed and no additional remarkable complaints except (except as per HPI) Past Patient History - Infectious Disease Hx of Infectious Diseases: None - Past Medical History & Family History Past Medical History?: Yes - Past Social History Smoking Status: Never Smoked - CARDIAC Hx Hypertension: Yes - PULMONARY Hx Respiratory Disorders: No - NEUROLOGICAL Hx Neurological Disorder: No - HEENT Hx HEENT Problems: No - RENAL Hx Chronic Kidney Disease: No - ENDOCRINE/METABOLIC Hx Endocrine Disorders: No - HEMATOLOGICAL/ONCOLOGICAL Hx Blood Disorders: No - INTEGUMENTARY Hx Dermatological Problems: No - MUSCULOSKELETAL/RHEUMATOLOGICAL Hx Musculoskeletal Disorders: No Hx Falls: No - GASTROINTESTINAL Hx Pancreatitis: Yes - GENITOURINARY/GYNECOLOGICAL Hx Genitourinary Disorders: No - PSYCHIATRIC Hx Depression: Yes Hx Substance Use: Yes - SURGICAL HISTORY Hx Appendectomy: Yes Hx Cholecystectomy: Yes - ANESTHESIA Hx Anesthesia: Yes Hx Anesthesia Reactions: No Hx Malignant Hyperthermia: No Meds Allergies/Adverse Reactions: Allergies Allergy/AdvReac Type Severity Reaction Status Date / Time ramipril AdvReac ANGIOEDEMA Verified 10/12/18 07:00 Physical Exam - Constitutional Additional comments: mild distress - Head Exam Head Exam: ATRAUMATIC, NORMOCEPHALIC - Eye Exam Eye Exam: EOMI, Normal appearance, PERRL - ENT Exam ENT Exam: Mucous Membranes Moist, Normal Oropharynx - Neck Exam Neck exam: Positive for: Normal Inspection - Respiratory Exam Respiratory Exam: Clear to Auscultation Bilateral, NORMAL BREATHING PATTERN. absent: Accessory Muscle Use, Wheezes - Cardiovascular Exam Cardiovascular Exam: Tachycardia, +S1, +S2. absent: Systolic Murmur - GI/Abdominal Exam GI & Abdominal Exam: Tenderness (epigastric area). absent: Guarding, Rebound Additional comments: keloids forming around prior laparotomy scars - Extremities Exam Extremities exam: Positive for: normal inspection. Negative for: calf tenderness - Back Exam Back exam: absent: CVA tenderness (L), CVA tenderness (R) - Neurological Exam Neurological exam: Alert, CN II-XII Intact, Oriented x3 - Psychiatric Exam Psychiatric exam: Normal Affect, Normal Mood - Skin Skin Exam: Dry, Intact, Normal Color, Warm Results - Vital Signs Recent Vital Signs: Last Vital Signs Temp 98 F 10/12/18 10:48 Pulse 89 10/12/18 10:48 Resp 18 10/12/18 10:48 BP 132/59 L 10/12/18 10:48 Pulse Ox 98 10/12/18 10:48 - Labs Result Diagrams: 10/12/18 06:26 10/12/18 06:26 Labs: Laboratory Results - last 24 hr 10/12/18 10/12/18 10/12/18 06:00 06:26 06:26 WBC 5.6 RBC 4.43 Hgb 12.9 L Hct 36.8 L MCV 83.1 MCH 29.1 MCHC 35.1 RDW 14.2 Plt Count 272 MPV 10.3 Neut % (Auto) 68.6 H Lymph % (Auto) 21.1 L Jay % (Auto) 9.3 H Eos % (Auto) 0.5 L Baso % (Auto) 0.5 Lymph # (Auto) 1.2 Jay # (Auto) 0.5 Eos # (Auto) 0.0 Baso # (Auto) 0.03 Absolute Neuts (auto) 3.83 PT 11.7 INR 1.04 APTT 30.0 Sodium Potassium Chloride Carbon Dioxide Anion Gap BUN Creatinine Est GFR ( Amer) Est GFR (Non-Af Amer) Random Glucose Calcium Total Bilirubin AST ALT Alkaline Phosphatase Lactate Dehydrogenase Total Creatine Kinase Troponin I Total Protein Albumin Globulin Albumin/Globulin Ratio Amylase Lipase Alcohol, Quantitative < 10 10/12/18 06:26 WBC RBC Hgb Hct MCV MCH MCHC RDW Plt Count MPV Neut % (Auto) Lymph % (Auto) Jay % (Auto) Eos % (Auto) Baso % (Auto) Lymph # (Auto) Jay # (Auto) Eos # (Auto) Baso # (Auto) Absolute Neuts (auto) PT INR APTT Sodium 140 Potassium 3.0 L Chloride 98 Carbon Dioxide 30 Anion Gap 15 BUN 12 Creatinine 1.2 Est GFR ( Amer) > 60 Est GFR (Non-Af Amer) > 60 Random Glucose 131 H Calcium 9.7 Total Bilirubin 2.2 H AST 113 H D ALT 32 Alkaline Phosphatase 128 H D Lactate Dehydrogenase 773 H Total Creatine Kinase 125 Troponin I < 0.01 Total Protein 8.4 H Albumin 4.6 Globulin 3.8 Albumin/Globulin Ratio 1.2 Amylase 229 H Lipase 2080 H Alcohol, Quantitative - EKG Data EKG Interpreted by: Myself - Impressions Impression: LVH with strain Assessment & Plan - Assessment and Plan (Free Text) Assessment: 37 year old male with a past medical history of hypertension, alcohol abuse/dependence, pancreatitis, and gastric bypass who presented with gradually worsening epigastric pain, decreased PO intake, and was found to have a lipase of [address] findings consistent with acute pancreatitis Plan: 1) Acute Pancreatitis - Lipase 2080 - CT showed findings consistent with mild acute pancreatitis. Mild wall thickening of the traversing duodenum likely reactive secondary to adjacent inflammation of the pancreas. Mild wall thickening of few proximal of the small bowel also felt to present however no evidence acute mechanical bowel obstruction. Marked hepatomegaly and fatty infiltration. Persistent mild wall thickening of the rectum distal sigmoid colon consistent nonspecific. - NPO except for PO meds - NS 180 mls/hr - Zofran 4 mg q6h PRN for nausea - Morphine 2 mg q4h PRN for severe pain 2) Alcohol withdrawal - CIWA - Ativan 1 mg q6h PRN for Symptoms of KULDEEP - MV, Thiamine, and Folic Acid 3) GERD - Protonix 20 mg PO 06:00 4) Hypertension - Atenolol 100 mg HS - Amlodipine 10 mg - Losartan 100 mg daily - Hydralazine 25 mg q8h for SBP greater than 180 5) Depression - Zoloft 100 mg - Trazadone 100 mg HS 6) GI/DVT prophylaxis - SCD - Lovenox 40 mg daily - Protonix 20 mg 06:00 <Ly Ortega R - Last Filed: 10/12/18 14:08> Results - Vital Signs Recent Vital Signs: Last Vital Signs Temp 98 F 10/12/18 10:48 Pulse 89 10/12/18 10:48 Resp 18 10/12/18 11:55 BP 129/91 H 10/12/18 13:59 Pulse Ox 98 10/12/18 10:48 - Labs Result Diagrams: 10/12/18 06:26 10/12/18 06:26 Labs: Laboratory Results - last 24 hr 10/12/18 10/12/18 10/12/18 06:00 06:00 06:26 WBC 5.6 RBC 4.43 Hgb 12.9 L Hct 36.8 L MCV 83.1 MCH 29.1 MCHC 35.1 RDW 14.2 Plt Count 272 MPV 10.3 Neut % (Auto) 68.6 H Lymph % (Auto) 21.1 L Jay % (Auto) 9.3 H Eos % (Auto) 0.5 L Baso % (Auto) 0.5 Lymph # (Auto) 1.2 Jay # (Auto) 0.5 Eos # (Auto) 0.0 Baso # (Auto) 0.03 Absolute Neuts (auto) 3.83 PT INR APTT Sodium Potassium Chloride Carbon Dioxide Anion Gap BUN Creatinine Est GFR ( Amer) Est GFR (Non-Af Amer) Random Glucose Calcium Magnesium 1.9 Total Bilirubin AST ALT Alkaline Phosphatase Lactate Dehydrogenase Total Creatine Kinase Troponin I Total Protein Albumin Globulin Albumin/Globulin Ratio Amylase Lipase Alcohol, Quantitative < 10 10/12/18 10/12/18 06:26 06:26 WBC RBC Hgb Hct MCV MCH MCHC RDW Plt Count MPV Neut % (Auto) Lymph % (Auto) Jay % (Auto) Eos % (Auto) Baso % (Auto) Lymph # (Auto) Jay # (Auto) Eos # (Auto) Baso # (Auto) Absolute Neuts (auto) PT 11.7 INR 1.04 APTT 30.0 Sodium 140 Potassium 3.0 L Chloride 98 Carbon Dioxide 30 Anion Gap 15 BUN 12 Creatinine 1.2 Est GFR ( Amer) > 60 Est GFR (Non-Af Amer) > 60 Random Glucose 131 H Calcium 9.7 Magnesium Total Bilirubin 2.2 H AST 113 H D ALT 32 Alkaline Phosphatase 128 H D Lactate Dehydrogenase 773 H Total Creatine Kinase 125 Troponin I < 0.01 Total Protein 8.4 H Albumin 4.6 Globulin 3.8 Albumin/Globulin Ratio 1.2 Amylase 229 H Lipase 2080 H Alcohol, Quantitative Attending/Attestation - Attestation I have personally seen and examined this patient.: Yes I have fully participated in the care of the patient.: Yes I have reviewed all pertinent clinical information: Yes Notes (Text): Patient seen and examined by me with resident at 10:40 AM on 10/11/18 in the emergency room. Case including HPI, physical exam, and assessment and plan discussed with resident. Agree with above with following additions/corrections. Patient is a 37-year-old male with past medical history significant for hypertension, alcohol abuse, depression, and pancreatitis presented to the emergency room with epigastric pain. Patient states his last alcoholic drink was 2-3 days ago. He states he has 10-20 drinks a day. He states he started to have epigastric "discomfort" approximately 3 days ago. He states he took approximately 8 Advil over a 24 hour period which seemed to help with the pain. However, the pain became progressively worse. He states the pain is "sharp and burning" in nature and comes and goes. He tried Advil this morning with no relief. Patient states the pain radiates to his back. He states he has 2 nonbilious, nonbloody episodes of vomiting yesterday. Patient states he is also having some diarrhea mixed with formed stool the past couple of days. States that he has been going approximately 4-5 times a day. Patient denies any chest pain or shortness of breath. No headaches or dizziness. No lightheadedness. No fevers or chills. No current nausea or vomiting. No dysuria. 12 point review of systems reviewed by me. See above HPI, all other systems negative. Past medical history: Hypertension, alcohol abuse, pancreatitis, depression Past surgical history: Appendectomy, Cholecystectomy, Jemal-en-Y gastric bypass surgery Allergies: Ramipril Home meds: Losartan 100 mg daily, Amlodipine 10 mg daily, Atenolol 100 mg daily in evening, HCTZ 25 TID prn, trazodone 100mg at bedtime, Zoloft 100mg daily Family history: Mom and had HTN, Dad and had DM and HTN Social history: denies smoking or illicit drug use; admits to drinking 10-20 alcoholic drinks a day Physical exam: General: Awake and alert lying in bed in no acute distress HEENT: Normocephalic, atraumatic. Extraocular muscles intact, pupils equal and reactive, no scleral icterus. Oropharynx is pink and moist. No pharyngeal e rythema or exudate appreciated. Neck is supple. Hearing grossly intact. Ears and nose externally unremarkable. Cardiovascular: Regular rhythm. Normal S1 and S2. No murmurs, rubs, or gallops appreciated Pulmonary: Normal respiratory effort. No rhonchi, rales, or wheezing appreciated. Gastrointestinal: Soft, nondistended. Positive epigastric tenderness. Positive bowel sounds all 4 quadrants. No guarding. Musculoskeletal: Moves all extremities. No calf tenderness. No edema appreciated. Central nervous system: AAO x 3. CN2-12 grossly intact. Dermatologic: Skin warm and dry. Assessment and plan: Patient is a 37-year-old male with past medical history significant for hypertension, alcohol abuse, depression, and pancreatitis presented to the emergency room with epigastric pain. 1. Acute pancreatitis. Epigastric abdominal pain. Secondary to alcohol abuse. CT abdomen and pelvis per radiologist showed findings consistent with mild acute pancreatitis; mild wall thickening of the transversing duodenum likely reactive secondary to adjacent inflammation of the pancreas; mild wall thickening of the proximal small bowel also present however, no evidence of acute mechanical bowel obstruction; marked hepatomegaly and fatty infiltration; persistent mild wall thickening of the rectum and distal sigmoid colon nonspecific. GI consulted for possible proctitis, pending recommendations. Lipase 2080. Placed on IV fluids. Made NPO. Pain management with morphine. Patient counseled at length on alcohol cessation. 2. Hypokalemia. Potassium replaced. Follow up repeat labs. 3. Alcohol abuse. Placed on CIWA protocol. Ativan 1mg Iv q4 prn withdrawal symptoms. Placed on thiamine, folic acid, and multivitamin. Patient counseled at length on alcohol cessation. 4. Transaminitis. Secondary to alcohol abuse. Follow up repeat labs in AM. 5. Hypertension. Continue home Norvasc and Cozaar. Continue home atenolol at bedtime. Placed on hydralazine as needed. 6. Depression and anxiety. Continue home trazodone and zoloft. 7. GI/DVT prophylaxis. Protonix/Lovenox. Case was discussed in detail with the patient regarding current diagnosis, study results, and treatment plan. All questions answered.
[2018-10-12] MEDS: Morphine 2 mg/ml ISec IVP PRN ×2 (12:45→20:24)
[2018-10-12] MEDS: Sodium Chloride 0.9% 1,000 ML IV SCH ×3 (13:27→22:20)
--- NOTE | 2018-10-12 14:09 | RAD ---
Date of service: 10/12/2018 HISTORY: cp COMPARISON: Comparison chest dated 09/12/2018 TECHNIQUE: 1 view obtained. FINDINGS: LUNGS: No active pulmonary disease. PLEURA: No significant pleural effusion identified, no pneumothorax apparent. CARDIOVASCULAR: No aortic atherosclerotic calcification present. Normal cardiac size. No pulmonary vascular congestion. OSSEOUS STRUCTURES: No significant abnormalities. VISUALIZED UPPER ABDOMEN: Normal. OTHER FINDINGS: None. IMPRESSION: No active disease.
[2018-10-12] MEDS ORDERED: Morphine 2 mg/ml ISec IVP STA (15:33)
[2018-10-13] MEDS: Morphine 2 mg/ml ISec IVP PRN ×5 (01:28→21:48)
[2018-10-13] MEDS ORDERED: Morphine 4 mg/ml ISec IVP ONE (03:40)
[2018-10-13] MEDS: Pantoprazole 20 mg EC Tab PO SCH (05:35)
[2018-10-13] MEDS ORDERED: Pantoprazole 20 mg EC Tab PO SCH (06:00)
[2018-10-13 07:09] LABS: BASO # 0.03 K/mm3 (0.0-2.0); BASO % 0.5 % (0.0-3.0); EOS # 0.1 (0.0-0.7); EOS % 1.9 % (1.5-5.0); LYMPH % 17.3 % (22.0-35.0); MEAN CELL VOLUME 84.1 fl (80.0-105.0); MEAN CORPUSCULAR HEMOGLOBIN 28.2 pg (25.0-35.0); MEAN CORPUSCULAR HGB CONC 33.5 g/dl (31.0-37.0); MEAN PLATELET VOLUME 9.9 fl (7.0-11.0); MONO # 0.4 (0.1-0.6); MONO % 6.5 % (1.0-6.0); RBC 3.72 10^6/uL (3.5-6.1); WHITE BLOOD COUNT 5.7 10^3/uL (4.5-11.0)
--- NOTE | 2018-10-13 07:16 | CARD ---
APPROVED REPORT Date of service: 10/12/2018 EKG Measurement Heart [id number] <Conclusion> Normal sinus rhythm Voltage criteria for left ventricular hypertrophy ST & T wave abnormality, consider inferolateral ischemia Abnormal ECG
[2018-10-13 07:30] LABS: ALB/GLOB RATIO 1.2 (1.1-1.8); ALBUMIN 3.8 g/dL (3.0-4.8); ALT/SGPT 127 U/L (7-56); AST/SGOT 516 U/L (17-59); BLOOD UREA NITROGEN 6 mg/dL (7-21); CALCIUM 8.2 mg/dL (8.4-10.5); GFR NON-AFRICAN AMERICAN > 60
[2018-10-13 07:33] LABS: HEMOGLOBIN 10.5 g/dL (14.0-18.0)
[2018-10-13] MEDS: Sodium Chloride 0.9% 1,000 ML IV SCH ×3 (07:45→13:29)
[2018-10-13] MEDS ORDERED: Potassium Chloride 20 mEq ER Tab PO STA ×2 (07:51→07:55)
[2018-10-13] MEDS ORDERED: Multi Vitamins 15 mL UD Oral Solution PO SCH (08:00)
[2018-10-13] MEDS: Multivitamin Therapeutic Tab PO SCH (08:07)
[2018-10-13] MEDS: Enoxaparin 40 mg Syringe SC SCH (09:36)
[2018-10-13 11:04] LABS: IRON 86 ug/dL (45-180)
--- NOTE | 2018-10-13 11:05 | US ---
Date of service: 10/13/2018 HISTORY: Elevation of LFTs, ? stones COMPARISON: None. TECHNIQUE: Sonographic evaluation of the abdomen. FINDINGS: LIVER: Measures 25.3 cm. Increased echogenicity of the liver parenchyma. No mass. No intrahepatic bile duct dilatation. Normal flow in the portal vein GALLBLADDER: Removed COMMON BILE DUCT: Measures 8 mm. No stones. No dilatation. PANCREAS: Unremarkable as visualized. No mass. No ductal dilatation. RIGHT KIDNEY: Measures 12.5 x 5.4 x 5.8cm. Normal echogenicity. No calculus, mass, or hydronephrosis. LEFT KIDNEY: Measures 12.2 x 5.5 x 5.1cm. Normal echogenicity. No calculus, mass, or hydronephrosis. SPLEEN: Normal in size and contour. No mass. 15.2 x 5.6 x 5.6 cm AORTA: No aneurysmal dilatation. IVC: Unremarkable. OTHER FINDINGS: None. IMPRESSION: Fatty infiltration of the liver.
[2018-10-13 11:14] LABS: % IRON SATURATION 27 % (20-55); TOTAL IRON BINDING CAPACITY 314 ug/dL (261-462)
--- NOTE | 2018-10-13 14:14 | CP.PCM.PN ---
<Hillary Fuentes - Last Filed: 10/13/18 14:47> Subjective - Date & Time of Evaluation Date of Evaluation: 10/13/18 Time of Evaluation: 10:30 - Subjective Subjective: Hillary Fuentes, PGY-1 Medicine Progress Note: Pt was seen and examined this AM at bedside. Pt states that he is feeling better and would like to try diet. Pt was reassessed later and found to be experiencing severe abdominal pain. Pt placed back NPO and fluids at 150cc/hr. Objective - Vital Signs/Intake and Output Vital Signs (last 24 hours): Temp Pulse Resp BP Pulse Ox 99.3 F 98 H 18 123/84 94 L 10/13/18 08:10 10/13/18 10:00 10/13/18 08:10 10/13/18 09:35 10/13/18 08:10 - Medications Medications: Current Medications Amlodipine Besylate (Norvasc) 10 mg PO DAILY [facility] Last Admin: 10/13/18 09:35 Dose: 10 mg Atenolol (Tenormin) 100 mg PO HS [facility] Last Admin: 10/12/18 22:15 Dose: 100 mg Enoxaparin Sodium (Lovenox) 40 mg SC DAILY [facility]; Protocol Last Admin: 10/13/18 09:36 Dose: 40 mg Folic Acid (Folic Acid) 1 mg PO DAILY [facility] Last Admin: 10/13/18 09:36 Dose: 1 mg Hydralazine HCl (Apresoline) 25 mg PO Q8H PRN PRN Reason: SBP above 180 Sodium Chloride (Sodium Chloride 0.9%) 1,000 mls @ 180 mls/hr IV .Q5H34M [facility] Last Admin: 10/13/18 13:29 Dose: 180 mls/hr Lorazepam (Ativan) 1 mg IVP Q4H PRN; Protocol PRN Reason: Symptoms of alcohol withdrawl Last Admin: 10/12/18 22:09 Dose: 1 mg Losartan Potassium (Cozaar) 100 mg PO DAILY [facility] Last Admin: 10/13/18 09:35 Dose: 100 mg Morphine Sulfate (Morphine) 2 mg IVP Q4H PRN PRN Reason: Pain, severe (8-10) Last Admin: 10/13/18 12:04 Dose: 2 mg Multivitamins (Thera Tab) 1 tab PO 0800 [facility] Last Admin: 10/13/18 08:07 Dose: 1 tab Ondansetron HCl (Zofran Inj) 4 mg IVP Q6H PRN PRN Reason: Nausea/Vomiting Pantoprazole Sodium (Protonix Ec Tab) 40 mg PO 0600 [facility] Last Admin: 10/13/18 05:35 Dose: 40 mg Sertraline HCl (Zoloft) 100 mg PO DAILY [facility] Last Admin: 10/13/18 09:36 Dose: 100 mg Thiamine HCl (Vitamin B1 Tab) 100 mg PO DAILY [facility] Last Admin: 10/13/18 09:35 Dose: 100 mg Trazodone HCl (Desyrel) 100 mg PO HS [facility] Last Admin: 10/12/18 22:08 Dose: 100 mg - Labs Labs: 10/13/18 06:30 10/13/18 06:30 PT 11.7 SECONDS (9.4-12.5) 10/12/18 06:26 INR 1.04 10/12/18 06:26 APTT 30.0 Seconds (26.9-38.3) 10/12/18 06:26 - Constitutional Constitutional Exam: No acute distress - Head Exam Head Exam: ATRAUMATIC, NORMOCEPHALIC - Eye Exam Eye Exam: EOMI, Normal appearance, PERRL - ENT Exam ENT Exam: Mucous Membranes Moist, Normal Oropharynx - Neck Exam Neck exam: Positive for: Normal Inspection - Respiratory Exam Respiratory Exam: Clear to Auscultation Bilateral, NORMAL BREATHING PATTERN. absent: Accessory Muscle Use, Wheezes - Cardiovascular Exam Cardiovascular Exam: Tachycardia, +S1, +S2. absent: Systolic Murmur - GI/Abdominal Exam GI & Abdominal Exam: Tenderness (epigastric area). absent: Guarding, Rebound Additional comments: keloids forming around prior laparotomy scars - Extremities Exam Extremities exam: Positive for: normal inspection. Negative for: calf tenderness - Back Exam Back exam: absent: CVA tenderness (L), CVA tenderness (R) - Neurological Exam Neurological exam: Alert, CN II-XII Intact, Oriented x3 - Psychiatric Exam Psychiatric exam: Normal Affect, Normal Mood - Skin Skin Exam: Dry, Intact, Normal Color, Warm Assessment and Plan - Assessment and Plan (Free Text) Assessment: 37 year old male with a past medical history of hypertension, alcohol abuse/dependence, pancreatitis, and gastric bypass who presented with gradually worsening epigastric pain, decreased PO intake, and was found to have a lipase of [address] findings consistent with acute pancreatitis Plan: Acute Pancreatitis - Lipase 2079 - CT showed findings consistent with mild acute pancreatitis. Mild wall thickening of the traversing duodenum likely reactive secondary to adjacent inflammation of the pancreas. Mild wall thickening of few proximal of the small bowel also felt to present however no evidence acute mechanical bowel obstruction. Marked hepatomegaly and fatty infiltration. Persistent mild wall thickening of the rectum distal sigmoid colon consistent nonspecific. - Pt attempted trial of diet but had severe pain - Pt back on NPO - LR 150 mls/hr - Zofran 4 mg q6h PRN for nausea - Morphine 2 mg q4h PRN for severe pain Alcohol withdrawal - CIWA - Last CIWA 0 - Ativan 1 mg q6h PRN for Symptoms of Withdrawal - MV, Thiamine, and Folic Acid - b12, folate, and Iron studied - Nutrion consult GERD - Protonix 20 mg PO 06:00 Hypertension - Atenolol 100 mg HS - Amlodipine 10 mg - Losartan 100 mg daily - Hydralazine 25 mg q8h for SBP greater than 180 Depression - Zoloft 100 mg - Trazadone 100 mg HS Hypokalemia - 40 mEq given in ED via IV and 40 mg given PO - Repeat BMP at 14:00 as well as serum magnesium GI/DVT prophylaxis - SCD - Lovenox 40 mg daily - Protonix 20 mg 06:00 Case was reviewed and discussed with attending physician, Dr. Nury Fuentes PGY-1 <Mk Arrington - Last Filed: 10/14/18 12:51> Objective - Vital Signs/Intake and Output Vital Signs (last 24 hours): Temp Pulse Resp BP Pulse Ox 99.6 F 79 20 114/71 95 10/13/18 17:57 10/14/18 06:00 10/13/18 17:57 10/13/18 17:57 10/13/18 17:57 Intake and Output: 10/14/18 10/14/18 06:59 18:59 Intake Total 0 Output Total 500 Balance -500 - Medications Medications: Current Medications Amlodipine Besylate (Norvasc) 10 mg PO DAILY [facility] Last Admin: 10/13/18 09:35 Dose: 10 mg Atenolol (Tenormin) 100 mg PO HS [facility] Last Admin: 10/13/18 21:46 Dose: 100 mg Enoxaparin Sodium (Lovenox) 40 mg SC DAILY [facility]; Protocol Last Admin: 10/13/18 09:36 Dose: 40 mg Folic Acid (Folic Acid) 1 mg PO DAILY [facility] Last Admin: 10/13/18 09:36 Dose: 1 mg Hydralazine HCl (Apresoline) 25 mg PO Q8H PRN PRN Reason: SBP above 180 Lactated Ringer's (Lactated Ringer's) 1,000 mls @ 150 mls/hr IV .Q6H40M [facility] Last Admin: 10/14/18 03:36 Dose: 150 mls/hr Lorazepam (Ativan) 1 mg IVP Q4H PRN; Protocol PRN Reason: Symptoms of alcohol withdrawl Last Admin: 10/13/18 23:31 Dose: 1 mg Losartan Potassium (Cozaar) 100 mg PO DAILY [facility] Last Admin: 10/13/18 09:35 Dose: 100 mg Morphine Sulfate (Morphine) 2 mg IVP Q4H PRN PRN Reason: Pain, severe (8-10) Last Admin: 10/14/18 07:33 Dose: 2 mg Multivitamins (Thera Tab) 1 tab PO 0800 [facility] Last Admin: 10/13/18 08:07 Dose: 1 tab Ondansetron HCl (Zofran Inj) 4 mg IVP Q6H PRN PRN Reason: Nausea/Vomiting Pantoprazole Sodium (Protonix Ec Tab) 40 mg PO 0600 [facility] Last Admin: 10/14/18 06:37 Dose: 40 mg Sertraline HCl (Zoloft) 100 mg PO DAILY [facility] Last Admin: 10/13/18 09:36 Dose: 100 mg Thiamine HCl (Vitamin B1 Tab) 100 mg PO DAILY [facility] Last Admin: 10/13/18 09:35 Dose: 100 mg Trazodone HCl (Desyrel) 100 mg PO HS [facility] Last Admin: 10/13/18 21:47 Dose: 100 mg - Labs Labs: 10/14/18 06:20 10/13/18 06:30 PT 11.7 SECONDS (9.4-12.5) 10/12/18 06:26 INR 1.04 10/12/18 06:26 APTT 30.0 Seconds (26.9-38.3) 10/12/18 06:26 Attending/Attestation - Attestation I have personally seen and examined this patient.: Yes I have fully participated in the care of the patient.: Yes I have reviewed all pertinent clinical information, including history, physical exam and plan: Yes Notes (Text): 10/14/18 07:50 Attending note; Patient seen and examined with in room 373. Patient's nurse by the bedside. Patient is alert and awake. complaining of epigastric pain. Denies any nausea, vomiting. Denies any fevers, chills. Patient is a 37 year old male with a past medical history of hypertension, alcohol abuse/dependence, pancreatitis, and gastric bypass who presented with gradually worsening epigastric pain, decreased PO intake, and was found to have a lipase of [address] findings consistent with acute pancreatitis. 1. Acute pancreatitis; secondary to alcohol abuse. N.p.o. continue IV fluids. IV morphine for pain management. 2. Chronic alcohol abuse; complete alcohol cessation is strongly advised . Continue multivitamin, thiamine, folic acid. Monitor with [facility] protocol. Continue IV Ativan as needed. Advised to follow-up with AA meetings on AA rehab. 3. Hypertension; continue Norvasc, metoprolol. 4. Depression; continue trazodone and Zoloft. 5. GI prophylaxis with Protonix. 6. Elevtaed LFTs; secondary to alcohol abuse. monitor closely. GI evaluation requested. 7. Hypokelmia; continue p.o. and IV supplementation. health care social worker evaluation requested arrange for patient AA rehab. Upon discharge the patient will follow up with PMD at [facility].
[2018-10-13] MEDS: Lactated Ringer's 1,000 ML IV SCH ×2 (14:50→21:56)
[2018-10-13] MEDS ORDERED: Potassium Chloride 20 mEq ER Tab PO ONE (16:00)
[2018-10-13 17:10] LABS: FOLATE > 20.0 ng/mL
--- NOTE | 2018-10-13 21:28 | CON ---
DATE OF CONSULTATION: 10/12/2018 REQUESTING PHYSICIAN: Dr. Ortega REASON FOR CONSULTATION: I have been asked to see this 37-year-old male, alcoholic, with a history of recurrent pancreatitis, multiple [facility] hospitalizations for the same, who developed abdominal pain 4 days ago after consuming 10-15 shots of Cognac. Two weeks prior, the patient was admitted with increasing abdominal pain, nausea and vomiting. Routine blood work showed elevated amylase and lipase. CT scan of the abdomen and pelvis did show some edema of the pancreatic parenchyma with peripancreatic stranding. There is also some thickening of the descending duodenum with nonspecific thickening of loops of small bowel as well as rectosigmoid junction. The patient denies any rectal bleeding and tenesmus. He denies any hematemesis or melena. He denies fevers or chills. PAST MEDICAL HISTORY: Notable for alcoholism, alcoholic liver disease, acute recurrent pancreatitis, hypertension, depression, GERD. PAST SURGICAL HISTORY: Notable for gastric bypass, cholecystectomy, appendectomy. FAMILY HISTORY: Noncontributory. SOCIAL HISTORY: The patient has a longstanding history of alcoholism. He drinks between 15-20 shots of Cognac daily. He denies cigarette smoking. REVIEW OF SYSTEMS: A 14-point review of systems is notable for abdominal pain, nausea, and vomiting. PHYSICAL EXAMINATION: GENERAL: Young male lying in bed in no acute distress. VITAL SIGNS: Temperature of 99.3, blood pressure 123/84, heart rate 98. HEENT: Reveal sclerae to be white. Conjunctivae pink. NECK: Supple. CHEST: Distant breath sounds. HEART: Regular rate and rhythm. ABDOMEN: Soft. There is mild epigastric tenderness with some guarding, but no rebound. EXTREMITIES: No edema. LABORATORY DATA: White blood cell count 5.7, hemoglobin 10.5. Chemistries reveal potassium of 2.9, total bilirubin of 2.6, AST 516, ALT 127, alkaline phosphatase of 153. Amylase and lipase on admission to the hospital were 229 and 2080. IMPRESSION: 1. Acute pancreatitis secondary to alcohol abuse. 2. Alcoholic liver disease with expected AST greater than ALT with steatosis seen on CAT scan. There is also hepatomegaly. 3. Nonspecific mural thickening of loops of small bowel in the rectosigmoid junction. Clinically, the patient does not have proctitis as he denies rectal bleeding or tenesmus. Mural thickening may be due to under distention of the colon from insufficient contrast. RECOMMENDATIONS: 1. Advance diet as tolerated. 2. Analgesics as needed. 3. Continue IV fluids. 4. Replace potassium. Herman Mckeon MD
[2018-10-14] MEDS: Morphine 2 mg/ml ISec IVP PRN ×5 (03:35→20:30)
[2018-10-14] MEDS: Lactated Ringer's 1,000 ML IV SCH (03:36)
[2018-10-14] MEDS: Pantoprazole 20 mg EC Tab PO SCH (06:37)
[2018-10-14 07:14] LABS: BASO # 0.05 K/mm3 (0.0-2.0); BASO % 1.2 % (0.0-3.0); EOS # 0.2 (0.0-0.7); EOS % 3.6 % (1.5-5.0); HEMOGLOBIN 10.3 g/dL (14.0-18.0); LYMPH # 1.2 (1.2-3.4); LYMPH % 29.2 % (22.0-35.0); MEAN CELL VOLUME 83.8 fl (80.0-105.0); MEAN CORPUSCULAR HEMOGLOBIN 28.8 pg (25.0-35.0); MEAN CORPUSCULAR HGB CONC 34.3 g/dl (31.0-37.0); MEAN PLATELET VOLUME 10.2 fl (7.0-11.0); MONO # 0.4 (0.1-0.6); MONO % 8.6 % (1.0-6.0); RBC 3.58 10^6/uL (3.5-6.1); RED CELL DISTRIBUTION WIDTH 13.8 % (11.5-14.5); WHITE BLOOD COUNT 4.2 10^3/uL (4.5-11.0)
[2018-10-14 07:51] LABS: ALB/GLOB RATIO 1.1 (1.1-1.8); ALBUMIN 3.7 g/dL (3.0-4.8); ALT/SGPT 98 U/L (7-56); AST/SGOT 181 U/L (17-59); BLOOD UREA NITROGEN 3 mg/dL (7-21); CALCIUM 8.7 mg/dL (8.4-10.5); GFR NON-AFRICAN AMERICAN > 60
[2018-10-14] MEDS ORDERED: Magnesium Sulfate 2 gm/50 ml 2 GM/50 ML BAG IVPB ONE (07:54)
[2018-10-14] MEDS ORDERED: Potassium Chloride 20 mEq ER Tab PO STA (07:54)
[2018-10-14] MEDS: Multivitamin Therapeutic Tab PO SCH (08:56)
[2018-10-14] MEDS: Enoxaparin 40 mg Syringe SC SCH (09:02)
--- NOTE | 2018-10-14 09:31 | CP.PCM.PN ---
<Hillary Fuentes - Last Filed: 10/14/18 13:32> Subjective - Date & Time of Evaluation Date of Evaluation: 10/14/18 Time of Evaluation: 09:28 - Subjective Subjective: Hillary Fuentes, PGY-1 Medicine Progress Note: Pt was seen and examined this AM at bedside. Yesterday pt was unable to tolerate diet advancement, placed back to NPO. Pt states that he is feeling better today and though the abdominal pain is still present he would like to try and eat. Pt otherwise has no other acute complaints at this time. Objective - Vital Signs/Intake and Output Vital Signs (last 24 hours): Temp Pulse Resp BP Pulse Ox 98.6 F 86 20 138/93 H 94 L 10/14/18 09:05 10/14/18 09:05 10/14/18 09:05 10/14/18 09:05 10/14/18 09:05 Intake and Output: 10/14/18 10/14/18 06:59 18:59 Intake Total 0 Output Total 500 Balance -500 - Medications Medications: Current Medications Amlodipine Besylate (Norvasc) 10 mg PO DAILY ON LICENSE OF [facility] Last Admin: 10/14/18 09:01 Dose: 10 mg Atenolol (Tenormin) 100 mg PO HS ON LICENSE OF [facility] Last Admin: 10/13/18 21:46 Dose: 100 mg Enoxaparin Sodium (Lovenox) 40 mg SC DAILY ON LICENSE OF [facility]; Protocol Last Admin: 10/14/18 09:02 Dose: 40 mg Folic Acid (Folic Acid) 1 mg PO DAILY ON LICENSE OF [facility] Last Admin: 10/14/18 09:01 Dose: 1 mg Hydralazine HCl (Apresoline) 25 mg PO Q8H PRN PRN Reason: SBP above 180 Potassium Chloride (Potassium Chloride 10 Meq/100 Ml) 10 meq in 100 mls @ 100 mls/hr IVPB Q2H ON LICENSE OF [facility] Stop: 10/14/18 10:59 Potassium Chloride 40 meq/ (Lactated Ringer's) 1,020 mls @ 150 mls/hr IV .Q6H48M ON LICENSE OF [facility] Lorazepam (Ativan) 1 mg IVP Q4H PRN; Protocol PRN Reason: Symptoms of alcohol withdrawl Last Admin: 10/13/18 23:31 Dose: 1 mg Losartan Potassium (Cozaar) 100 mg PO DAILY ON LICENSE OF [facility] Last Admin: 10/14/18 09:01 Dose: 100 mg Morphine Sulfate (Morphine) 2 mg IVP Q4H PRN PRN Reason: Pain, severe (8-10) Last Admin: 10/14/18 07:33 Dose: 2 mg Multivitamins (Thera Tab) 1 tab PO 0800 ON LICENSE OF [facility] Last Admin: 10/14/18 08:56 Dose: 1 tab Ondansetron HCl (Zofran Inj) 4 mg IVP Q6H PRN PRN Reason: Nausea/Vomiting Pantoprazole Sodium (Protonix Ec Tab) 40 mg PO 0600 ON LICENSE OF [facility] Last Admin: 10/14/18 06:37 Dose: 40 mg Sertraline HCl (Zoloft) 100 mg PO DAILY ON LICENSE OF [facility] Last Admin: 10/14/18 09:02 Dose: 100 mg Thiamine HCl (Vitamin B1 Tab) 100 mg PO DAILY ON LICENSE OF [facility] Last Admin: 10/14/18 09:03 Dose: 100 mg Trazodone HCl (Desyrel) 100 mg PO HS ON LICENSE OF [facility] Last Admin: 10/13/18 21:47 Dose: 100 mg - Labs Labs: 10/14/18 06:20 10/14/18 07:00 PT 11.7 SECONDS (9.4-12.5) 10/12/18 06:26 INR 1.04 10/12/18 06:26 APTT 30.0 Seconds (26.9-38.3) 10/12/18 06:26 - Constitutional Constitutional Exam: No acute distress - Head Exam Head Exam: ATRAUMATIC, NORMOCEPHALIC - Eye Exam Eye Exam: EOMI, Normal appearance, PERRL - ENT Exam ENT Exam: Mucous Membranes Moist, Normal Oropharynx - Neck Exam Neck exam: Positive for: Normal Inspection - Respiratory Exam Respiratory Exam: Clear to Auscultation Bilateral, NORMAL BREATHING PATTERN. absent: Accessory Muscle Use, Wheezes - Cardiovascular Exam Cardiovascular Exam: Tachycardia, +S1, +S2. absent: Systolic Murmur - GI/Abdominal Exam GI & Abdominal Exam: Tenderness (epigastric area). absent: Guarding, Rebound Additional comments: keloids forming around prior laparotomy scars - Extremities Exam Extremities exam: Positive for: normal inspection. Negative for: calf tenderness - Back Exam Back exam: absent: CVA tenderness (L), CVA tenderness (R) - Neurological Exam Neurological exam: Alert, CN II-XII Intact, Oriented x3 - Psychiatric Exam Psychiatric exam: Normal Affect, Normal Mood - Skin Skin Exam: Dry, Intact, Normal Color, Warm Assessment and Plan - Assessment and Plan (Free Text) Assessment: 37 year old male with a past medical history of hypertension, alcohol abuse/dependence, pancreatitis, and gastric bypass who presented with gradually worsening epigastric pain, decreased PO intake, and was found to have a lipase of [address] findings consistent with acute pancreatitis Plan: Acute Pancreatitis - Lipase 0 - CT showed findings consistent with mild acute pancreatitis. Mild wall thickening of the traversing duodenum likely reactive secondary to adjacent inflammation of the pancreas. Mild wall thickening of few proximal of the small bowel also felt to present however no evidence acute mechanical bowel obstruction. Marked hepatomegaly and fatty infiltration. Persistent mild wall thickening of the rectum distal sigmoid colon consistent nonspecific. - US of abd - Fatty liver - Hep panel - LFTs downtrending. - Pt will be advanced today and will be seen how pt tolerates diet - LR 150 mls/hr w/ 40 meq K - Zofran 4 mg q6h PRN for nausea - Morphine 2 mg q4h PRN for severe pain Alcohol withdrawal - CIWA - Last CIWA 0 - MV, Thiamine, and Folic Acid - b12, folate, and Iron - all wnl - Nutrion consult GERD - Protonix 20 mg PO 06:00 Hypertension - Atenolol 100 mg HS - Amlodipine 10 mg - Losartan 100 mg daily - Hydralazine 25 mg q8h for SBP greater than 180 Depression - Zoloft 100 mg - Trazadone 100 mg HS Hypokalemia - 40 mEq given in ED via IV and 40 mg given PO - IVF supplemented with 40 mEq K GI/DVT prophylaxis - SCD - Lovenox 40 mg daily - Protonix 20 mg 06:00 Case was reviewed and discussed with attending physician, Dr. Nury Fuentes PGY-1 <Mk Arrington - Last Filed: 10/14/18 17:44> Objective - Vital Signs/Intake and Output Vital Signs (last 24 hours): Temp Pulse Resp BP Pulse Ox 99 F 92 H 20 151/111 H 97 10/14/18 17:02 10/14/18 17:02 10/14/18 17:02 10/14/18 17:02 10/14/18 17:02 Intake and Output: 10/14/18 10/14/18 06:59 18:59 Intake Total 0 Output Total 500 Balance -500 - Medications Medications: Current Medications Amlodipine Besylate (Norvasc) 10 mg PO DAILY ON LICENSE OF [facility] Last Admin: 10/14/18 09:01 Dose: 10 mg Atenolol (Tenormin) 100 mg PO HS ON LICENSE OF [facility] Last Admin: 10/13/18 21:46 Dose: 100 mg Enoxaparin Sodium (Lovenox) 40 mg SC DAILY ON LICENSE OF [facility]; Protocol Last Admin: 10/14/18 09:02 Dose: 40 mg Folic Acid (Folic Acid) 1 mg PO DAILY ON LICENSE OF [facility] Last Admin: 10/14/18 09:01 Dose: 1 mg Hydralazine HCl (Apresoline) 25 mg PO Q8H PRN PRN Reason: SBP above 180 Losartan Potassium (Cozaar) 100 mg PO DAILY ON LICENSE OF [facility] Last Admin: 10/14/18 09:01 Dose: 100 mg Morphine Sulfate (Morphine) 2 mg IVP Q4H PRN PRN Reason: Pain, severe (8-10) Last Admin: 10/14/18 15:50 Dose: 2 mg Multivitamins (Thera Tab) 1 tab PO 0800 ON LICENSE OF [facility] Last Admin: 10/14/18 08:56 Dose: 1 tab Ondansetron HCl (Zofran Inj) 4 mg IVP Q6H PRN PRN Reason: Nausea/Vomiting Pantoprazole Sodium (Protonix Ec Tab) 40 mg PO 0600 ON LICENSE OF [facility] Last Admin: 10/14/18 06:37 Dose: 40 mg Sertraline HCl (Zoloft) 100 mg PO DAILY ON LICENSE OF [facility] Last Admin: 10/14/18 09:02 Dose: 100 mg Thiamine HCl (Vitamin B1 Tab) 100 mg PO DAILY ON LICENSE OF [facility] Last Admin: 10/14/18 09:03 Dose: 100 mg Trazodone HCl (Desyrel) 100 mg PO HS ON LICENSE OF [facility] Last Admin: 10/13/18 21:47 Dose: 100 mg - Labs Labs: 10/14/18 06:20 10/14/18 07:00 PT 11.7 SECONDS (9.4-12.5) 10/12/18 06:26 INR 1.04 10/12/18 06:26 APTT 30.0 Seconds (26.9-38.3) 10/12/18 06:26 Attending/Attestation - Attestation I have personally seen and examined this patient.: Yes I have fully participated in the care of the patient.: Yes I have reviewed all pertinent clinical information, including history, physical exam and plan: Yes Notes (Text): 10/14/18 17:42 Attending note; Patient seen and examined with resident.. Patient is alert and awake. complaining of epigastric pain. Denies any nausea, vomiting. Denies any fevers, chills. Started on liquid diet today. Advance as tolerated. Patient is a 37 year old male with a past medical history of hypertension, alcohol abuse/dependence, pancreatitis, and gastric bypass who presented with gradually worsening epigastric pain, decreased PO intake, and was found to have a lipase of [address] findings consistent with acute pancreatitis. 1. Acute pancreatitis; secondary to alcohol abuse. Started on clear liquid diet today. continue IV fluids. IV morphine for pain management. 2. Chronic alcohol abuse; complete alcohol cessation is strongly advised . Continue multivitamin, thiamine, folic acid. Monitor with [facility] protocol. Continue IV Ativan as needed. Advised to follow-up with AA meetings on AA rehab. 3. Hypertension; continue Norvasc, metoprolol. 4. Depression; continue trazodone and Zoloft. 5. GI prophylaxis with Protonix. 6. Elevtaed LFTs; trending down. secondary to alcohol abuse. monitor closely. GI evaluation appreciated. Advance diet as tolerated. No evidence of procitis. 7. Hypokelmia; continue p.o. and IV supplementation. possible discharge home tomorrow if clinically improves. Upon discharge the patient will follow up with PMD at [facility]. 10/14/18 17:44
[2018-10-14] MEDS: Potassium Chloride 40 MEQ in Lactated Ringer's 1,000 ML IV SCH ×2 (09:51→17:38)
--- NOTE | 2018-10-14 15:22 | PN ---
DATE: 10/14/2018 SUBJECTIVE: The patient is lying in bed. He feels better, abdominal pain is less. He has not had any further vomiting. Nursing states that he continues to request narcotic analgesics every 4 hours. OBJECTIVE: VITAL SIGNS: Reveal temperature of 98.6, blood pressure 138/93, heart rate of 86. HEENT: Reveals sclerae to be white. Conjunctivae pink. NECK: Supple. CHEST: Lungs clear. HEART: Reveals regular rate and rhythm. ABDOMEN: Soft. Mild diffuse tenderness, no rebound or guarding. EXTREMITIES: Show no edema. LABORATORY DATA: Reveal white blood cell count 4.2, hemoglobin 10.3. Chemistries reveal potassium 2.8, total bilirubin 1.9, AST down to 181, ALT 98, alkaline phosphatase of 130. IMPRESSION: 1. Alcohol-induced pancreatitis. 2. Alcoholic hepatitis. RECOMMENDATIONS: 1. Continue IV fluids. 2. Advance diet as tolerated. Herman Mckeon MD
[2018-10-14 17:49] LABS: HEPATITIS B SURFACE AG Negative (NEGATIVE)
[2018-10-14 17:55] LABS: HEPATITIS A IGM NEGATIVE (NEGATIVE); HEPATITIS B CORE AB NEGATIVE (NEGATIVE)
[2018-10-14 18:06] LABS: HEPATITIS C ANTIBODY NEGATIVE (NEGATIVE)
[2018-10-14 19:03] VITALS: RESP 18
[2018-10-14 19:32] LABS: BLOOD UREA NITROGEN 3 mg/dL (7-21); CALCIUM 9.3 mg/dL (8.4-10.5); GFR NON-AFRICAN AMERICAN > 60
[2018-10-15 02:31] VITALS: PULSE 79
[2018-10-15] MEDS: Morphine 2 mg/ml ISec IVP PRN ×3 (02:45→12:59)
[2018-10-15] MEDS: Pantoprazole 20 mg EC Tab PO SCH (06:05)
[2018-10-15 07:04] LABS: BASO # 0.04 K/mm3 (0.0-2.0); EOS # 0.1 (0.0-0.7); EOS % 3.6 % (1.5-5.0); HEMOGLOBIN 10.8 g/dL (14.0-18.0); LYMPH # 1.2 (1.2-3.4); LYMPH % 31.2 % (22.0-35.0); MEAN CELL VOLUME 83.3 fl (80.0-105.0); MEAN CORPUSCULAR HEMOGLOBIN 28.6 pg (25.0-35.0); MEAN CORPUSCULAR HGB CONC 34.3 g/dl (31.0-37.0); MEAN PLATELET VOLUME 10.3 fl (7.0-11.0); MONO # 0.4 (0.1-0.6); MONO % 11.1 % (1.0-6.0); RBC 3.78 10^6/uL (3.5-6.1); RED CELL DISTRIBUTION WIDTH 13.9 % (11.5-14.5); WHITE BLOOD COUNT 3.9 10^3/uL (4.5-11.0)
[2018-10-15 07:22] VITALS: TEMP 98.3; O2SAT 95
[2018-10-15 08:05] LABS: ALB/GLOB RATIO 1.2 (1.1-1.8); ALT/SGPT 78 U/L (7-56); AST/SGOT 135 U/L (17-59); BLOOD UREA NITROGEN 4 mg/dL (7-21); CALCIUM 9.4 mg/dL (8.4-10.5); GFR NON-AFRICAN AMERICAN > 60
[2018-10-15] MEDS ORDERED: Potassium Chloride 20 mEq ER Tab PO STA (08:24)
[2018-10-15] MEDS: Multivitamin Therapeutic Tab PO SCH (08:47)
[2018-10-15] MEDS: Enoxaparin 40 mg Syringe SC SCH (09:38)
[2018-10-15 09:40] VITALS: BP 150/92
[2018-10-15] MEDS ORDERED: Magnesium Sulfate 2 gm/50 ml 2 GM/50 ML BAG IVPB ONE (10:21)
--- NOTE | 2018-10-15 11:15 | CP.PCM.DIS ---
<Hillary Fuentes - Last Filed: 10/15/18 15:04> Provider - Provider Date of Admission: 10/12/18 09:58 Attending physician: Mk Arrington MD Consults: 10/12/18 14:00 Gastroenterology Consult Routine Comment: Consulting Provider: Herman Mckeon Consulting Physician: Herman Mckeon Reason for Consult: possible proctitis Time Spent in preparation of Discharge (in minutes): 45 Diagnosis - Discharge Diagnosis (1) Pancreatitis Status: Acute Priority: High (2) Abdominal pain Status: Acute Priority: High (3) Alcohol use disorder, severe, dependence Status: Acute Hospital Course - Lab Results Lab Results: Most Recent Lab Values WBC 3.9 10^3/uL (4.5-11.0) L 10/15/18 06:20 RBC 3.78 10^6/uL (3.5-6.1) 10/15/18 06:20 Hgb 10.8 g/dL (14.0-18.0) L 10/15/18 06:20 Hct 31.5 % (42.0-52.0) L 10/15/18 06:20 MCV 83.3 fl (80.0-105.0) 10/15/18 06:20 MCH 28.6 pg (25.0-35.0) 10/15/18 06:20 MCHC 34.3 g/dl (31.0-37.0) 10/15/18 06:20 RDW 13.9 % (11.5-14.5) 10/15/18 06:20 Plt Count 233 10^3/uL (120.0-450.0) 10/15/18 06:20 MPV 10.3 fl (7.0-11.0) 10/15/18 06:20 Neut % (Auto) 53.1 % (50.0-68.0) 10/15/18 06:20 Lymph % (Auto) 31.2 % (22.0-35.0) 10/15/18 06:20 Ashley % (Auto) 11.1 % (1.0-6.0) H 10/15/18 06:20 Eos % (Auto) 3.6 % (1.5-5.0) 10/15/18 06:20 Baso % (Auto) 1.0 % (0.0-3.0) 10/15/18 06:20 Lymph # (Auto) 1.2 (1.2-3.4) 10/15/18 06:20 Ashley # (Auto) 0.4 (0.1-0.6) 10/15/18 06:20 Eos # (Auto) 0.1 (0.0-0.7) 10/15/18 06:20 Baso # (Auto) 0.04 K/mm3 (0.0-2.0) 10/15/18 06:20 Absolute Neuts (auto) 2.06 (1.4-6.5) 10/15/18 06:20 PT 11.7 SECONDS (9.4-12.5) 10/12/18 06:26 INR 1.04 10/12/18 06:26 APTT 30.0 Seconds (26.9-38.3) 10/12/18 06:26 Sodium 141 mmol/L (132-148) 10/15/18 06:20 Potassium 3.1 mmol/L (3.6-5.0) L 10/15/18 06:20 Chloride 100 mmol/L (98-107) 10/15/18 06:20 Carbon Dioxide 30 mmol/L (21-33) 10/15/18 06:20 Anion Gap 15 (10-20) 10/15/18 06:20 BUN 4 mg/dL (7-21) L 10/15/18 06:20 Creatinine 0.7 mg/dl (0.8-1.5) L 10/15/18 06:20 Est GFR ( Amer) > 60 10/15/18 06:20 Est GFR (Non-Af Amer) > 60 10/15/18 06:20 Random Glucose 75 mg/dL (70-110) 10/15/18 06:20 Calcium 9.4 mg/dL (8.4-10.5) 10/15/18 06:20 Phosphorus 3.4 mg/dL (2.5-4.5) 10/13/18 06:30 Magnesium 2.0 mg/dL (1.7-2.2) 10/15/18 06:20 Iron 86 ug/dL (45-180) 10/13/18 10:42 TIBC 314 ug/dL (261-462) 10/13/18 10:42 % Saturation 27 % (20-55) 10/13/18 10:42 Total Bilirubin 1.6 mg/dL (0.2-1.3) H 10/15/18 06:20 AST 135 U/L (17-59) H D 10/15/18 06:20 ALT 78 U/L (7-56) H 10/15/18 06:20 Alkaline Phosphatase 134 U/L (38-126) H 10/15/18 06:20 Lactate Dehydrogenase 773 U/L (333-699) H 10/12/18 06:26 Total Creatine Kinase 125 U/L (35-230) 10/12/18 06:26 Troponin I < 0.01 ng/mL 10/12/18 06:26 Total Protein 7.4 g/dL (5.8-8.3) 10/15/18 06:20 Albumin 4.0 g/dL (3.0-4.8) 10/15/18 06:20 Globulin 3.4 gm/dL 10/15/18 06:20 Albumin/Globulin Ratio 1.2 (1.1-1.8) 10/15/18 06:20 Amylase 229 U/L (35-125) H 10/12/18 06:26 Lipase 2080 U/L (23-300) H 10/12/18 06:26 Vitamin B12 > 1000 pg/mL (239-931) H 10/13/18 10:41 Folate > 20.0 ng/mL 10/13/18 10:41 Alcohol, Quantitative < 10 mg/dL (0-10) 10/12/18 06:00 Hepatitis A IgM Ab Negative (NEGATIVE) 10/14/18 13:00 Hep Bs Antigen Negative (NEGATIVE) 10/14/18 13:00 Hep B Core IgM Ab Negative (NEGATIVE) 10/14/18 13:00 Hepatitis C Antibody Negative (NEGATIVE) 10/14/18 13:00 - Hospital Course Hospital Course: Upon Admission: 37 year old male with a past medical history of hypertension, alcohol abuse, pancreatitis, and gastric bypass who presented with 4 days of progressively worsening epigastric pain, nausea, and vomiting . He reports drinking 10-20 drinks per day, but stopping on Saturday of this week due to epigastric pain. The epigastric pain is 9/10 in severity, sharp-stabbing pain, radiating to the back, worsened with drinking anything, initially improved with taking Advil every 6 hours (but is now not responding), and now is progressively getting worse. He reports last drinking alcohol on Saturday. He also reports having diarrhea, about 4-5 times a day that is not blood or dark. He denies any chest pain, shortness of breath, fever, chills, unilateral weakness or numbness. He does admit to experiencing tremors, difficulty concentrating, and some anxiety since he has stopped drinking alcohol. Otherwise, 12 point ROS is negative except as mentioned above. Hospital Course: Pt is being worked up for pancreatitis. Pt had CT done which showed findings consistent with mild acute pancreatitis. Mild wall thickening of the traversing duodenum likely reactive secondary to adjacent inflammation of the pancreas. Mild wall thickening of few proximal of the small bowel also felt to present however no evidence acute mechanical bowel obstruction. Marked hepatomegaly and fatty infiltration. Persistent mild wall thickening of the rectum distal sigmoid colon consistent nonspecific. Pt was also noted to have a lipase elevated at above 2000. The next day the pt was noted to have a rise in his LFTs likely 2/2 etOH abuse, but US of abd was ordered to r/o stone. Pt had an abd US done which showed the presence of fatty liver. Pt also had a hepatitis panel done which was noted to be negative. During pts admission pt was noted to be hypokalemic and was repleted appropriately. Pt was also placed on CIWA protocol due to noted and extensive hx of alcohol abuse. Pt was noted to have CIWAs less than 10 throughout his hospitalization and ativan was tapered down to just PRN and when it was noted that the pts CIWA continued to remain low and did not need PRN ativan that too was taken off. Pt was continued on the MVs, thiamine and folate. Due to pts anemia work-up was done and pts B12, folate and Fe levels were noted to be wnls. GI team was consulted and agreed with management to advance diet as tolerated and to give pt IVFs until pt can tolerate PO intake. Was advanced slowly and then the pt was able to tolerate PO intake without associated N/V. Pt was cleared for d/c by GI and was medically optimized for discharge. The pt was informed that he will need to stop drinking to prevent future attacks of this from happening. Pt expressed understanding and agreement with the counseling. Pt was also informed about the plan for discharge and pt expressed understanding and agreement for discharge with follow-up with pts PMD. All of the pts questions and concerns were addressed prior to d/c. Discharge Exam - Head Exam Head Exam: ATRAUMATIC, NORMAL INSPECTION, NORMOCEPHALIC - Eye Exam Eye Exam: EOMI, Normal appearance, PERRL - Respiratory Exam Respiratory Exam: Clear to PA & Lateral, NORMAL BREATHING PATTERN, UNREMARKABLE. absent: Accessory Muscle Use, Rales, Rhonchi, Wheezes, Respiratory Distress, Stridor - Cardiovascular Exam Cardiovascular Exam: RRR, +S1, +S2. absent: Gallop, Rubs - GI/Abdominal Exam GI & Abdominal Exam: Normal Bowel Sounds, Soft, Unremarkable. absent: Distended, Firm, Guarding - Extremities Exam Extremities exam: normal capillary refill, pedal pulses present - Back Exam Back exam: NORMAL INSPECTION. absent: CVA tenderness (L), CVA tenderness (R) - Psychiatric Exam Psychiatric exam: Normal Affect, Normal Mood - Skin Skin Exam: Dry, Normal Color, Warm Discharge Plan - Follow Up Plan Condition: FAIR Disposition: HOME/ ROUTINE Instructions: Pancreatitis (DC), Alcohol Abuse and Alcoholism (DC) Additional Instructions: - Please follow up with your Primary Medical Doctor at [facility] within 3-5 days after discharge. - Please continue to take your home medications as directed by your Primary care doctor. - Please refrain from drinking alcohol as this is the likely cause of your symptoms and will continue to cause this to persist in the future if you do not stop drinking. - When you go to your appointment with your primary care doctor, please have repeat blood work done to continue to monitor your electrolytes. - If any of these symptoms return or if you have any new symptoms please return to your nearest emergency department. Referrals: [facility] [Provider Group] <Mk Arrington - Last Filed: 10/15/18 17:26> Provider - Provider Date of Admission: 10/12/18 09:58 Attending physician: Mk Arrington MD Consults: 10/12/18 14:00 Gastroenterology Consult Routine Comment: Consulting Provider: Herman Mckeon Consulting Physician: Herman Mckeon Reason for Consult: possible proctitis Hospital Course - Lab Results Lab Results: Most Recent Lab Values WBC 3.9 10^3/uL (4.5-11.0) L 10/15/18 06:20 RBC 3.78 10^6/uL (3.5-6.1) 10/15/18 06:20 Hgb 10.8 g/dL (14.0-18.0) L 10/15/18 06:20 Hct 31.5 % (42.0-52.0) L 10/15/18 06:20 MCV 83.3 fl (80.0-105.0) 10/15/18 06:20 MCH 28.6 pg (25.0-35.0) 10/15/18 06:20 MCHC 34.3 g/dl (31.0-37.0) 10/15/18 06:20 RDW 13.9 % (11.5-14.5) 10/15/18 06:20 Plt Count 233 10^3/uL (120.0-450.0) 10/15/18 06:20 MPV 10.3 fl (7.0-11.0) 10/15/18 06:20 Neut % (Auto) 53.1 % (50.0-68.0) 10/15/18 06:20 Lymph % (Auto) 31.2 % (22.0-35.0) 10/15/18 06:20 Ashley % (Auto) 11.1 % (1.0-6.0) H 10/15/18 06:20 Eos % (Auto) 3.6 % (1.5-5.0) 10/15/18 06:20 Baso % (Auto) 1.0 % (0.0-3.0) 10/15/18 06:20 Lymph # (Auto) 1.2 (1.2-3.4) 10/15/18 06:20 Ashley # (Auto) 0.4 (0.1-0.6) 10/15/18 06:20 Eos # (Auto) 0.1 (0.0-0.7) 10/15/18 06:20 Baso # (Auto) 0.04 K/mm3 (0.0-2.0) 10/15/18 06:20 Absolute Neuts (auto) 2.06 (1.4-6.5) 10/15/18 06:20 PT 11.7 SECONDS (9.4-12.5) 10/12/18 06:26 INR 1.04 10/12/18 06:26 APTT 30.0 Seconds (26.9-38.3) 10/12/18 06:26 Sodium 141 mmol/L (132-148) 10/15/18 06:20 Potassium 3.1 mmol/L (3.6-5.0) L 10/15/18 06:20 Chloride 100 mmol/L (98-107) 10/15/18 06:20 Carbon Dioxide 30 mmol/L (21-33) 10/15/18 06:20 Anion Gap 15 (10-20) 10/15/18 06:20 BUN 4 mg/dL (7-21) L 10/15/18 06:20 Creatinine 0.7 mg/dl (0.8-1.5) L 10/15/18 06:20 Est GFR ( Amer) > 60 10/15/18 06:20 Est GFR (Non-Af Amer) > 60 10/15/18 06:20 Random Glucose 75 mg/dL (70-110) 10/15/18 06:20 Calcium 9.4 mg/dL (8.4-10.5) 10/15/18 06:20 Phosphorus 3.4 mg/dL (2.5-4.5) 10/13/18 06:30 Magnesium 2.0 mg/dL (1.7-2.2) 10/15/18 06:20 Iron 86 ug/dL (45-180) 10/13/18 10:42 TIBC 314 ug/dL (261-462) 10/13/18 10:42 % Saturation 27 % (20-55) 10/13/18 10:42 Total Bilirubin 1.6 mg/dL (0.2-1.3) H 10/15/18 06:20 AST 135 U/L (17-59) H D 10/15/18 06:20 ALT 78 U/L (7-56) H 10/15/18 06:20 Alkaline Phosphatase 134 U/L (38-126) H 10/15/18 06:20 Lactate Dehydrogenase 773 U/L (333-699) H 10/12/18 06:26 Total Creatine Kinase 125 U/L (35-230) 10/12/18 06:26 Troponin I < 0.01 ng/mL 10/12/18 06:26 Total Protein 7.4 g/dL (5.8-8.3) 10/15/18 06:20 Albumin 4.0 g/dL (3.0-4.8) 10/15/18 06:20 Globulin 3.4 gm/dL 10/15/18 06:20 Albumin/Globulin Ratio 1.2 (1.1-1.8) 10/15/18 06:20 Amylase 229 U/L (35-125) H 10/12/18 06:26 Lipase 2080 U/L (23-300) H 10/12/18 06:26 Vitamin B12 > 1000 pg/mL (239-931) H 10/13/18 10:41 Folate > 20.0 ng/mL 10/13/18 10:41 Alcohol, Quantitative < 10 mg/dL (0-10) 10/12/18 06:00 Hepatitis A IgM Ab Negative (NEGATIVE) 10/14/18 13:00 Hep Bs Antigen Negative (NEGATIVE) 10/14/18 13:00 Hep B Core IgM Ab Negative (NEGATIVE) 10/14/18 13:00 Hepatitis C Antibody Negative (NEGATIVE) 10/14/18 13:00 Attending/Attestation - Attestation I have personally seen and examined this patient.: Yes I have fully participated in the care of the patient.: Yes I have reviewed all pertinent clinical information, including history, physical exam and plan: Yes Notes (Text): 10/15/18 17:23 Attending note; Patient seen and examined with resident.. Patient is alert and awake. Abdominal pain resolved. Denies any nausea, vomiting. Tolerating soft diet. Patient is a 37 year old male with a past medical history of hypertension, alcohol abuse/dependence, pancreatitis, and gastric bypass who presented with gradually worsening epigastric pain, decreased PO intake, and was found to have a lipase of [address] findings consistent with acute pancreatitis. 1. Acute pancreatitis; secondary to alcohol abuse. Currently on soft diet. Strongly advised to avoid fatty foods. Placed on low-fat and low-cholesterol diet. Dietary education given. 2. Chronic alcohol abuse; complete alcohol cessation is strongly advised . Continue multivitamin, thiamine, folic acid. Advised to follow-up with AA meetings on AA rehab. 3. Hypertension; continue Norvasc, metoprolol. 4. Depression; continue trazodone and Zoloft. 5. GI prophylaxis with Protonix. 6. Elevtaed LFTs; trending down. secondary to alcohol abuse. monitor closely. GI evaluation appreciated. Advance diet as tolerated. No evidence of procitis. 7. Hypokelmia/hypomagnesemia; potassium and magnesium supplement. Discharge home today. Follow-up with GI as outpatient. Upon discharge the patient will follow up with PMD at [facility]. 10/15/18 17:25
[2018-10-15] MEDS ORDERED: Potassium Chloride 20 mEq ER Tab PO ONE (12:00)
--- NOTE | 2018-10-15 12:14 | PN ---
DATE: 10/15/2018 SUBJECTIVE: The patient is sitting in bed. He feels slightly better, abdominal pain is less. He denies any nausea or vomiting. He is tolerating a liquid diet. PHYSICAL EXAMINATION VITAL SIGNS: Reveal temperature of 98.3, blood pressure 150/92, heart rate 79. HEENT: Reveals sclerae to be white. Conjunctivae pink. NECK: Supple. CHEST: Lungs are clear. HEART: Reveals regular rate and rhythm. ABDOMEN: Soft. Mild diffuse tenderness. No rebound. No guarding. EXTREMITIES: Show no edema. LABORATORY DATA: Reveals white blood cell count 3.9, hemoglobin 10.8. Serologies show negative hepatitis serology. Chemistries reveal potassium of 3.1, AST 135, ALT 78, alkaline phosphatase is 134. IMPRESSION 1. Acute pancreatitis secondary to alcohol abuse. 2. Alcoholic hepatitis. RECOMMENDATIONS: The patient can be discharged home. He has been instructed to abstain from alcohol. Herman Mckeon MD
== END 2018-10-15 16:39 | disposition home or self-care (01) | DRG 282 ==
LOC: ED 05:39 → ERH 09:58 → 3RSO 11:12
PROVIDERS: ADMIT Hospitalist; ATTEND Internal Medicine
DX: K85.20 Alcohol induced acute pancreatitis without necrosis or infection (principal); E83.42 Hypomagnesemia; K70.10 Alcoholic hepatitis without ascites; K76.0 Fatty (change of) liver, not elsewhere classified; I10 Essential (primary) hypertension; K86.1 Other chronic pancreatitis; E87.6 Hypokalemia; F32.89 Other specified depressive episodes; F41.9 Anxiety disorder, unspecified; K21.9 Gastro-esophageal reflux disease without esophagitis; Z79.899 Other long term (current) drug therapy; Z82.49 Family history of ischemic heart disease and other diseases of the circulatory system; Z83.3 Family history of diabetes mellitus; Z90.49 Acquired absence of other specified parts of digestive tract; Z98.84 Bariatric surgery status; F10.239 Alcohol dependence with withdrawal, unspecified